=== PATIENT | female | born 1970 | race Caucasian/White ===

== ENCOUNTER 2016-06-05 14:13 | Emergency (ER) | payer OTHER ==
[~2016-06-05] VITALS: Ht 160 cm; Wt 62.0 kg
[~2016-06-05 14:13] MED LIST: CITA40TA12 PO; CYCL5TAB PO; IBUP600T44 PO
[2016-06-05 14:20] VITALS: TEMP 36.9; Ht 160 cm; Wt 62.0 kg
[2016-06-05] MEDS ORDERED: OXYCODONE HCL IR 5 MG TAB (IMMEDIATE RELEASE) PO STA (15:07)
[2016-06-05] MEDS ORDERED: TRAZ50TA35 PO (15:21)
[2016-06-05] MEDS ORDERED: SERT-234 PO (15:21)
[2016-06-05] MEDS ORDERED: KLN1X PO (15:21)
[2016-06-05] MEDS ORDERED: BUPR-83 PO (15:21)
[2016-06-05] MEDS ORDERED: ABL10 PO (15:21)
--- NOTE | 2016-06-05 16:03 | DIAGNOSTIC IMAGING REPORT ---
LUMBAR SPINE 5 VIEWS HISTORY: Pain LOW BACK PAIN, HX OF DECOMPRESSION COMPARISON: None. FINDINGS: There is no fracture. No subluxation. Moderate degenerative intervertebral this change. No acute compression deformity. IMPRESSION: Moderate degenerative change. No acute process. Electronically signed by: Derek Dewey M.D. 06/05/2016 4:01 PM
[2016-06-05] MEDS ORDERED: OXYC1TAB3 PO (16:51)
--- NOTE | 2016-06-05 16:53 | EMERGENCY ROOM VISIT NOTE ---
ED Visit Note First contact with patient: 14:36 CHIEF COMPLAINT: Low back pain 4 days HISTORY OF PRESENT ILLNESS: Patient is a 45-year-old white female who is a little over a year status post L3 through 5 lumbar decompression who presents to the emergency department for evaluation of low back pain 4 days after an injury. She has had intermittent pain and chronic right leg weakness since her lumbar decompression in March 2015. She recently was seen by her surgeon, who wanted to have a new MRI done, but her insurance would not authorize an MRI or epidural steroid injections until she completed 4-6 weeks of physical therapy. She had her initial PT assessment yesterday. She has did some stretching and heat. 4 days prior to that however, patient states that her right leg buckled on her while she was taking out the dog, and she twisted. She did not fall directly to the ground. Since then she has noticed an increase in the pain that she is experiencing in her low back. She has chronic right leg weakness, and denies any changes in this. She has pain in the midline of her low back, radiating to both of her hips bilaterally, and down her left leg which is also chronic for her. She denies any numbness, tingling or weakness. She denies any bowel or bladder incontinence or saddle anesthesias. She has been taking ibuprofen 600 mg and applying heat to the area. REVIEW OF SYSTEMS: Review of systems as per HPI. All other systems reviewed were negative. 10 systems reviewed. PMH: Electronic medical records are reviewed and summarized as above/below. See Problem List. SOCIAL HISTORY: Patient lives at home with her family. Smoker. PHYSICAL EXAM: Vital Signs: Reviewed Nurse's notes. MENTAL STATUS: Uncomfortable-appearing 45-year-old white female who was awake and alert and sitting upright on the gurney in moderate distress due to her back pain. NECK: Supple, non-tender. HEART: Regular rate and rhythm. LUNGS: Clear to auscultation. ABDOMEN: Soft, non-tender, no masses or organs felt. Bowel sounds normoactive. BACK: Well-healed midline lumbar surgical incision. She is tenderness to palpation over the lumbar spinous processes and in the paraspinous musculature. She has decreased range of motion to flexion, rotation and lateral bending. EXTREMITIES: Normal strength including dorsi-flexion and plantar flexion of the great toes and ankles, flexion and extension of the knees and flexion of the hips. Negative bilateral straight leg raising, normal and symmetrical knee and ankle reflexes. EMERGENCY DEPARTMENT COURSE: Patient was medicated with oxycodone 10 mg orally. Lumbar spine x-rays were obtained and were unremarkable. Patient is status post lumbar decompression, and according to her surgeon is likely headed for repeat surgical decompression and fusion. She has an element of chronic low back pain which I suspect was exacerbated by her twisting injury a few days ago , in addition to the physical therapy assessment from yesterday. She does not have findings consistent with acute cord compression or cauda equina syndrome. There is no evidence for acute fracture or bony abnormality. The patient was encouraged to continue to heat, take the ibuprofen, and was prescribed oxycodone to use for severe pain. She was advised to keep her physical therapy appointments so that they can assess her now with her increased pain. She should also keep her surgeon aware. She was discharged to home with her driving. She rated her pain a 3/10 at discharge. LUMBAR SPINE 5 VIEWS HISTORY: Pain LOW BACK PAIN, HX OF DECOMPRESSION COMPARISON: None. FINDINGS: There is no fracture. No subluxation. Moderate degenerative intervertebral this change. No acute compression deformity. IMPRESSION: Moderate degenerative change. No acute process. Problem List Medical Problems: (1) Acute exacerbation of chronic low back pain Status: Resolved (2) Dehydration Status: Resolved (3) Depression Status: Resolved (4) HNP (herniated nucleus pulposus), lumbar Status: Resolved (5) Hypothyroidism Status: Resolved (6) Pain of right lower leg Status: Resolved (7) Pain of right lower leg Status: Resolved (8) Renal insufficiency Status: Resolved (9) Spasm of back muscles Status: Resolved (10) Suicide attempt Status: Resolved Surgical Problems: (1) History of - tubal ligation Status: Resolved (2) Hx of decompressive lumbar laminectomy Status: Resolved Current/Historical Medications Scheduled Aripiprazole (Abilify), 10 MG PO QPM Bupropion (Wellbutrin), 100 MG PO QAM Clonazepam (Clonazepam), 1 MG PO DAILY Sertraline (Zoloft), 200 MG PO QAM Trazodone Hcl (Trazodone), 50 MG PO HS Scheduled PRN Ibuprofen (Motrin), 600 MG PO Q6H PRN for Pain Oxycodone Immediate Rel Tab (Roxicodone Ir), 1-2 TAB PO Q4H PRN for Severe Pain Allergies Coded Allergies: Penicillins (Verified Allergy, Intermediate, RASH/HIVES, 06/05/16) Ketorolac Tromethamine (Unverified Adverse Reaction, Unknown, "SWEATS AND VOMITING", 06/05/16) Vital Signs Date Time Temp Pulse Resp B/P Pulse Ox O2 Delivery O2 Flow Rate FiO2 06/05/16 17:10 80 20 138/78 97 06/05/16 14:20 36.9 105 18 111/78 95 Room Air Medications Administered Medications (Trade) Dose Ordered Sig/Larisa Route Start Time Stop Time Status Last Admin Dose Admin Oxycodone HCl (Roxicodone Immediate Rel Tab) 10 mg NOW STAT PO 06/05/16 15:07 06/05/16 15:09 DC 06/05/16 15:19 10 MG Departure Information Impression Primary Impression: Acute exacerbation of chronic low back pain Prescriptions Oxycodone Immediate Rel Tab (ROXICODONE IR) 5 Mg Tab 1-2 TAB PO Q4H Y for Severe Pain, #24 TAB For Initial Treatment Prov: Agata Jones PA 06/05/16 Referrals Malu Argueta C.R.N.P (PCP) Patient Instructions A Signature Page, My [facility] Additional Instructions DO NOT drive, drink alcohol, operate machinery, or perform dangerous activities today. You were given medications in the ER that can affect your ability to safely function or operate a vehicle. Oxycodone (OxyIR) 5mg: Take 1-2 pills every four hours for breakthrough pain. Avoid alcohol, operating machinery or dangerous equipment, working on ladders or roofs, DRIVING, or situations where being under the influence may be dangerous. It is recommended to use an [id number] stool softener such as Colace, 100mg twice daily while taking this medication to avoid constipation. Ibuprofen(Motrin, Advil) may be used for fever or pain. Use 600mg every six hours as needed. Take with food. Avoid using more than 2400mg in a 24 hour period. Do not use 2400mg per day for more than three consecutive days without physician direction. Prolonged inappropriate use can lead to stomach upset or ulcers. This medication can be taken if you need to drive, work, or perform activities which may be dangerous when taking narcotic pain medication. (AND/OR) Acetaminophen(Tylenol) may be used for fever or pain. Use 1000mg every six hours as needed. Avoid using more than 3000mg in a 24 hour period. This medication can be taken if you need to drive, work, or perform activities which may be dangerous when taking narcotic pain medication. Rest and avoid heavy lifting until your symptoms resolve and then gradually return to full activity. A good rule of thumb is if it hurts your back to perform a certain activity, then it should be avoided until you are healthy again. A heating pad, warm compresses, or a hot shower may help with tight muscles and can be done several times a day as needed. Continue current medications. Return to the ER immediately for any numbness, tingling, severe pain, loss of control of your bowels or bladder, inability to walk, or as needed. Follow up with your primary care physician within 3-5 days for a recheck of your current condition.
[2016-06-05 17:10] VITALS: BP 138/78; PULSE 80; O2SAT 97
[2016-09-27] MEDS ORDERED: FOLATAB PO (15:42)
[2016-09-27] MEDS ORDERED: ATV/1 PO (15:42)
[2016-09-27] MEDS ORDERED: NCDT21 TD (15:42)
== END 2016-06-05 17:11 | disposition home or self-care (01) ==
LOC: C.EDB 14:17 → C.EDD 17:11
DX: M54.5 Low back pain (principal); F17.210 Nicotine dependence, cigarettes, uncomplicated; E03.9 Hypothyroidism, unspecified; Z79.899 Other long term (current) drug therapy

== ENCOUNTER 2016-07-06 13:54 | Observation (INO) | payer OTHER ==
[~2016-07-06] VITALS: Ht 157.5 cm; Wt 62.5 kg
[~2016-07-06 13:54] MED LIST changes: +ABL10 PO; +BUPR-83 PO; -CITA40TA12 PO; -CYCL5TAB PO; +KLN1X PO; +OXYC1TAB3 PO; +SERT-234 PO; +TRAZ50TA35 PO
[2016-07-06] MEDS ORDERED: PANTOprazole SOD 40 MG TAB PO STA (14:30)
[2016-07-06] MEDS ORDERED: ALUMINUM/MAGNESIUM SUSP 30 ML UDC PO STA (14:30)
[2016-07-06] MEDS ORDERED: ASPIRIN 81 MG CHEW PO STA (14:39)
[2016-07-06 14:53] LABS: BASO % 0.3 %; BASO ABS # 0.03 K/uL (0-0.2); COMPLETE YES; EOS % 2.7 %; HEMATOCRIT 45.8 % (37-47); IG% 0.1 %; LYMPH % 29.7 %; LYMPH ABS # 2.65 K/uL (1.2-3.4); MEAN CORPUSCULAR HEMOGLOBIN 29.9 pg (25-34); MEAN CORPUSCULAR HGB CONC 33.2 g/dl (32-36); MEAN PLATELET VOLUME 9.2 fL (7.4-10.4); MONO % 4.6 %; NEUT % 62.6 %; PLATELET COUNT 282 K/uL (130-400); RED BLOOD COUNT 5.09 M/uL (4.2-5.4); WHITE BLOOD COUNT 8.92 K/uL (4.8-10.8)
--- NOTE | 2016-07-06 14:53 | DIAGNOSTIC IMAGING REPORT ---
CHEST ONE VIEW PORTABLE CLINICAL HISTORY: CHEST PAIN dyspnea COMPARISON STUDY: 03/14/2015 FINDINGS: The bones soft tissues and hemidiaphragms are normal. The cardiomediastinal silhouette is normal. The lungs are clear. The pulmonary vasculature is normal. IMPRESSION: Negative chest. Electronically signed by: Derek Dewey M.D. 07/06/2016 2:51 PM Dictated Date/Time: 07/06/2016 2:51 PM
[2016-07-06 15:14] LABS: INR 1.1 (0.9-1.1); PARTIAL THROMBOPLASTIN RATIO 1.1; PROTHROMBIN TIME (PATIENT) 11.3 SECONDS (9.0-12.0)
[2016-07-06 15:27] LABS: BLOOD UREA NITROGEN 7 mg/dl (7-18); BUN/CREATININE RATIO 7.4 (10-20); CALCIUM 9.2 mg/dl (8.5-10.1); CARBON DIOXIDE 25 mmol/L (21-32); CHLORIDE 106 mmol/L (98-107); CREATININE 0.88 mg/dl (0.60-1.20); GLUCOSE 71 mg/dl (70-99); MAGNESIUM 1.9 mg/dl (1.8-2.4); POTASSIUM 4.1 mmol/L (3.5-5.1); SODIUM 140 mmol/L (136-145)
[2016-07-06 15:28] LABS: ALT/SGPT 34 U/L (12-78)
[2016-07-06 15:32] LABS: ALKALINE PHOSPHATASE 107 U/L (45-117); AST/SGOT 23 U/L (15-37)
[2016-07-06] MEDS ORDERED: DiphenhydrAMINE HCL 50 MG/ML VIAL IV PRN (16:15)
[2016-07-06] MEDS ORDERED: ZOLPIDEM TARTRATE 5 MG TAB PO PRN (16:15)
[2016-07-06] MEDS ORDERED: PROMETHAZINE HCL INJ 12.5 MG in SODIUM CHLORIDE 0.9% 50ML 50 ML IV PRN (16:15)
[2016-07-06] MEDS ORDERED: ALUMINUM/MAGNESIUM/SIMETH (MAALOX MAX) 30 ML UDC PO PRN (16:15)
[2016-07-06] MEDS ORDERED: NITROGLYCERIN 0.4 MG SL PER TAB CHARGE SL PRN (16:15)
[2016-07-06] MEDS ORDERED: MoRPHine SULFATE 2 MG/ML CARP IV PRN (16:15)
[2016-07-06] MEDS ORDERED: ACETAMINOPHEN 325 MG TAB PO PRN (16:15)
[2016-07-06] MEDS ORDERED: ONDANSETRON INJ 2 MG/ML 2 ML VIAL IV PRN (16:15)
[2016-07-06] MEDS ORDERED: MAGNESIUM HYDROXIDE SUSP 30 ML UDC PO PRN (16:15)
[2016-07-06] MEDS ORDERED: LORAZEPAM 2 MG/ML 1 ML VIAL IV PRN (16:15)
--- NOTE | 2016-07-06 16:22 | EMERGENCY ROOM VISIT NOTE ---
History Report prepared by Oren: Shar Philip Under the Supervision of: Dr. Eloy Mcmullen D.O. First contact with patient: 14:25 Chief Complaint: CHEST PAIN Stated Complaint: CHEST PAIN, LIGHT HEADED,BACK PAIN Nursing Triage Summary: pt reports upon waking this am had lower back pain went to [place] . now sciatica is bothering her strated having mid chest pain and sob started approx 1315 today History of Present Illness The patient is a 45 year old female who presents to the Emergency Room with complaints of improving chest pain since approximately 1300 today. The pain is mostly in the center of her chest, and is rated 5/10 in severity. The patient also complains of lightheadedness. She denies any shortness of breath or leg pain. The patient hasn't seen her PCP in several months. LNMP was two years ago secondary to menopause. The patient has chronic back pain secondary to surgery last year. The patient does not have a history of heart disease. She has never had a stress test or cardiac catheterization. The patient does not have a history of cancer or blood clots. There is no family history of sudden . Source of History: patient Onset: 1300 today Position: chest (center) Symptom Intensity: excruciating (5/10) Timing: other (improving) Associated Symptoms: No SOB Review of Systems See HPI for pertinent positives & negatives. A total of 10 systems reviewed and were otherwise negative. Past Medical & Surgical Medical Problems: (1) Acute exacerbation of chronic low back pain (2) Dehydration (3) Depression (4) HNP (herniated nucleus pulposus), lumbar (5) Hypothyroidism (6) Pain of right lower leg (7) Pain of right lower leg (8) Precordial chest pain (9) Renal insufficiency (10) Spasm of back muscles (11) Suicide attempt Surgical Problems: (1) History of - tubal ligation (2) Hx of decompressive lumbar laminectomy Family History Cancer Hypertension Lung disease Social History Smoking Status: Current Every Day Smoker Alcohol Use: none Marital Status: Housing Status: lives with family Occupation Status: employed Current/Historical Medications Scheduled Aripiprazole (Abilify), 10 MG PO QPM Bupropion (Wellbutrin), 100 MG PO QAM Clonazepam (Clonazepam), 1 MG PO DAILY Sertraline (Zoloft), 100 MG PO QAM Trazodone Hcl (Trazodone), 50 MG PO HS Scheduled PRN Ibuprofen (Motrin), 600 MG PO Q6H PRN for Pain Allergies Coded Allergies: Penicillins (Verified Allergy, Intermediate, RASH/HIVES, 07/06/16) Ketorolac Tromethamine (Unverified Adverse Reaction, Unknown, "SWEATS AND VOMITING", 07/06/16) Physical Exam Vital Signs Date Time Temp Pulse Resp B/P Pulse Ox O2 Delivery O2 Flow Rate FiO2 07/06/16 16:00 70 20 129/75 98 Room Air 07/06/16 14:48 100 18 116/73 97 Room Air 07/06/16 14:16 92 07/06/16 13:58 36.6 109 18 121/85 97 Room Air Physical Exam GENERAL: Patient is awake, alert, and in no acute distress. Patient is resting comfortably and showing no signs of anxiety EYES: The conjunctivae are clear. The pupils are round and reactive. EARS, NOSE, MOUTH AND THROAT: The nose is without any evidence of any deformity. Mucous membranes are moist tongue is midline NECK: The neck is nontender and supple. RESPIRATORY: Normal respiratory effort is noted there is no evidence of wheezing rhonchi or rales CARDIOVASCULAR: Regular rate and rhythm noted there no murmurs rubs or gallops normal S1 normal S2 GASTROINTESTINAL: The abdomen is soft. Bowel sounds are present in all quadrants. Abdomen is nontender MUSCULOSKELETAL/EXTREMITIES: There is no evidence of gross deformity full range of motion is noted in the hips and shoulders SKIN: There is no obvious evidence of any rash. There are no petechiae, pallor or cyanosis noted. NEUROLOGIC: Patient is awake alert and oriented x3. Medical Decision & Procedures ER Provider Diagnostic Interpretation: X-ray results as stated below per interpretation by me and the radiologist. CHEST ONE VIEW PORTABLE CLINICAL HISTORY: CHEST PAIN dyspnea COMPARISON STUDY: 03/14/2015 FINDINGS: The bones soft tissues and hemidiaphragms are normal. The cardiomediastinal silhouette is normal. The lungs are clear. The pulmonary vasculature is normal. IMPRESSION: Negative chest. Electronically signed by: Derek Dewey M.D. 07/06/2016 2:51 PM Dictated Date/Time: 07/06/2016 2:51 PM Laboratory Results 07/06/16 14:40 Red Blood Count 5.09, Mean Corpuscular Volume 90.0, Mean Corpuscular Hemoglobin 29.9, Mean Corpuscular Hemoglobin Concent 33.2, Mean Platelet Volume 9.2, Neutrophils (%) (Auto) 62.6, Lymphocytes (%) (Auto) 29.7, Monocytes (%) (Auto) 4.6, Eosinophils (%) (Auto) 2.7, Basophils (%) (Auto) 0.3, Neutrophils # (Auto) 5.58, Lymphocytes # (Auto) 2.65, Monocytes # (Auto) 0.41, Eosinophils # (Auto) 0.24, Basophils # (Auto) 0.03 07/06/16 14:40 Test 07/06/16 14:40 White Blood Count 8.92 K/uL (4.8-10.8) Red Blood Count 5.09 M/uL (4.2-5.4) Hemoglobin 15.2 g/dL (12.0-16.0) Hematocrit 45.8 % (37-47) Mean Corpuscular Volume 90.0 fL (80-100) Mean Corpuscular Hemoglobin 29.9 pg (25-34) Mean Corpuscular Hemoglobin Concent 33.2 g/dl (32-36) Platelet Count 282 K/uL (130-400) Mean Platelet Volume 9.2 fL (7.4-10.4) Neutrophils (%) (Auto) 62.6 % Lymphocytes (%) (Auto) 29.7 % Monocytes (%) (Auto) 4.6 % Eosinophils (%) (Auto) 2.7 % Basophils (%) (Auto) 0.3 % Neutrophils # (Auto) 5.58 K/uL (1.4-6.5) Lymphocytes # (Auto) 2.65 K/uL (1.2-3.4) Monocytes # (Auto) 0.41 K/uL (0.11-0.59) Eosinophils # (Auto) 0.24 K/uL (0-0.5) Basophils # (Auto) 0.03 K/uL (0-0.2) RDW Standard Deviation 44.4 fL (36.4-46.3) RDW Coefficient of Variation 13.5 % (11.5-14.5) Immature Granulocyte % (Auto) 0.1 % Immature Granulocyte # (Auto) 0.01 K/uL (0.00-0.02) Prothrombin Time 11.3 SECONDS (9.0-12.0) Prothromb Time International Ratio 1.1 (0.9-1.1) Activated Partial Thromboplast Time 29.1 SECONDS (21.0-31.0) Partial Thromboplastin Ratio 1.1 D-Dimer 380 ug/L FEU (0-500) Anion Gap 9.0 mmol/L (3-11) Est Creatinine Clear Calc Drug Dose 68.5 ml/min Estimated GFR () 90.7 Estimated GFR (Non- 78.2 BUN/Creatinine Ratio 7.4 (10-20) Calcium Level 9.2 mg/dl (8.5-10.1) Magnesium Level 1.9 mg/dl (1.8-2.4) Total Bilirubin 0.2 mg/dl (0.2-1) Direct Bilirubin < 0.1 mg/dl (0-0.2) Aspartate Amino Transf (AST/SGOT) 23 U/L (15-37) Alanine Aminotransferase (ALT/SGPT) 34 U/L (12-78) Alkaline Phosphatase 107 U/L (45-117) Total Protein 8.1 gm/dl (6.4-8.2) Albumin 3.7 gm/dl (3.4-5.0) Lipase 81 U/L (73-393) Thyroid Stimulating Hormone (TSH) 1.190 uIu/ml (0.300-4.500) Laboratory results per my review. Medications Administered Medications (Trade) Dose Ordered Sig/Larisa Route Start Time Stop Time Status Last Admin Dose Admin Al Hydroxide/Mg Hydroxide (Maalox Susp) 30 ml NOW STAT PO 07/06/16 14:30 07/06/16 14:31 DC 07/06/16 14:39 30 ML Pantoprazole Sodium (Protonix Tab) 40 mg NOW STAT PO 07/06/16 14:30 07/06/16 14:31 DC 07/06/16 14:39 40 MG Aspirin (Aspirin Chew) 324 mg NOW STAT PO 07/06/16 14:39 07/06/16 14:40 DC 07/06/16 14:41 324 MG ECG Indication: chest pain Rate (beats per minute): 99 Rhythm: normal sinus Findings: T-wave inversion (inferior, lateral), no acute ischemic change, no ectopy Change: Changes are new compared to March 02, 2015. ED Course 1428: The patient was evaluated in room B8. A complete history and physical examination were performed. 1430: Protonix 40 mg PO, Maalox Susp 30 ml PO. 1434: Aspirin 324 mg PO. 1610: [facility] The patient will be evaluated. 1615: Reassessed the patient. They are aware of the treatment plan. Medical Decision Etiologies such as cardiac ischemia, aortic dissection, pulmonary embolism, pneumonia, pneumothorax, musculoskeletal, infections, pericarditis, myocarditis , esophageal rupture, gastrointestinal, as well as others were entertained. Nursing notes reviewed. The patient is a 45-year-old female who presented to the emergency department for evaluation of chest pain. The patient had a very emotional episode which was followed by substernal chest pain. Her initial EKG did reveal signs of possible ischemia with T-wave inversion in the inferior and lateral leads. The patient was treated with aspirin and Maalox in Protonix in the emergency department. She continued to be pain-free while in the emergency department. I discussed the patient's laboratory and radiographic studies with her. I also discussed the limitations of the emergency department workup for chest pain with her. On subsequent reevaluation she was feeling much better. Given the patient's abnormal EKG I also discussed his case with the on-call [facility]. They have agreed to evaluate the patient in the emergency department for further management and disposition. Consults Time Called: [phone] Consulting Physician: [facility] Returned Call: [phone]: Sp[facility]. The patient will be evaluated. Impression Primary Impression: Substernal chest pain Additional Impression: Abnormal EKG Scribe Attestation The scribe's documentation has been prepared under my direction and personally reviewed by me in its entirety. I confirm that the note above accurately reflects all work, treatment, procedures, and medical decision making performed by me. Departure Information Dispostion Being Evaluated By Hospitalist Referrals Malu Argueta, Belén (PCP) Patient Instructions My [facility] Problem Qualifiers
[2016-07-06 16:25] VITALS: O2SAT 98; Ht 157.5 cm; Wt 62.5 kg
[2016-07-06] MEDS ORDERED: TRAMADOL HCL 50 MG TAB PO PRN (16:30)
[2016-07-06] MEDS ORDERED: IV FLUIDS COMPLETED PRN (16:30)
[2016-07-06] MEDS ORDERED: MoRPHine SULFATE 4 MG/ML 1 ML CARP\\VIAL IV PRN (16:45)
[2016-07-06] MEDS ORDERED: LORAZEPAM INJ 0.5 MG in SYRINGE 0.75 ML IV PRN (17:00)
[2016-07-06 17:14] VITALS: O2SAT 95
[2016-07-06 17:29] VITALS: BP 115/84; PULSE 85; TEMP 37; O2SAT 97
[2016-07-06] MEDS: ACETAMINOPHEN 325 MG TAB PO PRN (17:41)
[2016-07-06] MEDS: TRAMADOL HCL 50 MG TAB PO PRN ×2 (17:41→22:35)
[2016-07-06 18:42] LABS: CKMB/CK RATIO 2.6 (0-3.0)
[2016-07-06] MEDS ORDERED: NICOTINE 14 MG/24 HR TDSY TD ONE (19:15)
[2016-07-06 19:24] VITALS: BP 101/71; PULSE 82; TEMP 36.4; O2SAT 94
--- NOTE | 2016-07-06 20:01 | History and Physical ---
History & Physical Date & Time of Service: Jul 06, 2016 at 19:48 Chief Complaint: Precordial Chest Pain Primary Care Physician: Malu Argueta C.R.N.P History of Present Illness Source: patient, spouse The patient is a 45-year-old female who presents emergency department with an episode of severe precordial chest pain, lightheadedness and shortness of breath that began at 1300 hrs. today. She was on her way to see a disability physician at [place], and had just found out that there was no appointment actually scheduled for the day. She's been dealing with chronic low back pain since her surgery by Dr. Devlin in September 2015. She has no family history of heart disease, has never been known to have any previous episodes of chest discomfort. She's never had a stress test. Past Medical/Surgical History Medical Problems: (1) Acute exacerbation of chronic low back pain Status: Resolved (2) Dehydration Status: Resolved (3) Depression Status: Resolved (4) HNP (herniated nucleus pulposus), lumbar Status: Resolved (5) Hypothyroidism Status: Resolved (6) Pain of right lower leg Status: Resolved (7) Pain of right lower leg Status: Resolved (8) Renal insufficiency Status: Resolved (9) Spasm of back muscles Status: Resolved (10) Suicide attempt Status: Resolved Surgical Problems: (1) History of - tubal ligation Status: Resolved (2) Hx of decompressive lumbar laminectomy Status: Resolved Family History Cancer Hypertension Lung disease Social History Smoking Status: Current Every Day Smoker Marital Status: Housing status: lives with family Occupational Status: employed Multi-Drug Resistant Organisms History of MDRO: No Allergies Coded Allergies: Penicillins (Verified Allergy, Intermediate, RASH/HIVES, 07/06/16) Ketorolac Tromethamine (Unverified Adverse Reaction, Unknown, "SWEATS AND VOMITING", 07/06/16) Home Medications Scheduled Aripiprazole (Abilify), 10 MG PO QPM Bupropion (Wellbutrin), 100 MG PO QAM Clonazepam (Clonazepam), 1 MG PO DAILY Sertraline (Zoloft), 100 MG PO QAM Trazodone Hcl (Trazodone), 50 MG PO HS Scheduled PRN Ibuprofen (Motrin), 600 MG PO Q6H PRN for Pain Review of Systems The patient denies cough, lower extremity swelling, vision change, hearing change, sore throat, fevers, chills, sweats, weight change, fatigue, nausea, vomiting, abdominal pain, pelvic pain, blood in urine or stool, dysuria, urinary frequency or urgency, dizziness, headache, memory loss, rash, abnormal bruising or bleeding, imbalance, focal or generalized weakness, numbness or tingling in arms or legs, arthralgias or myalgias, night sweats, or allergy symptoms. The review of systems is otherwise negative other than for that already noted above, and at least 10 systems have been reviewed. Physical Exam Vital Signs Date Time Temp Pulse Resp B/P Pulse Ox O2 Delivery O2 Flow Rate FiO2 07/06/16 17:29 37.0 85 20 115/84 97 Room Air 07/06/16 17:14 88 115/80 95 Room Air 07/06/16 16:25 98 Room Air 07/06/16 16:00 70 20 129/75 98 Room Air 07/06/16 14:48 100 18 116/73 97 Room Air 07/06/16 14:16 92 07/06/16 13:58 36.6 109 18 121/85 97 Room Air The patient is awake, well-developed and adequately nourished, alert and oriented 3, normocephalic and atraumatic, lying in bed and in no acute distress. HEENT--PERRL, EOMI, mucous membranes and oropharynx dry. Neck--supple, no JVD or bruits, thyroid normal, trachea midline, no adenopathy. Heart--normal S1 and S2, no extra beats, no murmurs, rubs or gallops. Lungs--clear bilaterally, no respiratory distress, no accessory muscle use. Abdomen--normal bowel sounds and soft, nontender and nondistended, no hernias or masses, no organomegaly. Extremities--no cyanosis, clubbing or edema. There are good distal pulses b/l. Dermatologic--normal skin turgor, normal color, warm and dry, no abnormal lymph nodes, no rash. Neurologic--cranial nerves II through XII grossly intact, motor and sensory examination normal. Rheumatologic--normal range of motion, nontender, muscles and joints. Psychiatric--normal affect. Diagnostics Laboratory Results Results Past 24 Hours Test 07/06/16 14:40 07/06/16 17:54 Range/Units White Blood Count 8.92 4.8-10.8 K/uL Red Blood Count 5.09 4.2-5.4 M/uL Hemoglobin 15.2 12.0-16.0 g/dL Hematocrit 45.8 37-47 % Mean Corpuscular Volume 90.0 80-100 fL Mean Corpuscular Hemoglobin 29.9 25-34 pg Mean Corpuscular Hemoglobin Concent 33.2 32-36 g/dl Platelet Count 282 130-400 K/uL Mean Platelet Volume 9.2 7.4-10.4 fL Neutrophils (%) (Auto) 62.6 % Lymphocytes (%) (Auto) 29.7 % Monocytes (%) (Auto) 4.6 % Eosinophils (%) (Auto) 2.7 % Basophils (%) (Auto) 0.3 % Neutrophils # (Auto) 5.58 1.4-6.5 K/uL Lymphocytes # (Auto) 2.65 1.2-3.4 K/uL Monocytes # (Auto) 0.41 0.11-0.59 K/uL Eosinophils # (Auto) 0.24 0-0.5 K/uL Basophils # (Auto) 0.03 0-0.2 K/uL RDW Standard Deviation 44.4 36.4-46.3 fL RDW Coefficient of Variation 13.5 11.5-14.5 % Immature Granulocyte % (Auto) 0.1 % Immature Granulocyte # (Auto) 0.01 0.00-0.02 K/uL Prothrombin Time 11.3 9.0-12.0 SECONDS Prothromb Time International Ratio 1.1 0.9-1.1 Activated Partial Thromboplast Time 29.1 21.0-31.0 SECONDS Partial Thromboplastin Ratio 1.1 D-Dimer 380 0-500 ug/L FEU Sodium Level 140 136-145 mmol/L Potassium Level 4.1 3.5-5.1 mmol/L Chloride Level 106 98-107 mmol/L Carbon Dioxide Level 25 21-32 mmol/L Anion Gap 9.0 3-11 mmol/L Blood Urea Nitrogen 7 7-18 mg/dl Creatinine 0.88 0.60-1.20 mg/dl Est Creatinine Clear Calc Drug Dose 68.5 ml/min Estimated GFR () 90.7 Estimated GFR (Non- 78.2 BUN/Creatinine Ratio 7.4 10-20 Random Glucose 71 70-99 mg/dl Calcium Level 9.2 8.5-10.1 mg/dl Magnesium Level 1.9 1.8-2.4 mg/dl Total Bilirubin 0.2 0.2-1 mg/dl Direct Bilirubin < 0.1 0-0.2 mg/dl Aspartate Amino Transf (AST/SGOT) 23 15-37 U/L Alanine Aminotransferase (ALT/SGPT) 34 12-78 U/L Alkaline Phosphatase 107 45-117 U/L Troponin I < 0.015 < 0.015 0-0.045 ng/ml Total Protein 8.1 6.4-8.2 gm/dl Albumin 3.7 3.4-5.0 gm/dl Lipase 81 73-393 U/L Total Creatine Kinase 47 26-192 U/L Creatine Kinase MB 1.2 0.5-3.6 ng/ml Creatine Kinase MB Ratio 2.6 0-3.0 Diagnostic Radiology Patient Name: CLEO RODGERS Unit Number: [id number] Dictated: 07/06/161450 Transcribed: 07/06/161450 MS Printed Date/Time: [~ rep prt dt]/[~ rep prt tm] [~ rep ct labl] - [~ rep ct ivnm] [facility] [place] [address] Dictated: 07/06/161450 Transcribed: 07/06/16 145 MS Printed Date/Time: [~ rep prt dt]/[~ rep prt tm] [~ rep ct labl] - [~ rep ct ivnm] CHEST ONE VIEW PORTABLE CLINICAL HISTORY: CHEST PAIN dyspnea COMPARISON STUDY: 03/14/2015 FINDINGS: The bones soft tissues and hemidiaphragms are normal. The cardiomediastinal silhouette is normal. The lungs are clear. The pulmonary vasculature is normal. IMPRESSION: Negative chest. Electronically signed by: Derek Dewey M.D. 07/06/2016 2:51 PM Dictated Date/Time: 07/06/2016 2:51 PM The status of this report is Signed. Draft = Not yet reviewed or approved by Radiologist. Signed = Reviewed and approved by Radiologist. <AttendingPhy></AttendingPhy> <FamilyPhy>Malu Argueta C.R.N.P</FamilyPhy> < PrimaryPhy>Malu Argueta C.R.N.P</PrimaryPhy> <UnitNumber>[id number]</ UnitNumber> <VisitNumber>[id number]</VisitNumber> <PatientName>CLEO RODGERS</PatientName> <DateOfBirth>1970</DateOfBirth> <Location>C.EDB</ Location> <ServiceDate>07/06/16</ServiceDate> <MNE>ESINDI</MNE> <OrderingPhy> Eloy Mcmullen D.O.</OrderingPhy> <OrderingPhyMNE>f rep ord dr [place]</ OrderingPhyMNE> <DictatingPhyMNE>f rep dict dr [place]</DictatingPhyMNE> <CCListMNE> f rep ct vipule</CCListMNE> <AdmittingPhyMNE>f pt admit dr [place]</AdmittingPhyMNE> < AttendingPhyMNE>f pt attend dr [place]</AttendingPhyMNE> <ConsultingPhyMNE>f pt consult dr [place]</ConsultingPhyMNE> <FamilyPhyMNE>f pt fam dr [place]</FamilyPhyMNE> <OtherPhyMNE>f pt other dr [place]</OtherPhyMNE> < PrimaryPhyMNE>f pt prim care dr [place]</PrimaryPhyMNE> <ReferringPhyMNE>f pt referring dr [place]</ReferringPhyMNE> EKG EKG #1: Shows normal sinus rhythm at 99, with ST T-wave flattening in V4 through V6, leads 2, 3 and aVL. EKG #2: Shows normal sinus rhythm at 80, with no acute ST-T changes. Impression Assessment and Plan Precordial chest pain with transient and resolved inferior lateral ischemic changes on EKGs--patient admitted to telemetry unit, for serial cardiac enzymes , cardiac rhythm monitoring and a 2-D echocardiogram with Dopplers. Place on aspirin 81 mg by mouth every morning. Anxiety/depression/history of suicide attempt--continue Abilify 10 mg by mouth every afternoon, Wellbutrin 100 mg by mouth every morning, clonazepam 1 mg by mouth daily, sertraline 100 mg by mouth every morning, and trazodone 50 mg by mouth at bedtime. 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 Hypothyroidism history--presently on no medications. We'll check a TSH level. Level of Care Telemetry Advanced Directives Existing Advance Directive: No Existing Living Will: No Existing Power of Coal Digger: No Resuscitation Status FULL RESUSCITATION VTE Prophylaxis VTE Risk Assessment Done? Y/N: Yes Risk Level: Low Given or contraindicated: SCD's Social Service Consult None Apply
[2016-07-06] MEDS: ARIPIprazole TAB 10 MG TAB PO SCH (22:33)
[2016-07-06] MEDS: DOCUSATE SODIUM 100 MG CAP PO SCH (22:33)
[2016-07-06] MEDS: TRAZODONE HCL 50 MG TAB PO SCH (22:33)
[2016-07-06 23:10] VITALS: BP 109/75; PULSE 71; TEMP 36.7; O2SAT 91
[2016-07-07 00:49] LABS: CKMB/CK RATIO 1.8 (0-3.0)
[2016-07-07 04:03] VITALS: BP 103/70; PULSE 70; TEMP 36.7; O2SAT 95
[2016-07-07 07:41] LABS: BASO % 0.6 %; BASO ABS # 0.04 K/uL (0-0.2); COMPLETE YES; EOS % 3.7 %; HEMATOCRIT 45.6 % (37-47); IG% 0.1 %; LYMPH % 30.1 %; LYMPH ABS # 2.01 K/uL (1.2-3.4); MEAN CELL VOLUME 91.4 fL (80-100); MEAN CORPUSCULAR HEMOGLOBIN 30.9 pg (25-34); MEAN CORPUSCULAR HGB CONC 33.8 g/dl (32-36); MEAN PLATELET VOLUME 9.1 fL (7.4-10.4); NEUT % 59.5 %; PLATELET COUNT 268 K/uL (130-400); RED BLOOD COUNT 4.99 M/uL (4.2-5.4); WHITE BLOOD COUNT 6.68 K/uL (4.8-10.8)
[2016-07-07 08:09] VITALS: BP 98/70; PULSE 84; TEMP 36.5; O2SAT 95
[2016-07-07 08:14] LABS: CALCIUM 8.8 mg/dl (8.5-10.1); CREATININE 0.92 mg/dl (0.60-1.20); MAGNESIUM 2.1 mg/dl (1.8-2.4); POTASSIUM 4.1 mmol/L (3.5-5.1)
[2016-07-07 08:39] LABS: CKMB/CK RATIO 1.7 (0-3.0)
[2016-07-07] MEDS: ASPIRIN 81 MG CHEW PO SCH (08:57)
[2016-07-07] MEDS: SERTRALINE HCL 100 MG TAB PO SCH (08:57)
[2016-07-07] MEDS: NICOTINE 14 MG/24 HR TDSY TD SCH (08:58)
[2016-07-07] MEDS: DOCUSATE SODIUM 100 MG CAP PO SCH ×2 (08:58→20:30)
[2016-07-07] MEDS: ACETAMINOPHEN 325 MG TAB PO PRN (09:02)
[2016-07-07] MEDS: CLONAZEPAM 1 MG TAB PO SCH (09:02)
[2016-07-07] MEDS: TRAMADOL HCL 50 MG TAB PO PRN ×3 (09:02→20:31)
[2016-07-07 12:53] VITALS: BP 104/73; PULSE 76; TEMP 36.7; O2SAT 97
[2016-07-07 16:00] VITALS: BP 110/76; PULSE 76; TEMP 36.7; O2SAT 97
--- NOTE | 2016-07-07 16:09 | Progress Note ---
Subjective Date of Service: Jul 07, 2016. Subjective Pt evaluation today including: conversation w/ patient, physical exam, chart review, lab review, review of studies (EKGs), review of inpatient medication list Pain: back pain - at baseline PO Intake: normal Voiding: no voiding problems patient states chest pain was exertional in nature yesterday. Was walking from a doctor's office to her car when it occurred. Lasted 5 min then self-resolved. Denies any other sob, freedman, chest pain or tightness, GERD symptoms, worsening fatigue, etc over the last few weeks-months. no family h/o CAD pt DOES smoke and has been told she has high cholesterol. no h/o stress test. Problem List Medical Problems: (1) Abnormal EKG Status: Acute (2) Substernal chest pain Status: Acute Review of Systems Constitutional: No chills, No fever Respiratory: No cough, No sputum, No wheezing Cardiac: No PND, No chest pain, No edema, No orthopnea Abdomen: No nausea, No pain, No vomiting Objective Vital Signs Date Time Temp Pulse Resp B/P Pulse Ox O2 Delivery O2 Flow Rate FiO2 07/07/16 12:53 36.7 76 16 104/73 97 Room Air 07/07/16 12:01 Room Air 07/07/16 08:09 36.5 84 20 98/70 95 Room Air 07/07/16 08:04 Room Air 07/07/16 04:03 36.7 70 20 103/70 95 Room Air 07/07/16 04:00 Room Air 07/07/16 00:00 Room Air 07/06/16 23:10 36.7 71 16 109/75 91 Room Air 07/06/16 20:00 Room Air 07/06/16 19:24 36.4 82 20 101/71 94 Room Air 07/06/16 17:29 37.0 85 20 115/84 97 Room Air 07/06/16 17:14 88 115/80 95 Room Air 07/06/16 16:25 98 Room Air Physical Exam General Appearance: no apparent distress ENT: pharynx normal Neck: no adenopathy, thyroid normal, no JVD Respiratory/Chest: lungs clear (scant end-exp wheeze b/l ), no respiratory distress, no accessory muscle use Cardiovascular: regular rate, rhythm, no gallop, no murmur, + pertinent finding (no reproducible chest wall pain) Abdomen: normal bowel sounds, soft, no organomegaly, + tenderness (mild, high epigastric region, with deep palpation ) Extremities: no pedal edema Neurologic/Psychiatric: alert, oriented x 3 Skin: no rash, + pertinent finding (clubbing of fingernails ) Lymphatic: no adenopathy Laboratory Results Last 24 Hours Test 07/06/16 17:54 07/07/16 00:15 07/07/16 07:34 Total Creatine Kinase 47 U/L 44 U/L 46 U/L Creatine Kinase MB 1.2 ng/ml 0.8 ng/ml 0.8 ng/ml Creatine Kinase MB Ratio 2.6 1.8 1.7 Troponin I < 0.015 ng/ml < 0.015 ng/ml < 0.015 ng/ml White Blood Count 6.68 K/uL Red Blood Count 4.99 M/uL Hemoglobin 15.4 g/dL Hematocrit 45.6 % Mean Corpuscular Volume 91.4 fL Mean Corpuscular Hemoglobin 30.9 pg Mean Corpuscular Hemoglobin Concent 33.8 g/dl Platelet Count 268 K/uL Mean Platelet Volume 9.1 fL Neutrophils (%) (Auto) 59.5 % Lymphocytes (%) (Auto) 30.1 % Monocytes (%) (Auto) 6.0 % Eosinophils (%) (Auto) 3.7 % Basophils (%) (Auto) 0.6 % Neutrophils # (Auto) 3.97 K/uL Lymphocytes # (Auto) 2.01 K/uL Monocytes # (Auto) 0.40 K/uL Eosinophils # (Auto) 0.25 K/uL Basophils # (Auto) 0.04 K/uL RDW Standard Deviation 45.0 fL RDW Coefficient of Variation 13.5 % Immature Granulocyte % (Auto) 0.1 % Immature Granulocyte # (Auto) 0.01 K/uL Sodium Level 141 mmol/L Potassium Level 4.1 mmol/L Chloride Level 104 mmol/L Carbon Dioxide Level 29 mmol/L Anion Gap 8.0 mmol/L Blood Urea Nitrogen 7 mg/dl Creatinine 0.92 mg/dl Est Creatinine Clear Calc Drug Dose 65.5 ml/min Estimated GFR () 85.9 Estimated GFR (Non- 74.2 BUN/Creatinine Ratio 8.0 Random Glucose 69 mg/dl Calcium Level 8.8 mg/dl Magnesium Level 2.1 mg/dl Assessment and Plan 45yo female with: 1. chest pain - resolved. Cardiac enzymes negative x 4 sets. Risk factors for CAD - heavy tobacco use, ?hyperlipidemia. EKG at presentation showed inferior and anterolateral ST changes. EKG this am shows resolution of such. In light of risk factors and EKG changes plan for NPO after MN tonight with dobutamine stress echo in AM (cannot walk on treadmill due to back pain). check lipids in AM. await 2D echo. 2. hypothyroidism - compensated; TSH normal. Cont synthroid. 3. schizoaffective d/o - cont all outpatient meds. 4. chronic low back pain s/p surgery [address] Devlin - pain meds prn. 5. mild epigastric tenderness - if stress is negative ... GERD? consider PPI. 6. mildly low glucose (69 this AM) - since NPO tonight will add dextrose containing fluids overnight. 7. DVT proph - add lovenox. 8. tobacco dependence - heavy. nicoderm patch. children's counselor to quit. clubbing of fingernails concerning - I voiced this to her during my visit. Continued [facility] stay due to: other (need for stress test tomorrow ) Discharge planning: home
[2016-07-07] MEDS ORDERED: ENOXAPARIN 40 MG/0.4 ML SYR SQ ONE (16:15)
[2016-07-07] MEDS: D5W AND 1/2NSS 1,000 ML IV SCH (16:36)
[2016-07-07 19:58] VITALS: BP 90/58; PULSE 72; TEMP 36.8; O2SAT 96
[2016-07-07] MEDS: ARIPIprazole TAB 10 MG TAB PO SCH (20:31)
[2016-07-07] MEDS: TRAZODONE HCL 50 MG TAB PO SCH (20:31)
[2016-07-07 23:53] VITALS: BP 88/60; PULSE 75; TEMP 36.6; O2SAT 96
[2016-07-08 04:05] VITALS: BP 109/76; PULSE 68; TEMP 36.4; O2SAT 96
[2016-07-08 07:25] LABS: CHOLESTEROL/HDL RATIO 5.2
[2016-07-08 07:53] VITALS: BP 130/88; PULSE 71; TEMP 36.9; O2SAT 95
[2016-07-08] MEDS: NICOTINE 14 MG/24 HR TDSY TD SCH (07:57)
[2016-07-08] MEDS: DOCUSATE SODIUM 100 MG CAP PO SCH (07:57)
[2016-07-08] MEDS: SERTRALINE HCL 100 MG TAB PO SCH (07:57)
[2016-07-08] MEDS: ASPIRIN 81 MG CHEW PO SCH (08:00)
[2016-07-08] MEDS: CLONAZEPAM 1 MG TAB PO SCH (08:00)
[2016-07-08] MEDS ORDERED: ENOXAPARIN 40 MG/0.4 ML SYR SQ SCH (09:00)
[2016-07-08] MEDS ORDERED: ATROPINE SULFATE 0.1 MG/ML 5ML SYR ONE (09:38)
[2016-07-08] MEDS ORDERED: METOPROLOL TARTRATE 1 MG/ML VIAL ONE ×2 (09:38→10:22)
[2016-07-08] MEDS ORDERED: DOBUTamine HCL 12.5 MG/ML 20 ML VIAL ONE (09:38)
--- NOTE | 2016-07-08 09:41 | ECHOCARDIOGRAM REPORT ---
*NOTICE TO RECEIVING CONSTITUTION PARTY AGENCY This information is strictly Confidential and protected under [place] law. [place] law prohibits you from making any further disclosure of this information unless further disclosure is expressly permitted by the written consent of the person to whom it pertains or is authorized by law. A general authorization for the release of medical or other information is not sufficient for this purpose. Hospital accepts no responsibility if the information is made available to any other person, INCLUDING THE PATIENT. Interpretation Summary * Name: CLEO RODGERS Study Date: 07/07/2016 06:25 AM BP: 103/70 mmHg * Patient Location: C.2T\S\S243\S\1 HR: 76 * : 1970 (M/d/yyyy) Gender: Female Height: 62 in * Age: 45 yrs Ethnicity: CA Weight: 136 lb * Ordering Physician: Micah Dominguez * Referring Physician: Self, Referred * Performed By: Karoline West RCS * * Reason For Study: CHEST PAIN * BSA: 1.6 m2 * Normal biventricular systolic function. * Normal chamber dimensions. * Trace mitral and tricuspid regurgitation. Procedure Details * A complete two-dimensional transthoracic echocardiogram was performed (2D, M-mode, Doppler and color flow Doppler). Left Ventricle * The left ventricle is normal in size. * There is normal left ventricular wall thickness. * Ejection Fraction = 55-60%. * Left ventricular systolic function is normal. * The left ventricular wall motion is normal. Right Ventricle * The right ventricle is normal in size and function. Atria * The left atrial size is normal. * Right atrial size is normal. * No ASD detected; PFO is not assessed. Mitral Valve * The mitral valve is normal. * There is no mitral valve stenosis. * There is trace mitral regurgitation. Tricuspid Valve * The tricuspid valve is normal. * There is no tricuspid stenosis. * There is trace tricuspid regurgitation. Aortic Valve * The aortic valve is trileaflet. * The aortic valve opens well. * Aortic stenosis is absent. * No aortic regurgitation is present. Pulmonic Valve * The pulmonic valve is not well visualized. * There is no pulmonic valvular stenosis. * There is no pulmonic valvular regurgitation. Great Vessels * The aortic root is normal size. Pericardium/Pleural * There is no pericardial effusion. Great Vessels * Normal inferior vena cava diameter and respiratory variation suggests normal central venous pressure. MMode 2D Measurements and Calculations IVSd 10 cm IVSs 1.1 cm LVIDd 4.3 cm LVIDs 2.9 cm LVPWd 0.87 cm LVPWs 1.2 cm IVS/LVPW 1.1 FS 32.4 % EDV(Teich) 83.2 ml ESV(Teich) 32.5 ml EF(Teich) 61.0 % EDV(cubed) 79.6 ml ESV(cubed) 24.6 ml EF(cubed) 69.1 % % IVS thick 14.5 % % LVPW thick 34.1 % LV mass(C)d 129.7 grams LV mass(C)dI 80.0 grams/m\S\2 LV mass(C)s 98.3 grams LV mass(C)sI 60.6 grams/m\S\2 SV(Teich) 50.7 ml SI(Teich) 31.3 ml/m\S\2 SV(cubed) 55.0 ml SI(cubed) 33.9 ml/m\S\2 Ao root diam 2.9 cm Ao root area 6.6 cm\S\2 LA dimension 2.0 cm LA/Ao 0.70 LVOT diam 1.8 cm LVOT area 2.7 cm\S\2 LVAd ap4 19.2 cm\S\2 LVLd ap4 6.2 cm EDV(MOD-sp4) 48.5 ml EDV(sp4-el) 50.7 ml LVAs ap4 12.8 cm\S\2 LVLs ap4 5.5 cm ESV(MOD-sp4) 24.8 ml ESV(sp4-el) 25.3 ml EF(MOD-sp4) 48.9 % EF(sp4-el) 50.1 % LVAd ap2 20.4 cm\S\2 LVLd ap2 6.5 cm EDV(MOD-sp2) 52.2 ml EDV(sp2-el) 54.4 ml LVAs ap2 13.5 cm\S\2 LVLs ap2 5.2 cm ESV(MOD-sp2) 29.1 ml ESV(sp2-el) 29.7 ml EF(MOD-sp2) 44.3 % EF(sp2-el) 45.4 % LVLd %diff 4.8 % EDV(MOD-bp) 50.9 ml LVLs %diff -5.83 % ESV(MOD-bp) 27.5 ml EF(MOD-bp) 45.9 % SV(MOD-sp4) 23.7 ml SI(MOD-sp4) 14.6 ml/m\S\2 SV(MOD-sp2) 23.1 ml SI(MOD-sp2) 14.3 ml/m\S\2 SV(MOD-bp) 23.4 ml SI(MOD-bp) 14.4 ml/m\S\2 SV(sp4-el) 25.4 ml SI(sp4-el) 15.6 ml/m\S\2 SV(sp2-el) 24.7 ml SI(sp2-el) 15.2 ml/m\S\2 Doppler Measurements and Calculations MV E max isa 73.5 cm/sec MV A max isa 61.2 cm/sec MV E/A 1.2 MV P1/2t max isa 89.5 cm/sec MV P1/2t 56.9 msec MVA(P1/2t) 3.9 cm\S\2 MV dec slope 460.9 cm/sec\S\2 MV dec time 0.12 sec Ao V2 max 73.8 cm/sec Ao max PG 2.2 mmHg Ao max PG (full) 0.98 mmHg DEREK(V,A) 2.0 cm\S\2 DEREK(V,D) 2.0 cm\S\2 LV V1 max PG 1.2 mmHg LV V1 max 54.8 cm/sec PA V2 max 74.7 cm/sec PA max PG 2.2 mmHg TR max isa 251.3 cm/sec
[2016-07-08] MEDS ORDERED: ASPCH81 PO (10:42)
[2016-07-08] MEDS: TRAMADOL HCL 50 MG TAB PO PRN (10:59)
[2016-07-08] MEDS: D5W AND 1/2NSS 1,000 ML IV SCH (12:09)
[2016-07-08 12:19] VITALS: BP 92/54; PULSE 86; TEMP 37.2; O2SAT 96
--- NOTE | 2016-07-08 13:06 | DOBUTAMINE ECHO ---
*NOTICE TO RECEIVING LIBERTARIAN AGENCY This information is strictly Confidential and protected under [place] law. [place] law prohibits you from making any further disclosure of this information unless further disclosure is expressly permitted by the written consent of the person to whom it pertains or is authorized by law. A general authorization for the release of medical or other information is not sufficient for this purpose. Hospital accepts no responsibility if the information is made available to any other person, INCLUDING THE PATIENT. Interpretation Summary * Name: CLEO RODGERS Study Date: 07/08/2016 09:35 AM BP: 139/89 mmHg * Patient Location: C.2T\S\S243\S\1 HR: 67 * : 1970 (M/d/yyyy) Gender: Female Height: 62 in * Age: 45 yrs Ethnicity: CA Weight: 136 lb * Ordering Physician: Enrique Johnston * Referring Physician: Self, Referred * Performed By: Janette Funez RCS * * Reason For Study: CHEST PAIN * BSA: 1.6 m2 * -- Conclusions -- * Negative dobutamine stress echocardiogram at 90% maximum predicted heart rate. * No dobutamine induced chest pain. * No significant ECG changes. * Baseline echocardiogram notes normal left ventricular systolic function. Procedure Details * DOBUTAMINE ECHO, CPT#30977 Left Ventricle * Resting wall motion: Normal. Stress wall motion: Appropriate increase in Left ventricular systolic function and decrease in cavity size. No stress induced segmental wall motion abnormalities. * Of note, parasternal images equivocal, however, apical images note increased systolic function. Stress Parameters * The baseline ECG displays normal sinus rhythm. * Stress ECG: No significant ST changes. * Rest heart rate was '67' BPM. * Rest blood pressure was '139/89' * Maximum heart rate achieved was 157 bpm. * Maximum heart rate was 90 % of maximum age-predicted heart rate. * Maximum blood pressure was '195/115' * Maximum Dobutamine infusion rate was '30' mcg/kg/min. * A total of 1 mg of intravenous Atropine was used to supplement Dobutamine for heart rate response. * Dobutamine infusion was terminated due to achieving target heart rate * A total of 15 mg of IV Metoprolol was administered to reverse Dobutamine-induced tachycardia. * The patient exhibited headache during the drug infusion.
[2016-07-08 13:51] VITALS: BP 92/54; PULSE 86; TEMP 37.2; O2SAT 96
--- NOTE | 2016-07-08 13:58 | Discharge Instructions ---
Discharge Instructions Admission Reason for Admission: Precordial Chest Pain Discharge Discharge Diagnosis / Problem: Chest Pain Discharge Goals Goal(s): Decrease discomfort, Diagnostic testing, Therapeutic intervention Activity Recommendations Activity Limitations: resume your previous activity (as tolerated) . Instructions / Follow-Up Instructions / Follow-Up You were admitted to the hospital with chest pain that occurred after some physical activity. You did have some ischemic changes in your EKG, however these were only transient and did resolve on their own. A cardiac work up was done which included an echocardiogram (ultrasound of the heart), a stress test, cardiac monitoring, and serial cardiac enzymes. Your cardiac enzymes, which are chemicals that are released into your blood when your heart is damaged or has a lack of oxygen/blood supply, were all negative x 4 sets. Your echocardiogram and stress test were normal. Cardiac monitoring did not show any arrhythmias. A fasting cholesterol panel did show that your cholesterol is high. Your total cholesterol was elevated at 224, your LDL cholesterol (bad cholesterol) was elevated at 138, and your triglycerides were elevated at 213. Your HDL (good cholesterol) was normal at 43. Please follow up with your primary care provider regarding your cholesterol, and consider making diet/ lifestyle changes to improve this. You are also strongly encouraged to stop smoking, as this increases your risk for heart attack and stroke, among other health risks. If you are ready to quit , you can talk with your primary care provider to discuss options to help you quit. Medications: You may resume your home medications as previously prescribed. Follow up: Please follow up with your primary care provider in 1 week regarding your hospital stay and also to address your high cholesterol, as this increases your risk for cardiovascular disease. Please seek medical attention if you experience lightheadedness, loss of consciousness, chest pain, shortness of breath, nausea, vomiting, numbness or tingling. Current Hospital Diet Patient's current hospital diet: AHA Diet (Heart Healthy) Discharge Diet Recommended Diet: AHA Diet (Heart Healthy) Procedures Procedures Performed: Echocardiogram, dobutamine stress test Pending Studies Studies pending at discharge: no Laboratory Results Lipid Panel Test 07/08/16 06:40 Range/Units Triglycerides Level 213 H 0-150 mg/dl Cholesterol Level 224 H 0-200 mg/dl HDL Cholesterol 43 mg/dl Cholesterol/HDL Ratio 5.2 LDL Cholesterol, Calculated 138 mg/dl Medical Emergencies . Who to Call and When: Medical Emergencies: If at any time you feel your situation is an emergency, please call 911 immediately. . Non-Emergent Contact Non-Emergency issues call your: Primary Care Provider Call Non-Emergent contact if: your pain is worsening, your pain is concerning you, you have any medication questions . Past History Medical & Surgical History: (1) Substernal chest pain (2) Abnormal EKG . "Provider Documentation" section prepared by Yu Neal. VTE Core Measure Inpt VTE Proph given/why not?: SCD's
--- NOTE | 2016-07-08 14:14 | Discharge Summary ---
Discharge Summary Admission Date: Jul 06, 2016 at 16:12 Discharge Date: Jul 08, 2016 Discharge Disposition: Home Principal Diagnosis: Chest pain Procedures: ECHOCARDIOGRAM REPORT [place], [place] Patient: CLEO RODGERS Admit Date: 07/06/1701/04/17 [facility] Rec: [id number] Location: [facility] ID: [id number] Room/Bed: [facility] Date: 1970 Sex: F Report #: [id number] Age: 45 Test: Fam Phy: Malu Argueta, C.R.N.P Inspector Outside Steam Distribution: Att Phy: Maxx Schumacher D.O. Diagnosis: PRECORDIAL CHEST PAIN Luciana Phy: Malu Argueta C.R.N.P Admit Phy: Micah Dominguez M.D. Interpreting Phy: Jason Cantu M.D. Ordering Phy: CC: Maxx Schumacher D.O. Zoda, Albert R M.D. Endcc: [~ rep ct labl] Page 5 p: [~ rep prt dt last] [~ rep prt tm last] ECHOCARDIOGRAM REPORT [place] Patient: CLEO RODGERS Admit Date: 07/06/1701/04/17 Med Rec: [id number] Location: [place] ID: [id number] Room/Bed: [facility] Date: 1970 Sex: F Report #: [id number] Age: 45 Test: Fam Phy: Malu Argueta, C.R.N.P Inspector Outside [employer] Distribution: Att Phy: Maxx Schumacher D.O. Diagnosis: PRECORDIAL CHEST PAIN Luciana Phy: Malu Argueta C.R.N.P Admit Phy: Micah Dominguez M.D. Interpreting Phy: Jason Cantu M.D. Ordering Phy: CC: Maxx Schumacher D.O. Zoda, Albert R M.D. Endcc: [~ rep ct labl] Page 1 of 5 p: [~ rep prt dt last] [~ rep prt tm last] *NOTICE TO RECEIVING CONSTITUTION PARTY AGENCY This information is strictly Confidential and protected under [place] law. [place] law prohibits you from making any further disclosure of this information unless further disclosure is expressly permitted by the written consent of the person to whom it pertains or is authorized by law. A general authorization for the release of medical or other information is not sufficient for this purpose. Hospital accepts no responsibility if the information is made available to any other person, INCLUDING THE PATIENT. Interpretation Summary * Name: CLEO RODGERS Study Date: 07/07/2016 06:25 AM BP: 103/70 mmHg * Patient Location: C.2T\S\S243\S\1 HR: 76 * : 1970 (M/d/yyyy) Gender: Female Height: 62 in * Age: 45 yrs Ethnicity: [place] Weight: 136 lb * Ordering Physician: Micah Dominguez * Referring Physician: Self, Referred * Performed By: Karoline West RCS * * Reason For Study: CHEST PAIN * BSA: 1.6 m2 * Normal biventricular systolic function. * Normal chamber dimensions. * Trace mitral and tricuspid regurgitation. Procedure Details * A complete two-dimensional transthoracic echocardiogram was performed (2D, M- mode, Doppler and color flow Doppler). Left Ventricle * The left ventricle is normal in size. * There is normal left ventricular wall thickness. * Ejection Fraction = 55-60%. * Left ventricular systolic function is normal. * The left ventricular wall motion is normal. Right Ventricle * The right ventricle is normal in size and function. Atria * The left atrial size is normal. * Right atrial size is normal. * No ASD detected; PFO is not assessed. Mitral Valve * The mitral valve is normal. * There is no mitral valve stenosis. * There is trace mitral regurgitation. Tricuspid Valve * The tricuspid valve is normal. * There is no tricuspid stenosis. * There is trace tricuspid regurgitation. Aortic Valve * The aortic valve is trileaflet. * The aortic valve opens well. * Aortic stenosis is absent. * No aortic regurgitation is present. Pulmonic Valve * The pulmonic valve is not well visualized. * There is no pulmonic valvular stenosis. * There is no pulmonic valvular regurgitation. Great Vessels * The aortic root is normal size. Pericardium/Pleural * There is no pericardial effusion. Great Vessels * Normal inferior vena cava diameter and respiratory variation suggests normal central venous pressure. MMode 2D Measurements and Calculations IVSd 10 cm IVSs 1.1 cm LVIDd 4.3 cm LVIDs 2.9 cm LVPWd 0.87 cm LVPWs 1.2 cm IVS/LVPW 1.1 FS 32.4 % EDV(Teich) 83.2 ml ESV(Teich) 32.5 ml EF(Teich) 61.0 % EDV(cubed) 79.6 ml ESV(cubed) 24.6 ml EF(cubed) 69.1 % % IVS thick 14.5 % % LVPW thick 34.1 % LV mass(C)d 129.7 grams LV mass(C)dI 80.0 grams/m\S\2 LV mass(C)s 98.3 grams LV mass(C)sI 60.6 grams/m\S\2 SV(Teich) 50.7 ml SI(Teich) 31.3 ml/m\S\2 SV(cubed) 55.0 ml SI(cubed) 33.9 ml/m\S\2 Ao root diam 2.9 cm Ao root area 6.6 cm\S\2 LA dimension 2.0 cm LA/Ao 0.70 LVOT diam 1.8 cm LVOT area 2.7 cm\S\2 LVAd ap4 19.2 cm\S\2 LVLd ap4 6.2 cm EDV(MOD-sp4) 48.5 ml EDV(sp4-el) 50.7 ml LVAs ap4 12.8 cm\S\2 LVLs ap4 5.5 cm ESV(MOD-sp4) 24.8 ml ESV(sp4-el) 25.3 ml EF(MOD-sp4) 48.9 % EF(sp4-el) 50.1 % LVAd ap2 20.4 cm\S\2 LVLd ap2 6.5 cm EDV(MOD-sp2) 52.2 ml EDV(sp2-el) 54.4 ml LVAs ap2 13.5 cm\S\2 LVLs ap2 5.2 cm ESV(MOD-sp2) 29.1 ml ESV(sp2-el) 29.7 ml EF(MOD-sp2) 44.3 % EF(sp2-el) 45.4 % LVLd %diff 4.8 % EDV(MOD-bp) 50.9 ml LVLs %diff -5.83 % ESV(MOD-bp) 27.5 ml EF(MOD-bp) 45.9 % SV(MOD-sp4) 23.7 ml SI(MOD-sp4) 14.6 ml/m\S\2 SV(MOD-sp2) 23.1 ml SI(MOD-sp2) 14.3 ml/m\S\2 SV(MOD-bp) 23.4 ml SI(MOD-bp) 14.4 ml/m\S\2 SV(sp4-el) 25.4 ml SI(sp4-el) 15.6 ml/m\S\2 SV(sp2-el) 24.7 ml SI(sp2-el) 15.2 ml/m\S\2 Doppler Measurements and Calculations MV E max isa 73.5 cm/sec MV A max isa 61.2 cm/sec MV E/A 1.2 MV P1/2t max isa 89.5 cm/sec MV P1/2t 56.9 msec MVA(P1/2t) 3.9 cm\S\2 MV dec slope 460.9 cm/sec\S\2 MV dec time 0.12 sec Ao V2 max 73.8 cm/sec Ao max PG 2.2 mmHg Ao max PG (full) 0.98 mmHg DEREK(V,A) 2.0 cm\S\2 DEREK(V,D) 2.0 cm\S\2 LV V1 max PG 1.2 mmHg LV V1 max 54.8 cm/sec PA V2 max 74.7 cm/sec PA max PG 2.2 mmHg TR max isa 251.3 cm/sec Created: Initialized: 07/08/16; 0941 <Electronically signed by Jason Cantu M.D.> Signed: 07/08/16 1321 Jason Cantu M.D. The status of this report is Signed. Draft = Not yet reviewed or approved by Calendering Supervisor. Signed = Reviewed and approved by Calendering Supervisor. DOBUTAMINE ECHO [place] Patient: CLEO RODGERS Admit Date: 07/06/1701/04/17 Med Rec: [id number] Location: [facility] ID: [id number] Room/Bed: [facility] Date: 1970 Sex: F Report #: [id number] Age: 45 Test: Fam Phy: Malu Argueta, C.R.N.P Inspector Outside [employer] Distribution: Att Phy: Maxx Schumacher D.O. Diagnosis: PRECORDIAL CHEST PAIN Luciana Phy: Malu Argueta C.R.N.P Admit Phy: Micah Dominguez M.D. Interpreting Phy: Eloy Rivera M.D. Ordering Phy: CC: Maxx Schumacher D.O. Eaton, Jeffrey G., M.D. Endcc: [~ rep ct labl] Page 2 of 2 p: [~ rep prt dt last] [~ rep prt tm last] DOBUTAMINE ECHO [place] Patient: CLEO RODGERS Admit Date: 07/06/1701/04/17 Med Rec: [id number] Location: [facility] ID: [id number] Room/Bed: [facility] Date: 1970 Sex: F Report #: [id number] Age: 45 Test: Fam Phy: Malu Argueta, C.R.N.P Inspector Outside Steam Distribution: Att Phy: Maxx Schumacher D.O. Diagnosis: PRECORDIAL CHEST PAIN Luciana Phy: Malu Argueta C.R.N.P Admit Phy: Micah Dominguez M.D. Interpreting Phy: Eloy Rivera M.D. Ordering Phy: CC: Maxx Schumacher D.O. Eaton, Jeffrey G., M.D. Endcc: [~ rep ct labl] Page 1 of 2 p: [~ rep prt dt last] [~ rep prt tm last] *NOTICE TO RECEIVING CONSTITUTION PARTY AGENCY This information is strictly Confidential and protected under [place] law. [place] law prohibits you from making any further disclosure of this information unless further disclosure is expressly permitted by the written consent of the person to whom it pertains or is authorized by law. A general authorization for the release of medical or other information is not sufficient for this purpose. Hospital accepts no responsibility if the information is made available to any other person, INCLUDING THE PATIENT. Interpretation Summary * Name: CLEO RODGERS Study Date: 07/08/2016 09:35 AM BP: 139/89 mmHg * Patient Location: .2T\S\S243\S\1 HR: 67 * : 1970 (M/d/yyyy) Gender: Female Height: 62 in * Age: 45 yrs Ethnicity: [place] Weight: 136 lb * Ordering Physician: Enrique Johnston * Referring Physician: Self, Referred * Performed By: Janette Funez RCS * * Reason For Study: CHEST PAIN * BSA: 1.6 m2 * -- Conclusions -- * Negative dobutamine stress echocardiogram at 90% maximum predicted heart rate. * No dobutamine induced chest pain. * No significant ECG changes. * Baseline echocardiogram notes normal left ventricular systolic function. Procedure Details * DOBUTAMINE ECHO, CPT#52280 Left Ventricle * Resting wall motion: Normal. Stress wall motion: Appropriate increase in Left ventricular systolic function and decrease in cavity size. No stress induced segmental wall motion abnormalities. * Of note, parasternal images equivocal, however, apical images note increased systolic function. Stress Parameters * The baseline ECG displays normal sinus rhythm. * Stress ECG: No significant ST changes. * Rest heart rate was '67' BPM. * Rest blood pressure was '139/89' * Maximum heart rate achieved was 157 bpm. * Maximum heart rate was 90 % of maximum age-predicted heart rate. * Maximum blood pressure was '195/115' * Maximum Dobutamine infusion rate was '30' mcg/kg/min. * A total of 1 mg of intravenous Atropine was used to supplement Dobutamine for heart rate response. * Dobutamine infusion was terminated due to achieving target heart rate * A total of 15 mg of IV Metoprolol was administered to reverse Dobutamine- induced tachycardia. * The patient exhibited headache during the drug infusion. Created: Initialized: 07/08/16; 1306 <Electronically signed by Eloy Rivera M.D.> Signed: 07/08/16 1352 Eloy Rivera M.D. The status of this report is Signed. Draft = Not yet reviewed or approved by Calendering Supervisor. Signed = Reviewed and approved by Calendering Supervisor. (Yu Neal ., SANDEEP) Medication Reconciliation Continued Medications: Aripiprazole (Abilify) 10 Mg Tab 10 MG PO QPM, TAB 2 Refills Bupropion (Wellbutrin) 100 Mg Tab 100 MG PO QAM, TAB Clonazepam (Clonazepam) 1 Mg Tab 1 MG PO DAILY Ibuprofen (Motrin) 600 Mg Tab 600 MG PO Q6H PRN for Pain, TAB Sertraline (Zoloft) 100 Mg Tab 100 MG PO QAM, TAB Trazodone Hcl (Trazodone) 50 Mg Tab 50 MG PO HS, TAB Discharge Exam Patient reports feeling well. She denies any chest pain since prior to arrival to the hospital. She does admit to a non-productive cough. The patient denies fevers, chills, sweats, chest pain, palpitations, claudication, wheezing, shortness of breath, nausea, vomiting, abdominal pain, dysuria, hematuria, urinary retention, paralysis, weakness, numbness and tingling. Review of Systems: Constitutional: No chills, No fever, No sweats Eyes: No diplopia, No eye pain, No worsening of vision ENT: No hearing loss, No sore throat, No trouble swallowing Respiratory: + cough (non-productive cough), No shortness of breath, No wheezing Cardiovascular: No chest pain, No claudication, No palpitations Abdomen: No nausea, No pain, No vomiting Musculoskeletal: + joint pain (back pain, chronic), No calf pain, No muscle pain Genitourinary - Female: No dysuria, No hematuria, No urinary retention Neurologic: No numbness/tingling, No paralysis, No weakness Integumentary: No color change, No itch, No rash Physical Exam: General Appearance: WD/WN, no apparent distress Eyes: normal inspection, PERRL, EOMI ENT: normal ENT inspection, hearing grossly normal, pharynx normal Neck: supple, no JVD, trachea midline Respiratory/Chest: lungs clear, normal breath sounds, no respiratory distress Cardiovascular: regular rate, rhythm, no gallop, no murmur Abdomen / GI: normal bowel sounds, non tender, soft Extremities: normal inspection, no calf tenderness, no pedal edema Neurologic/Psychiatric: alert, normal mood/affect, oriented x 3 Skin: normal color, warm/dry, no rash (Yu Neal ., PA-C) Hospital Course 45 y/o female with a history of depression, hypothyroidism, chronic back pain, and lumbar HNP who presented to the ED with chest pain, lightheadedness, and shortness of breath while walking. She did have ischemic changes in inferior and lateral leads on EKG, however these were transient and resolved on their own. CXR showed no acute disease. Chest pain--no previous h/o cardiovascular disease but does smoke and has high cholesterol -Admitted to telemetry for observation -Cardiac monitoring showed no arrhythmias -Cardiac enzymes negative x 4 -Fasting lipid panel shows total cholesterol of 224, LDL of 138, HDL of 43 and triglycerides at 213 -Repeat EKG in am normal, no recurrence of ischemic changes -Echocardiogram normal w/trace mitral and tricuspid regurgitation -Stress echo normal, no ischemia H/o hypothyroidism--currently not on medications for this -TSH WNL Schizoaffective d/o, depression -Continue Abilify 10 mg PO qpm, Wellbutrin 100 mg PO qam, clonazepam 1 mg PO qd , Zoloft 100 mg PO qam and trazodone 50 mg PO qhs DVT prophylaxis -Enoxaparin 40 mg SC q24h -MONTSERRAT cherry and SCDs Code Status -Level I, FULL RESUSCITATION STATUS Dispo -Cardiac workup negative, pt medically stable to be discharged home. Will need to f/u with PCP regarding cholesterol. Encouraged to quit smoking. Total Time Spent: Greater than 30 minutes This includes examination of the patient, discharge planning, medication reconciliation, and communication with other providers. (Yu Neal ., PA-C) I agree with PA assessment and plan Pt resting comfortably in bed Denies any further chest pain VSS Labs reviewed Stress ECHO neg OK for discharge home, chest pain unlikely cardiac in nature (Maxx Schumacher D.O.) Discharge Instructions Please refer to the electronic Patient Visit Report (Discharge Instructions) for additional information. (Yu Neal ., PA-C) Additional Copies To Malu Argueta C.R.N.P
[2016-09-26] MEDS ORDERED: TRAZ1TAB16 PO (04:37)
[2016-09-27] MEDS ORDERED: FOLATAB PO (15:42)
[2016-09-27] MEDS ORDERED: ATV/1 PO (15:42)
[2016-09-27] MEDS ORDERED: NCDT21 TD (15:42)
== END 2016-07-08 14:25 | disposition home or self-care (01) ==
LOC: ENRESERVTM → ENRESERVDT → C.EDB 13:55 → C.2T 16:12
PROVIDERS: ADMIT Hospitalist; ATTEND Hospitalist
DX: R07.2 Precordial pain (principal); F32.9 Major depressive disorder, single episode, unspecified; E78.00 Pure hypercholesterolemia, unspecified; E03.9 Hypothyroidism, unspecified; M54.9 Dorsalgia, unspecified; G89.29 Other chronic pain; M51.26 Other intervertebral disc displacement, lumbar region; F25.1 Schizoaffective disorder, depressive type; F17.200 Nicotine dependence, unspecified, uncomplicated; Z88.0 Allergy status to penicillin; Z82.49 Family history of ischemic heart disease and other diseases of the circulatory system; Z83.6 Family history of other diseases of the respiratory system

== ENCOUNTER 2016-08-07 09:52 | Emergency (ER) | payer OTHER ==
[~2016-08-07] VITALS: Ht 157.5 cm; Wt 64.0 kg
[~2016-08-07 09:52] MED LIST changes: -OXYC1TAB3 PO
[2016-08-07 09:57] VITALS: TEMP 36.6; O2SAT 97; Ht 157.5 cm; Wt 64.0 kg
[2016-08-07] MEDS ORDERED: PROP10TA7 PO (10:02)
[2016-08-07] MEDS ORDERED: ASPI-435 PO (10:02)
--- NOTE | 2016-08-07 10:14 | EMERGENCY ROOM VISIT NOTE ---
History Report prepared by Oren: Vikas Bourgeois Under the Supervision of: Dr. Alex Marie M.D. First contact with patient: 09:58 Chief Complaint: CARBON MONOXIDE EXPOSURE Stated Complaint: EXPOSURE History of Present Illness The patient is a 45 year old female who presents to the Emergency Room with complaints of an episode of carbon monoxide exposure that occurred prior to arrival this morning. The patient's was brought here earlier and was found to have carbon monoxide poisoning. It was found that there was a potential problem with the heating in their house, and the fire department came out to check the house. It was recommended that the patient come here just in case her carbon monoxide level was up. Currently, the patient complains of a bit of a headache, but she denies any other problems. Source of History: patient Onset: Prior to arrival this morning Position: other (global - carbon monoxide exposure) Timing: other (episode) Associated Symptoms: + headache Note: Associated symptoms: Denies any other problems other than the headache. Review of Systems See HPI for pertinent positives & negatives. A total of 10 systems reviewed and were otherwise negative. Past Medical & Surgical Medical Problems: (1) Acute exacerbation of chronic low back pain (2) Dehydration (3) Depression (4) HNP (herniated nucleus pulposus), lumbar (5) Hypothyroidism (6) Pain of right lower leg (7) Pain of right lower leg (8) Precordial chest pain (9) Renal insufficiency (10) Spasm of back muscles (11) Suicide attempt Surgical Problems: (1) History of - tubal ligation (2) Hx of decompressive lumbar laminectomy Family History Cancer Hypertension Lung disease Social History Smoking Status: Current Every Day Smoker Alcohol Use: none Marital Status: Housing Status: lives with family Occupation Status: employed Current/Historical Medications Scheduled Aripiprazole (Abilify), 10 MG PO QPM Aspirin (Aspirin 81), 81 MG PO DAILY Bupropion (Wellbutrin), 300 MG PO QAM Clonazepam (Clonazepam), 1 MG PO DAILY Propranolol (Inderal), 10 MG PO BID Sertraline (Zoloft), 100 MG PO QAM Trazodone Hcl (Trazodone), 50 MG PO HS Scheduled PRN Ibuprofen (Motrin), 600 MG PO Q6H PRN for Pain Allergies Coded Allergies: Penicillins (Verified Allergy, Intermediate, RASH/HIVES, 08/07/16) Ketorolac Tromethamine (Unverified Adverse Reaction, Unknown, "SWEATS AND VOMITING", 08/07/16) Physical Exam Vital Signs Date Time Temp Pulse Resp B/P Pulse Ox O2 Delivery O2 Flow Rate FiO2 08/07/16 11:01 95 112/83 94 08/07/16 10:02 Non-Rebreather 15.0 08/07/16 09:57 36.6 93 18 123/88 97 Room Air 08/07/16 09:57 97 Room Air Physical Exam GENERAL: Patient is in no acute distress. HEENT: No acute trauma, normocephalic atraumatic, mucous membranes moist, no nasal congestion, no scleral icterus. NECK: No stridor, no adenopathy, no meningismus, trachea is midline. LUNGS: Clear to auscultation bilaterally, no wheeze, no rhonchi, breath sounds equal. HEART: Without murmurs gallops or rubs, regular rate and rhythm. ABDOMEN: Soft, nontender, bowel sounds positive, no hernias, no peritonitis. EXTREMITIES: No cyanosis or edema, full range of motion of all the joints without pain or difficulty, no signs for acute trauma. NEUROLOGIC: Oriented x 3, no acute motor or sensory deficits, no focal weakness. SKIN: No rash, no jaundice, no diaphoresis. Medical Decision & Procedures Laboratory Results Test 08/07/16 10:10 Carboxyhemoglobin 6.9 % [facility] Laboratory results reviewed by me. ED Course 1003: The patient was evaluated in room B2. A complete history and physical exam was performed. 1045: Reevaluated the patient. Discussed results and discharge instructions: She verbalized understanding and agreement. The patient is ready for discharge. Medical Decision Differential diagnosis includes but is not limited to carbon monoxide exposure, anxiety, tension headache, migraine headache. Patient presents with a carbon monoxide exposure. She arrived and was placed on 100% facemask oxygen. A carbon monoxide level was drawn and returned normal. The patient was reassured. Her who did have an elevation to his carbon monoxide level has already looked into having the house thoroughly checked by a heating specialist. The fire department has been to the house today. Impression Primary Impression: Exposure to carbon monoxide Scribe Attestation The scribe's documentation has been prepared under my direction and personally reviewed by me in its entirety. I confirm that the note above accurately reflects all work, treatment, procedures, and medical decision making performed by me. Departure Information Dispostion Home / Self-Care Referrals Malu Argueta C.R.N.P (PCP) Forms HOME CARE DOCUMENTATION FORM, IMPORTANT VISIT INFORMATION Patient Instructions My [facility] Additional Instructions return with any concerns be sure the house is safe and free of carbon monoxide
[2016-08-07 11:01] VITALS: BP 112/83; PULSE 95; O2SAT 94
[2016-09-26] MEDS ORDERED: TRAZ1TAB16 PO (04:37)
[2016-09-27] MEDS ORDERED: FOLATAB PO (15:42)
[2016-09-27] MEDS ORDERED: ATV/1 PO (15:42)
[2016-09-27] MEDS ORDERED: NCDT21 TD (15:42)
== END 2016-08-07 11:02 | disposition home or self-care (01) ==
LOC: C.EDB 09:54
DX: T58.91XA Toxic effect of carbon monoxide from unspecified source, accidental (unintentional), initial encounter (principal); F17.200 Nicotine dependence, unspecified, uncomplicated; G89.29 Other chronic pain; F32.9 Major depressive disorder, single episode, unspecified; E03.9 Hypothyroidism, unspecified; Z98.51 Tubal ligation status

== ENCOUNTER → 2016-09-03 | Outpatient (CLI) | payer OTHER ==
[~2016-09-03] MED LIST changes: +ASPI-435 PO; +ATV/1 PO; +BUPRTAB51 PO; +CLON0.5T3 PO; +CLON2TAB3 PO; +FOLATAB PO; +IBUP-1450 PO; +NCDT21 TD; +PROP10TA7 PO; +PROP20TA67 PO; +TRAZ-119 PO; +VORT10TA12 PO
[2016-09-03 18:08] LABS: LYME DISEASE AB IGG NEG (NEG); LYME DISEASE AB IGM NEG (NEG)
== END | disposition home or self-care (01) ==
LOC: C.LABPVFM 14:46
PROVIDERS: ATTEND Nurse Practitioner
DX: R41.3 Other amnesia (principal)

== ENCOUNTER 2016-09-26 00:38 | Observation (INO) | payer OTHER ==
[2016-09-26] VITALS (9 sets, daily range): BP systolic 109–128; BP diastolic 72–85; PULSE 76–96; TEMP 36.4–37.1; O2SAT 93–100; Ht 160 cm; Wt 72.3 kg
[~2016-09-26] VITALS: Ht 160 cm; Wt 72.3 kg
[~2016-09-26 00:38] MED LIST changes: -ATV/1 PO; -BUPRTAB51 PO; -CLON0.5T3 PO; -CLON2TAB3 PO; -FOLATAB PO; -IBUP-1450 PO; -NCDT21 TD; -PROP20TA67 PO; -TRAZ-119 PO; -VORT10TA12 PO
--- NOTE | 2016-09-26 01:20 | EMERGENCY ROOM VISIT NOTE ---
History Report prepared by Julianibantonina: Shar Philip Under the Supervision of: Dr. Naif Merino D.O. First contact with patient: 01:01 Chief Complaint: OVERDOSE (INTENTIONAL) Stated Complaint: OVERDOSE History of Present Illness The patient is a 45 year old female who presents to the Emergency Room with complaints of an acute overdose that occurred sometime prior to arrival. Per nursing staff, the patient told EMS that she took 10 Klonopin a drank 6-10 beers. The patient then told nursing staff that she had 5 Klonopin. The patient recently had the prescription filled, and EMS noted that she had 38 pills missing. The patient has a history of depression. She denied suicidal or homicidal ideations. The patient told EMS that she took the Klonopin to "Chill out." The patient was unresponsive on exam. History is limited secondary to poor cooperation. 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 Past Medical & Surgical Medical Problems: (1) Acute exacerbation of chronic low back pain (2) Benzodiazepine overdose (3) Dehydration (4) Depression (5) HNP (herniated nucleus pulposus), lumbar (6) Hypothyroidism (7) Pain of right lower leg (8) Pain of right lower leg (9) Precordial chest pain (10) Renal insufficiency (11) Spasm of back muscles (12) Suicide attempt Surgical Problems: (1) History of - tubal ligation (2) Hx of decompressive lumbar laminectomy Family History Cancer Hypertension Lung disease Social History Smoking Status: Former Smoker Alcohol Use: none Marital Status: Housing Status: lives with family Occupation Status: employed Current/Historical Medications Scheduled Aripiprazole (Abilify), 1 TAB PO DAILY Bupropion (Wellbutrin-Xl), 300 MG PO QAM Clonazepam (Klonopin), 2 MG PO QAM Clonazepam (Klonopin), 4 MG PO HS Sertraline (Zoloft), 150 MG PO DAILY Vortioxetine HBr (Trintellix), 10 MG PO DAILY Scheduled PRN Clonazepam (Klonopin), 0.5-1 TAB PO TID PRN for Anxiety Ibuprofen (Motrin), 600 MG PO BID PRN for Pain Propranolol (Inderal), 20 MG PO BID PRN for Anxiety Trazodone Hcl (Desyrel), 50-100 MG PO HS PRN for Sleep Allergies Coded Allergies: Penicillins (Verified Allergy, Intermediate, RASH/HIVES, 08/07/16) Ketorolac Tromethamine (Unverified Adverse Reaction, Unknown, "SWEATS AND VOMITING", 08/07/16) Physical Exam Vital Signs Date Time Temp Pulse Resp B/P Pulse Ox O2 Delivery O2 Flow Rate FiO2 09/26/16 04:09 81 12 88/67 95 Room Air 09/26/16 01:28 92 Room Air 09/26/16 00:55 96 09/26/16 00:51 36.7 92 12 90/65 94 Room Air 09/26/16 00:51 94 Room Air Physical Exam GENERAL: Uncooperative, wakens to sternal rub. HENT: Normocephalic, atraumatic. Oropharynx unremarkable. EYES: Normal conjunctiva. Sclera non-icteric. NECK: Supple. No nuchal rigidity. FROM. No JVD. RESPIRATORY: Clear to auscultation. CARDIAC: Regular rate, normal rhythm. Extremities warm and well perfused. Pulses equal. ABDOMEN: Soft, non-distended. No tenderness to palpation. No rebound or guarding. No masses. RECTAL: Deferred. MUSCULOSKELETAL: Chest examination reveals no tenderness. The back is symmetrical on inspection without obvious abnormality. There is no CVA tenderness to palpation. No joint edema. LOWER EXTREMITIES: Calves are equal size bilaterally and non-tender. No edema. No discoloration. NEURO: Normal sensorium. No sensory or motor deficits noted. SKIN: No rash or jaundice noted. Medical Decision & Procedures Laboratory Results 09/26/16 01:00 Red Blood Count 4.58, Mean Corpuscular Volume 89.7, Mean Corpuscular Hemoglobin 29.7, Mean Corpuscular Hemoglobin Concent 33.1, Mean Platelet Volume 9.1, Neutrophils (%) (Auto) 62.0, Lymphocytes (%) (Auto) 30.9, Monocytes (%) (Auto) 4.1, Eosinophils (%) (Auto) 2.6, Basophils (%) (Auto) 0.2, Neutrophils # (Auto) 6.43, Lymphocytes # (Auto) 3.20, Monocytes # (Auto) 0.43, Eosinophils # (Auto) 0.27, Basophils # (Auto) 0.02 09/26/16 01:00 Test 09/26/16 01:00 09/26/16 01:25 09/26/16 01:29 White Blood Count 10.37 K/uL (4.8-10.8) Red Blood Count 4.58 M/uL (4.2-5.4) Hemoglobin 13.6 g/dL (12.0-16.0) Hematocrit 41.1 % (37-47) Mean Corpuscular Volume 89.7 fL (80-100) Mean Corpuscular Hemoglobin 29.7 pg (25-34) Mean Corpuscular Hemoglobin Concent 33.1 g/dl (32-36) Platelet Count 279 K/uL (130-400) Mean Platelet Volume 9.1 fL (7.4-10.4) Neutrophils (%) (Auto) 62.0 % Lymphocytes (%) (Auto) 30.9 % Monocytes (%) (Auto) 4.1 % Eosinophils (%) (Auto) 2.6 % Basophils (%) (Auto) 0.2 % Neutrophils # (Auto) 6.43 K/uL (1.4-6.5) Lymphocytes # (Auto) 3.20 K/uL (1.2-3.4) Monocytes # (Auto) 0.43 K/uL (0.11-0.59) Eosinophils # (Auto) 0.27 K/uL (0-0.5) Basophils # (Auto) 0.02 K/uL (0-0.2) RDW Standard Deviation 44.9 fL (36.4-46.3) RDW Coefficient of Variation 13.6 % (11.5-14.5) Immature Granulocyte % (Auto) 0.2 % Immature Granulocyte # (Auto) 0.02 K/uL (0.00-0.02) Prothrombin Time 10.8 SECONDS (9.0-12.0) Prothromb Time International Ratio 1.0 (0.9-1.1) Activated Partial Thromboplast Time 28.5 SECONDS (21.0-31.0) Partial Thromboplastin Ratio 1.1 Anion Gap 6.0 mmol/L (3-11) Est Creatinine Clear Calc Drug Dose 72.5 ml/min Estimated GFR () 84.8 Estimated GFR (Non- 73.2 BUN/Creatinine Ratio 9.5 (10-20) Calcium Level 8.8 mg/dl (8.5-10.1) Total Bilirubin 0.2 mg/dl (0.2-1) Direct Bilirubin < 0.1 mg/dl (0-0.2) Aspartate Amino Transf (AST/SGOT) 16 U/L (15-37) Alanine Aminotransferase (ALT/SGPT) 30 U/L (12-78) Alkaline Phosphatase 111 U/L (45-117) Total Creatine Kinase 104 U/L (26-192) Total Protein 7.4 gm/dl (6.4-8.2) Albumin 3.6 gm/dl (3.4-5.0) Lipase 99 U/L (73-393) Salicylates Level 2.6 mg/dl (2.8-20) Acetaminophen Level < 2 ug/ml (10-30) Ethyl Alcohol mg/dL 189.0 mg/dl (0-3) Urine Opiates Screen NEG (NEG) Urine Methadone, Qualitative NEG (NEG) Urine Barbiturates NEG (NEG) Urine Phencyclidine (PCP) Level NEG (NEG) Ur Amphetamine/Methamphetamine NEG (NEG) MDMA (Ecstasy) Screen POS (NEG) Urine Benzodiazepines Screen NEG (NEG) Urine Cocaine Metabolite NEG (NEG) Urine Marijuana (THC) NEG (NEG) Bedside Glucose 92 mg/dl (70-90) Laboratory results reviewed by me Medications Administered Medications (Trade) Dose Ordered Sig/Larisa Route Start Time Stop Time Status Last Admin Dose Admin Sodium Chloride (Nss 1000ml) 1,000 ml @ 999 mls/hr Q1H1M STAT IV 09/26/16 01:23 09/26/16 03:07 DC 09/26/16 01:23 999 MLS/HR ECG Indication: toxicologic Rate (beats per minute): 87 Rhythm: normal sinus Findings: no acute ischemic change, no ectopy ED Course 0105: The patient was evaluated in room A3. A complete history and physical exam was performed. 0123: NSS 1000 ml @ 999 mls/hr. 0430: The patient will be evaluated by Dr. Ba[facility]uelos[facility] Medical Decision Differential diagnosis includes drug overdose, ethanol intoxication, benzodiazepine overdose, depression. Patient is somnolent and difficult to arouse with sternal rub. Patient remained slightly hypotensive blood pressures greater than 80 however and not tachycardic. Unknown the amount of Klonopin the patient overdosed on. Patient will need to be admitted for acute alcohol intoxication and potential overdose. It is difficult to screen this patient currently for a 302 evaluation for psychiatry. Patient will be admitted Impression Primary Impression: Alcohol intoxication Additional Impression: Benzocaine poisoning Scribe Attestation The scribe's documentation has been prepared under my direction and personally reviewed by me in its entirety. I confirm that the note above accurately reflects all work, treatment, procedures, and medical decision making performed by me. Departure Information Dispostion Being Evaluated By Hospitalist Referrals Malu Argueta, C.R.N.P (PCP) Patient Instructions My [facility] Problem Qualifiers Primary Impression: Alcohol intoxication Complication of substance-induced condition: with delirium Qualified Codes: F10.121 - Alcohol abuse with intoxication delirium Additional Impression: Benzocaine poisoning Encounter type: initial encounter Injury intent: undetermined intent Qualified Codes: T41.3X4A - Poisoning by local anesthetics, undetermined, initial encounter
[2016-09-26] MEDS ORDERED: SODIUM CHLORIDE 0.9% 1000ML 1,000 ML IV STA (01:23)
[2016-09-26 01:31] LABS: BASO % 0.2 %; BASO ABS # 0.02 K/uL (0-0.2); COMPLETE YES; EOS % 2.6 %; HEMATOCRIT 41.1 % (37-47); IG% 0.2 %; LYMPH % 30.9 %; MEAN CELL VOLUME 89.7 fL (80-100); MEAN CORPUSCULAR HEMOGLOBIN 29.7 pg (25-34); MEAN CORPUSCULAR HGB CONC 33.1 g/dl (32-36); MEAN PLATELET VOLUME 9.1 fL (7.4-10.4); MONO % 4.1 %; PLATELET COUNT 279 K/uL (130-400); RED BLOOD COUNT 4.58 M/uL (4.2-5.4); WHITE BLOOD COUNT 10.37 K/uL (4.8-10.8)
[2016-09-26 01:43] LABS: ALT/SGPT 30 U/L (12-78); AST/SGOT 16 U/L (15-37); BLOOD UREA NITROGEN 9 mg/dl (7-18); BUN/CREATININE RATIO 9.5 (10-20); CALCIUM 8.8 mg/dl (8.5-10.1); CARBON DIOXIDE 29 mmol/L (21-32); CHLORIDE 106 mmol/L (98-107); CREATININE 0.93 mg/dl (0.60-1.20); GLUCOSE 77 mg/dl (70-99); PARTIAL THROMBOPLASTIN RATIO 1.1; POTASSIUM 3.5 mmol/L (3.5-5.1); PROTHROMBIN TIME (PATIENT) 10.8 SECONDS (9.0-12.0); SODIUM 141 mmol/L (136-145)
[2016-09-26 01:46] LABS: ALKALINE PHOSPHATASE 111 U/L (45-117)
[2016-09-26 01:53] LABS: ACETAMINOPHEN < 2 ug/ml (10-30)
[2016-09-26 02:02] LABS: BENZODIAZEPINE, URINE NEG (NEG); COCAINE,URINE NEG (NEG); PHENCYCLIDINE, URINE NEG (NEG)
[2016-09-26] MEDS ORDERED: ONDANSETRON INJ 2 MG/ML 2 ML VIAL IV PRN (04:30)
[2016-09-26] MEDS ORDERED: ACETAMINOPHEN 325 MG TAB PO PRN (04:30)
[2016-09-26] MEDS ORDERED: POLYETHYLENE (MIRALAX) 17 GM PACK PO PRN (04:30)
[2016-09-26] MEDS ORDERED: MAGNESIUM HYDROXIDE SUSP 30 ML UDC PO PRN (04:30)
[2016-09-26] MEDS ORDERED: ALUMINUM/MAGNESIUM/SIMETH (MAALOX MAX) 30 ML UDC PO PRN (04:30)
[2016-09-26] MEDS ORDERED: VORT10TA12 PO (04:36)
[2016-09-26] MEDS ORDERED: BUPRTAB51 PO (04:36)
[2016-09-26] MEDS ORDERED: IBUP-1450 PO (04:36)
[2016-09-26] MEDS ORDERED: ABL10 PO (04:37)
[2016-09-26] MEDS ORDERED: TRAZ-119 PO (04:37)
[2016-09-26] MEDS ORDERED: SERT-234 PO (04:37)
[2016-09-26] MEDS ORDERED: PROP20TA67 PO (04:37)
[2016-09-26] MEDS ORDERED: CLON2TAB3 PO ×2 (04:38)
[2016-09-26] MEDS ORDERED: CLON0.5T3 PO (04:38)
[2016-09-26] MEDS ORDERED: LORAZEPAM 2 MG/ML 1 ML VIAL IV PRN (04:45)
[2016-09-26] MEDS ORDERED: IV FLUIDS COMPLETED PRN (04:45)
[2016-09-26] MEDS ORDERED: IBUPROFEN 600 MG TAB PO PRN (05:00)
--- NOTE | 2016-09-26 05:22 | History and Physical ---
History & Physical Date & Time of Service: Sep 26, 2016 at 04:57 Chief Complaint: Overdose Primary Care Physician: Malu Argueta C.R.N.P History of Present Illness 45-year-old female who presents with Klonopin and alcohol overdose. Uncertain of any other psychiatric diagnoses, though the patient is noted to be on multiple psychiatric medications. History is limited by the fact the patient is somnolent and cannot provide a cogent history. Per sign out from nursing and review of emergent department notes, the patient took anywhere from 5-10 Klonopin tablets. Currently she gets Klonopin prescribed and was just prescribed one week ago, but now her production bottles empty. She is also noted to have retaken 6-8 beers. Her baseline alcohol intake is unknown. There is no family or friends at the bedside to corroborate a history. Past Medical/Surgical History Medical Problems: (1) Acute exacerbation of chronic low back pain Status: Resolved (2) Dehydration Status: Resolved (3) Depression Status: Resolved (4) HNP (herniated nucleus pulposus), lumbar Status: Resolved (5) Hypothyroidism Status: Resolved (6) Pain of right lower leg Status: Resolved (7) Pain of right lower leg Status: Resolved (8) Renal insufficiency Status: Resolved (9) Spasm of back muscles Status: Resolved (10) Suicide attempt Status: Resolved Surgical Problems: (1) History of - tubal ligation Status: Resolved (2) Hx of decompressive lumbar laminectomy Status: Resolved Family History Cancer Hypertension Lung disease Social History Smoking Status: Former Smoker Smokeless Tobacco Use: Unknown Drug Use: other (unknown) Marital Status: Housing status: lives with family Occupational Status: employed Multi-Drug Resistant Organisms History of MDRO: No Allergies Coded Allergies: Penicillins (Verified Allergy, Intermediate, RASH/HIVES, 08/07/16) Ketorolac Tromethamine (Unverified Adverse Reaction, Unknown, "SWEATS AND VOMITING", 08/07/16) Home Medications Scheduled Aripiprazole (Abilify), 1 TAB PO DAILY Bupropion (Wellbutrin-Xl), 300 MG PO QAM Clonazepam (Klonopin), 2 MG PO QAM Clonazepam (Klonopin), 4 MG PO HS Sertraline (Zoloft), 150 MG PO DAILY Vortioxetine HBr (Trintellix), 10 MG PO DAILY Scheduled PRN Clonazepam (Klonopin), 0.5-1 TAB PO TID PRN for Anxiety Ibuprofen (Motrin), 600 MG PO BID PRN for Pain Propranolol (Inderal), 20 MG PO BID PRN for Anxiety Trazodone Hcl (Desyrel), 50-100 MG PO HS PRN for Sleep Review of Systems Review of systems could not be obtained, due to patient's somnolence and inability to cooperate with history Physical Exam Vital Signs Date Time Temp Pulse Resp B/P Pulse Ox O2 Delivery O2 Flow Rate FiO2 09/26/16 04:09 81 12 88/67 95 Room Air 09/26/16 01:28 92 Room Air 09/26/16 00:55 96 09/26/16 00:51 36.7 92 12 90/65 94 Room Air 09/26/16 00:51 94 Room Air General Appearance: WD/WN, no apparent distress Eyes: PERRL, EOMI ENT: + pertinent finding (no obstruction of the oropharynx) Neck: supple, no adenopathy, no JVD Respiratory/Chest: lungs clear, no respiratory distress Cardiovascular: regular rate, rhythm, no gallop, normal peripheral pulses Abdomen/GI: normal bowel sounds, non tender, soft Back: no CVA tenderness, no muscle spasm Extremities/Musculoskelatal: no calf tenderness, no pedal edema Neurologic/Psych: + pertinent finding (somnolent, arouses to sternal rub. Mumbled speech. Incooperative with history due to altered mental status) Skin: normal color, warm/dry, no rash Lymphatic: no adenopathy Diagnostics Laboratory Results Results Past 24 Hours Test 09/26/16 01:00 09/26/16 01:25 09/26/16 01:29 Range/Units White Blood Count 10.37 4.8-10.8 K/uL Red Blood Count 4.58 4.2-5.4 M/uL Hemoglobin 13.6 12.0-16.0 g/dL Hematocrit 41.1 37-47 % Mean Corpuscular Volume 89.7 80-100 fL Mean Corpuscular Hemoglobin 29.7 25-34 pg Mean Corpuscular Hemoglobin Concent 33.1 32-36 g/dl Platelet Count 279 130-400 K/uL Mean Platelet Volume 9.1 7.4-10.4 fL Neutrophils (%) (Auto) 62.0 % Lymphocytes (%) (Auto) 30.9 % Monocytes (%) (Auto) 4.1 % Eosinophils (%) (Auto) 2.6 % Basophils (%) (Auto) 0.2 % Neutrophils # (Auto) 6.43 1.4-6.5 K/uL Lymphocytes # (Auto) 3.20 1.2-3.4 K/uL Monocytes # (Auto) 0.43 0.11-0.59 K/uL Eosinophils # (Auto) 0.27 0-0.5 K/uL Basophils # (Auto) 0.02 0-0.2 K/uL RDW Standard Deviation 44.9 36.4-46.3 fL RDW Coefficient of Variation 13.6 11.5-14.5 % Immature Granulocyte % (Auto) 0.2 % Immature Granulocyte # (Auto) 0.02 0.00-0.02 K/uL Prothrombin Time 10.8 9.0-12.0 SECONDS Prothromb Time International Ratio 1.0 0.9-1.1 Activated Partial Thromboplast Time 28.5 21.0-31.0 SECONDS Partial Thromboplastin Ratio 1.1 Sodium Level 141 136-145 mmol/L Potassium Level 3.5 3.5-5.1 mmol/L Chloride Level 106 98-107 mmol/L Carbon Dioxide Level 29 21-32 mmol/L Anion Gap 6.0 3-11 mmol/L Blood Urea Nitrogen 9 7-18 mg/dl Creatinine 0.93 0.60-1.20 mg/dl Est Creatinine Clear Calc Drug Dose 72.5 ml/min Estimated GFR () 84.8 Estimated GFR (Non- 73.2 BUN/Creatinine Ratio 9.5 10-20 Random Glucose 77 70-99 mg/dl Calcium Level 8.8 8.5-10.1 mg/dl Total Bilirubin 0.2 0.2-1 mg/dl Direct Bilirubin < 0.1 0-0.2 mg/dl Aspartate Amino Transf (AST/SGOT) 16 15-37 U/L Alanine Aminotransferase (ALT/SGPT) 30 12-78 U/L Alkaline Phosphatase 111 45-117 U/L Total Creatine Kinase 104 26-192 U/L Total Protein 7.4 6.4-8.2 gm/dl Albumin 3.6 3.4-5.0 gm/dl Lipase 99 73-393 U/L Salicylates Level 2.6 2.8-20 mg/dl Acetaminophen Level < 2 10-30 ug/ml Ethyl Alcohol mg/dL 189.0 0-3 mg/dl Urine Opiates Screen NEG NEG Urine Methadone, Qualitative NEG NEG Urine Barbiturates NEG NEG Urine Phencyclidine (PCP) Level NEG NEG Ur Amphetamine/Methamphetamine NEG NEG MDMA (Ecstasy) Screen POS NEG Urine Benzodiazepines Screen NEG NEG Urine Cocaine Metabolite NEG NEG Urine Marijuana (THC) NEG NEG Bedside Glucose 92 70-90 mg/dl EKG Normal sinus rhythm Normal ECG When compared with ECG of 07-JUL-2016 07:08, No significant change was found Impression Assessment and Plan 45 year old female, with alcohol and Klonopin overdose. It is unclear whether any other substances were ingested. Unfortunately given her somnolence day, could not assess for suicidality, and circumstances surrounding which she took alcohol and Klonopin. Currently she is somnolent, but does wake up to sternal rub briefly. She will require admission, for a period of washout of ingested substances. Plan forward for presumed substance abuse disorder to be determined once patient's mental status clears. Our plan for her is as follows: Acute alcohol intoxication - Patient is been aggressively rehydrated with normal saline in the ED - Baseline on his buccal consumption unknown, therefore we'll treat as chronic occult abuse - Banana bag now, and daily during admission - Ativan 0.5 mg every hour as needed for anxiety or agitation Acute benzodiazepine overdose - Patient is mildly hypotensive, but is being aggressively fluid resuscitated Hold propranolol due to hypotension - Respiratory status is intact at this time, there is no compromise of the airway, but given somnolence the patient is at risk for aspiration - No indication to administer flumazenil at this time - keep patient nothing by mouth until improvement in mental status - Hold home Klonopin; patient has Ativan on board when necessary for agitation or withdrawal - Psychiatry to be consultative for assessment of substance abuse Depression - Continue sertraline - Continue Wellbutrin Insomnia - And tinea trazodone when necessary Continue Abilify, diagnosis necessitating Abilify is unclear to me at this time. DVT prophylaxis - SCDs - Lovenox CODE STATUS - Patient unable to verbalize CODE STATUS - Patient is presumed to be level I full code [facility] at this time Resident Physician Supervision Note: Pt seen/examined independently. I discussed the case with the resident and agree with the findings and plan as documented in the note. Any exceptions or clarifications are listed here: 45 y/o F Hx depression stated she initentionally overdose on Klonipin after she became upset with her . Also admits to drinking copious quantities of ETOH. She is difficult to arouse but seems to be oriented and answers questions appropriately during brief waking periods. O/E Somnolent S1,2 R CTA - poor effort NT, ND NO C/C/E P: Assigned to telemetry IVF, ETOH withdrawal protocol, hold all psychoactive meds until she is fully awake Psych consult for suicide risk evaluation Documented By: Deven Bañuelos Level of Care Med/Surg Resuscitation Status FULL RESUSCITATION VTE Prophylaxis VTE Risk Assessment Done? Y/N: Yes Risk Level: Moderate Given or contraindicated: Enoxaparin (Lovenox)SQ
[2016-09-26] MEDS ORDERED: LORAZEPAM INJ 0.5 MG in SYRINGE 0.75 ML IV PRN (08:00)
[2016-09-26] MEDS: TRINTELLIX~ORDER AWAITING ACTION SCH ×2 (08:00→15:57)
[2016-09-26] MEDS: MULTI-VITAMIN INFUSION INJ 10 ML, THIAMINE HCL INJ 100 MG, FoLIC ACID INJ 1 MG in SODIU... IV SCH (08:06)
[2016-09-26] MEDS ORDERED: ARIPIprazole TAB 10 MG TAB PO SCH (09:00)
--- NOTE | 2016-09-26 09:30 | Progress Note ---
Progress Note Date of Service Sep 26, 2016. Progress Note Patient seen and examined. Does not want to talk. SHe reports she was "pissed at my for wanting to come home early from camping." SHe said she took 15 tabs of 0.5mg of Klonopin and drank 1/2 a beer. Declined to answer if the intent was to harm herself, she just replied "I was just pissed." No chest pain, no sob. Denies daily drinking. oriented x3, nad anicteric s1 s2 rrr, no murmurs appreciated ctab no w/r/r abd soft nt/nd +BS no LE edema Awaiting psych consult. Unclear about her meds but reports no new changes to last discharge medication list. DVT ppx with SCD and lovenox. Aspiration precautions.
[2016-09-26] MEDS: SERTRALINE HCL 50 MG TAB PO SCH (09:39)
[2016-09-26] MEDS: BuPROPion XL 300 MG TABCR PO SCH (09:39)
[2016-09-26] MEDS: ENOXAPARIN 40 MG/0.4 ML SYR SQ SCH (09:39)
[2016-09-26 10:15] LABS: CREATININE 0.72 mg/dl (0.60-1.20); POTASSIUM 3.9 mmol/L (3.5-5.1)
[2016-09-26] MEDS: SODIUM CHLORIDE 0.9% 1000ML 1,000 ML IV SCH ×2 (11:53→20:38)
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
[2016-09-26] MEDS: ARIPIprazole TAB 10 MG TAB PO SCH (21:39)
[2016-09-26] MEDS: TRAZODONE HCL 50 MG TAB PO PRN (22:16)
[2016-09-27] VITALS (7 sets, daily range): BP systolic 124–159; BP diastolic 78–93; PULSE 57–78; TEMP 36.6–37; O2SAT 92–96
[2016-09-27 06:05] LABS: BASO % 0.3 %; BASO ABS # 0.03 K/uL (0-0.2); COMPLETE YES; EOS % 3.6 %; HEMATOCRIT 36.9 % (37-47); IG% 0.2 %; LYMPH % 29.9 %; LYMPH ABS # 2.58 K/uL (1.2-3.4); MEAN CELL VOLUME 90.4 fL (80-100); MEAN CORPUSCULAR HEMOGLOBIN 29.4 pg (25-34); MEAN CORPUSCULAR HGB CONC 32.5 g/dl (32-36); MONO % 6.9 %; NEUT % 59.1 %; PLATELET COUNT 245 K/uL (130-400); RED BLOOD COUNT 4.08 M/uL (4.2-5.4); WHITE BLOOD COUNT 8.64 K/uL (4.8-10.8)
[2016-09-27 06:47] LABS: ALB/GLOB RATIO 0.9 (0.9-2); BUN/CREATININE RATIO 12.9 (10-20); CALCIUM 8.2 mg/dl (8.5-10.1); CREATININE 0.79 mg/dl (0.60-1.20); MAGNESIUM 1.9 mg/dl (1.8-2.4); PHOSPHORUS 3.3 mg/dl (2.5-4.9); POTASSIUM 3.9 mmol/L (3.5-5.1)
[2016-09-27] MEDS: TRINTELLIX~ORDER AWAITING ACTION SCH ×3 (08:00→16:00)
[2016-09-27] MEDS: SODIUM CHLORIDE 0.9% 1000ML 1,000 ML IV SCH (08:07)
[2016-09-27] MEDS: PROPRANOLOL HCL 20 MG TAB PO PRN ×2 (08:09→20:59)
[2016-09-27] MEDS: SERTRALINE HCL 50 MG TAB PO SCH (08:09)
[2016-09-27] MEDS: ENOXAPARIN 40 MG/0.4 ML SYR SQ SCH (08:10)
[2016-09-27] MEDS: BuPROPion XL 300 MG TABCR PO SCH (08:10)
[2016-09-27] MEDS: MULTI-VITAMIN INFUSION INJ 10 ML, THIAMINE HCL INJ 100 MG, FoLIC ACID INJ 1 MG in SODIU... IV SCH (08:45)
--- NOTE | 2016-09-27 10:54 | Progress Note ---
Subjective Date of Service: Sep 27, 2016. Subjective Pt evaluation today including: conversation w/ patient, physical exam, lab review, review of studies, review of inpatient medication list Feels well. No chest pain, no sob. No abd pain. TOlerating diet. Smokes 1PPD, no plans on quitting. Also received vit D 50,000 Q weekly, 3rd week today. Takes Trintellix at home, given Zoloft this morning. Problem List Medical Problems: (1) Abnormal EKG Status: Acute (2) Alcohol intoxication Status: Acute (3) Benzocaine poisoning Status: Acute (4) Exposure to carbon monoxide Status: Acute (5) Substernal chest pain Status: Acute Review of Systems All Other Systems: Reviewed and Negative Medications Acetaminophen (Tylenol Tab) 650 mg Q4H PRN PO; Start 09/26/16 at 04:30; Stop 10/26/16 at 04:29 Al Hydrox/Mg Hydrox/Simethicone (Maalox Max Susp) 15 ml Q4H PRN PO; Start 09/26 at 04:30; Stop 10/26/16 at 04:29 Aripiprazole (Abilify Tab) 10 mg HS PO Last administered on 09/26/16 21:39; Admin Dose 10 MG; Start 09/26/16 at 21:30; Stop 10/26/16 at 21:29 Bupropion HCl (Wellbutrin-Xl Tab) 300 mg QAM PO Last administered on 09/27/16 08:10; Admin Dose 300 MG; Start 09/26/16 at 09:00; Stop 10/26/16 at 08:59 Enoxaparin Sodium (Lovenox Inj) 40 mg Q24H SQ Last administered on 09/27/16 08: 10; Admin Dose 40 MG; Start 09/26/16 at 09:00; Stop 10/26/16 at 08:59 Ibuprofen (Motrin Tab) 600 mg BID PRN PO; Start 09/26/16 at 05:00; Stop at 04:59 Lorazepam/Syringe (Ativan Inj/ Syringe) 1 ml @ 1 mls/min Q1H PRN IV; Start at 08:00; Stop 10/26/16 at 07:59 Magnesium Hydroxide (Milk Of Magnesia Susp) 30 ml Q6H PRN PO; Start 09/26/16 at 04:30; Stop 10/26/16 at 04:29 Miscellaneous (Remove Nicoderm Patch) 1 ea HS N/A; Start 09/27/16 at 21:00; Stop 10/27/16 at 20:59 Miscellaneous Information 1 ea 1 ea QS N/A; Start 09/26/16 at 08:00; Stop at 07:59 Miscellaneous 1 ea 1 ea PRN PRN N/A; Start 09/26/16 at 04:45; Stop 09/26/17 at 04:44 Multivitamins/ Thiamine HCl/ Folic Acid/Sodium Chloride (Mvi Infusion Inj/ Vitamin B-1 Inj/Folvite Inj/ Nss 1000ml) 1,011.2 ml @ 250 mls/ hr DAILY@0800 IV Last administered on 09/27/16 08:45; Admin Dose 250 MLS/HR; Start 09/26/16 at 08:00; Stop 10/26/16 at 07:59 Nicotine (Nicoderm Cq 21MG Patch) 1 patch QAM TD; Start 09/28/16 at 09:00; Stop 10/28/16 at 08:59 Ondansetron HCl (Zofran Inj) 4 mg Q6H PRN IV; Start 09/26/16 at 04:30; Stop at 04:29 Polyethylene (Miralax Powder Packet) 17 gm DAILY PRN PO; Start 09/26/16 at 04: 30; Stop 10/26/16 at 04:29 Propranolol HCl (Inderal Tab) 20 mg BID PRN PO Last administered on 09/27/16 08:09; Admin Dose 20 MG; Start 09/27/16 at 09:00; Stop 10/27/16 at 08:59 Sertraline HCl (Zoloft Tab) 150 mg DAILY PO Last administered on 09/27/16 08:09 ; Admin Dose 150 MG; Start 09/26/16 at 09:00; Stop 10/26/16 at 08:59 Trazodone HCl (Desyrel Tab) 50 mg HS PRN PO Last administered on 09/26/16 22: 16; Admin Dose 50 MG; Start 09/26/16 at 05:00; Stop 10/26/16 at 04:59 Objective Vital Signs Date Time Temp Pulse Resp B/P Pulse Ox O2 Delivery O2 Flow Rate FiO2 09/27/16 08:00 Room Air 09/27/16 07:22 36.8 71 18 152/89 96 Room Air 09/27/16 04:17 36.9 78 18 130/86 92 Room Air 09/27/16 04:15 Room Air 09/27/16 00:00 Room Air 09/26/16 23:27 36.5 76 18 128/83 93 Room Air 09/26/16 20:30 Room Air 09/26/16 19:34 37.0 77 20 128/85 93 Room Air 09/26/16 16:00 Room Air 09/26/16 15:28 37.1 80 16 113/80 93 Room Air 09/26/16 12:00 95 Room Air Physical Exam Comments: nad, aox3, anicteric s1 s2 rrr, no murmurs appreciated ctab no w/r/r abd soft nt nd +BS no LE edema Laboratory Results Last 24 Hours Test 09/27/16 05:04 White Blood Count 8.64 K/uL Red Blood Count 4.08 M/uL Hemoglobin 12.0 g/dL Hematocrit 36.9 % Mean Corpuscular Volume 90.4 fL Mean Corpuscular Hemoglobin 29.4 pg Mean Corpuscular Hemoglobin Concent 32.5 g/dl Platelet Count 245 K/uL Mean Platelet Volume 9.0 fL Neutrophils (%) (Auto) 59.1 % Lymphocytes (%) (Auto) 29.9 % Monocytes (%) (Auto) 6.9 % Eosinophils (%) (Auto) 3.6 % Basophils (%) (Auto) 0.3 % Neutrophils # (Auto) 5.10 K/uL Lymphocytes # (Auto) 2.58 K/uL Monocytes # (Auto) 0.60 K/uL Eosinophils # (Auto) 0.31 K/uL Basophils # (Auto) 0.03 K/uL RDW Standard Deviation 45.9 fL RDW Coefficient of Variation 13.8 % Immature Granulocyte % (Auto) 0.2 % Immature Granulocyte # (Auto) 0.02 K/uL Sodium Level 144 mmol/L Potassium Level 3.9 mmol/L Chloride Level 113 mmol/L Carbon Dioxide Level 27 mmol/L Anion Gap 4.0 mmol/L Blood Urea Nitrogen 10 mg/dl Creatinine 0.79 mg/dl Est Creatinine Clear Calc Drug Dose 83.9 ml/min Estimated GFR () 103.3 Estimated GFR (Non- 89.1 BUN/Creatinine Ratio 12.9 Random Glucose 78 mg/dl Calcium Level 8.2 mg/dl Phosphorus Level 3.3 mg/dl Magnesium Level 1.9 mg/dl Total Bilirubin 0.3 mg/dl Aspartate Amino Transf (AST/SGOT) 11 U/L Alanine Aminotransferase (ALT/SGPT) 19 U/L Alkaline Phosphatase 79 U/L Total Protein 5.8 gm/dl Albumin 2.7 gm/dl Globulin 3.1 gm/dl Albumin/Globulin Ratio 0.9 Assessment and Plan 1. Klonopin OD - no tele events - mental status at baseline - medically stable for transfer to mental health facility 2. MDD - h/o suicidal ideations with attempts - at risk of harming herself - psych meds per psych - possible inpatient mental health facility 3. Active smoking - cessation advised - nicotine patches - counselling provided 4. Vit D def - weekly ergocalciferol [id number] today
[2016-09-27] MEDS ORDERED: ERGOCALCIFEROL 50,000 INTER.UNIT CAP PO ONE (11:00)
--- NOTE | 2016-09-27 11:56 | Psychiatric Progress Notes ---
Psychiatric Progress Note Date of Service Sep 27, 2016. Notes ID: Patient reviewed with liaison nurse. I participated in the medical decision making outlined in the initial consult by BERENICE Santiago completed yesterday afternoon. CC: "I know I need some help with my anger" HPI: patient reiterated that she intentionally took Klonopin while intoxicated as angry at , admits her mood has been more labile and impulsive in context of that relationship. hasn't been in to hospital at this time. She reports depression and is amenable to inpatient care. ROS: denied physical complaints across 10 body systems MSE: alert, cooperative, affect mood congruent, thoughts organized. Denied SI currently. No HI. No weathers Imp: same as initial consult Plan: inpatient hospitalization is medically necessary, patient agreeable to 201 and expresses preference for Joe. If unwilling to sign when bed is located, would support 302 commitment as dangerous med combo, likely misrepresenting use and hx of inpatient hospitalization and unstable home relationship.
[2016-09-27] MEDS ORDERED: NURSING VERBAL MED ORDER ONE (12:15)
[2016-09-27] MEDS ORDERED: NCDT21 TD (15:42)
[2016-09-27] MEDS ORDERED: FOLATAB PO (15:42)
[2016-09-27] MEDS ORDERED: ATV/1 PO (15:42)
--- NOTE | 2016-09-27 15:42 | Discharge Instructions ---
Discharge Instructions Date of Service Sep 27, 2016. Admission Reason for Admission: Benzodiazepine Overdose Discharge Discharge Diagnosis / Problem: Klonopin overdose Discharge Goals Goal(s): Improve disease control, Prevent Disease Progression Activity Recommendations Activity Limitations: resume your previous activity . Current Hospital Diet Patient's current hospital diet: Regular Diet Discharge Diet Recommended Diet: Regular Diet Pending Studies Studies pending at discharge: no Laboratory Results Lipid Panel Test 07/08/16 06:40 Range/Units Triglycerides Level 213 H 0-150 mg/dl Cholesterol Level 224 H 0-200 mg/dl HDL Cholesterol 43 mg/dl Cholesterol/HDL Ratio 5.2 LDL Cholesterol, Calculated 138 mg/dl Medical Emergencies . Who to Call and When: Medical Emergencies: If at any time you feel your situation is an emergency, please call 911 immediately. . Non-Emergent Contact Non-Emergency issues call your: Primary Care Provider, Specialist (psychiatrist ) . . "Provider Documentation" section prepared by Kate Christianson. . VTE Core Measure Inpt VTE Proph given/why not?: Enoxaparin (Lovenox)SQ
--- NOTE | 2016-09-27 17:45 | Discharge Summary ---
Discharge Summary Date of Service Sep 27, 2016. Discharge Summary Admission Date: Sep 26, 2016 at 04:27 Discharge Date: Sep 27, 2016 Discharge Disposition: Acute care mental health Principal Diagnosis: Klonopin OD Medication Reconciliation New Medications: Folate-Vitamin [id number] (Intrinsi B12/Folate) 1 Tab Tab 1 TAB PO DAILY, #30 Lorazepam (Ativan) 1 Mg Tab 0.25 MG PO Q6H for agitation/anxiety for 14 Days, #14 TAB Nicotine (Nicotine) 1 Patch Tdsy 1 PATCH TD QAM for 14 Days Continued Medications: Aripiprazole (Abilify) 10 Mg Tab 1 TAB PO DAILY for 30 Days, #30 TAB 2 Refills Bupropion (Wellbutrin-Xl) 300 Mg Tabcr 300 MG PO QAM, TAB Ibuprofen (Motrin) 600 Mg Tab 600 MG PO BID PRN for Pain, #15 TAB Propranolol (Inderal) 20 Mg Tab 20 MG PO BID PRN for Anxiety, TAB Sertraline (Zoloft) 100 Mg Tab 150 MG PO DAILY, TAB Trazodone Hcl (Desyrel) 50 Mg Tab 50-100 MG PO HS PRN for Sleep, TAB Discontinued Medications: Clonazepam (Klonopin) 0.5 Mg Tab 0.5-1 TAB PO TID PRN for Anxiety Clonazepam (Klonopin) 2 Mg Tab 2 MG PO QAM Clonazepam (Klonopin) 2 Mg Tab 4 MG PO HS, TAB Vortioxetine HBr (Trintellix) 10 Mg Tab 10 MG PO DAILY Hospital Course 45-year-old female who presents with Klonopin and alcohol overdose. Uncertain of any other psychiatric diagnoses, though the patient is noted to be on multiple psychiatric medications. History is limited by the fact the patient is somnolent and cannot provide a cogent history. Per sign out from nursing and review of emergent department notes, the patient took anywhere from 5-10 Klonopin tablets. Currently she gets Klonopin prescribed and was just prescribed one week ago, but now her production bottles empty. She was observed under tele monitoring and mental status improved over 24 hours. Denies daily alcohol use and no e/o alcohol withdrawal while inpatient. Evaluated by psych and was deemed appropriate for inpatient mental health facility for attempting to harm herself by taking an excessive amount of Klonopin (15 tabs of 0.5mg tabs) along with alcohol. 1. Klonopin OD - no tele events - mental status at baseline - medically stable for transfer to mental health facility 2. MDD - h/o suicidal ideations with attempts - at risk of harming herself - psych meds per psych - possible inpatient mental health facility 3. Active smoking - cessation advised - nicotine patches - counselling provided 4. Vit D def - weekly ergocalciferol [id number] today, week 08/09 Total Time Spent: Greater than 30 minutes This includes examination of the patient, discharge planning, medication reconciliation, and communication with other providers. Discharge Instructions Please refer to the electronic Patient Visit Report (Discharge Instructions) for additional information. Additional Copies To Malu Argueta C.R.N.P
[2016-09-27] MEDS: ARIPIprazole TAB 10 MG TAB PO SCH (20:59)
[2016-09-27] MEDS: TRAZODONE HCL 50 MG TAB PO PRN (20:59)
[2016-09-28] MEDS ORDERED: NICOTINE 21 MG/24 HR TDSY TD SCH (09:00)
== END 2016-09-27 22:48 ==
LOC: ENRESERVDT → ENRESERVTM → C.EDA 00:38 → EDBD 00:38 → C.MSN 04:27 → C.2T 10:43
PROVIDERS: ADMIT Student in an Organized Health Care Education/Training Program; ATTEND Internal Medicine
DX: F10.121 Alcohol abuse with intoxication delirium (principal); T41 Poisoning by, adverse effect of and underdosing of anesthetics and therapeutic gases; X58.XXXA Exposure to other specified factors, initial encounter; E55.9 Vitamin D deficiency, unspecified; G47.00 Insomnia, unspecified; F32.9 Major depressive disorder, single episode, unspecified; E03.9 Hypothyroidism, unspecified; Z82.49 Family history of ischemic heart disease and other diseases of the circulatory system; Z83.6 Family history of other diseases of the respiratory system; Z87.891 Personal history of nicotine dependence; Z79.899 Other long term (current) drug therapy

== ENCOUNTER 2017-09-11 16:46 | Emergency (ER) | payer OTHER ==
[~2017-09-11] VITALS: Ht 157.5 cm; Wt 60.0 kg
[~2017-09-11 16:46] MED LIST changes: -ASPI-435 PO; -BUPR-83 PO; +BUPRTAB51 PO; +FOLATAB PO; +IBUP-1450 PO; -IBUP600T44 PO; -KLN1X PO; +NCDT21 TD; -PROP10TA7 PO; +PROP20TA67 PO; +TRAZ-119 PO; -TRAZ50TA35 PO
[2017-09-11 16:47] VITALS: TEMP 36.9; Ht 157.5 cm; Wt 60.0 kg
--- NOTE | 2017-09-11 16:57 | EMERGENCY ROOM VISIT NOTE ---
History Report prepared by Oren: Vikas Bourgeois Under the Supervision of: Dr. Nabil Hwang M.D. First contact with patient: 16:49 Chief Complaint: KNEEPAIN Stated Complaint: KNEE PAIN History of Present Illness The patient is a 46 year old female who presents to the Emergency Room via EMS with complaints of sudden right leg injury that occurred an hour ago. The patient was pushed by her dog and fell down 3 steps, and has had resulting right leg pain ever since the incident. The patient says that the pain is dull and achy when she is not moving, but with movement the pain is sharp. She notes that she did not hit her head hard on the fall, and denies any loss of consciousness, headaches, hip pain, or any pain other than the right leg over the anterior tibia and the knee. She states that she is not on any blood thinners. The patient notes that her last tetanus shot is up-to-date. Source of History: patient Onset: An hour ago Position: leg (right) Symptom Intensity: sharp pain with movement Quality: other (injury) Timing: other (sudden) Modifying Factors (Worsening): movement Associated Symptoms: No LOC, No headache Note: Right leg pain. Denies any other pain. Review of Systems See HPI for pertinent positives and negatives. A total of ten systems were reviewed and were otherwise negative. Past Medical & Surgical Medical Problems: (1) Acute exacerbation of chronic low back pain (2) Benzodiazepine overdose (3) Dehydration (4) Depression (5) HNP (herniated nucleus pulposus), lumbar (6) Hypothyroidism (7) Pain of right lower leg (8) Pain of right lower leg (9) Precordial chest pain (10) Renal insufficiency (11) Spasm of back muscles (12) Suicide attempt Surgical Problems: (1) History of - tubal ligation (2) Hx of decompressive lumbar laminectomy Family History Cancer Hypertension Lung disease Social History Smoking Status: Current Every Day Smoker Alcohol Use: none Drug Use: other Marital Status: Housing Status: lives with family Occupation Status: employed Current/Historical Medications Scheduled Bupropion (Wellbutrin-Xl), 300 MG PO QAM Sertraline (Zoloft), 200 MG PO DAILY Vortioxetine HBr (Trintellix), 5 MG PO DAILY Scheduled PRN Oxycodone/Acetaminophen 5MG/325MG (Percocet 5MG/325MG), 1 TAB PO TID PRN for Pain Propranolol (Inderal), 20 MG PO BID PRN for Anxiety Trazodone Hcl (Desyrel), 50-100 MG PO HS PRN for Sleep Allergies Coded Allergies: Penicillins (Verified Allergy, Intermediate, RASH/HIVES, 08/07/16) Ketorolac Tromethamine (Unverified Adverse Reaction, Unknown, "SWEATS AND VOMITING", 08/07/16) Physical Exam Vital Signs Date Time Temp Pulse Resp B/P (MAP) Pulse Ox O2 Delivery O2 Flow Rate FiO2 09/11/17 18:56 79 16 96 Room Air 09/11/17 18:06 90 20 109/79 95 Room Air 09/11/17 16:47 36.9 86 20 132/83 96 Room Air Physical Exam Physical Exam GENERAL: She is oriented to person, place, and time. She appears well- developed and well-nourished. She does not appear distressed. ____ HENT: Exam performed. Head: Normocephalic and atraumatic. Right Ear: External ear normal. No mastoid tenderness. Left Ear: External ear normal. No mastoid tenderness. Mouth/Throat: The oropharynx is clear and moist. No trismus in the jaw. No dental abscesses or uvula swelling. No oropharyngeal exudate or tonsillar abscesses. ____ EYES: Conjunctivae and EOM are normal. Pupils are equal, round, and reactive to light. Right eye exhibits no discharge. Left eye exhibits no discharge. No scleral icterus. ____ NECK: Normal range of motion. Neck supple. No JVD present. No spinous process tenderness present. No carotid bruit present. No rigidity. No tracheal deviation and normal range of motion present. No Brudzinski's sign and no Kernig 's sign noted. ____ CV: Normal rate, regular rhythm, normal heart sounds and intact distal pulses. There is no peripheral edema. Palpable radial pulses bue. ____ PULM/CHEST: Effort normal and breath sounds normal. No respiratory distress. No stridor. She has no wheezes. She has no rales. Chest Wall: She exhibits no tenderness. ____ ABD: The abdomen is soft. Bowel sounds are normal. She has no distension. No mass is present. There is no tenderness. There is no rebound, no guarding, no Cervantes's sign and no tenderness at McBurney's point. Rovsig negative MUSC/SKEL: The pelvis is stable. Pain on palpation right knee. Pain on palpation right popliteal area. No pain on palpation right medial or lateral malleolus. Full range of motion of left lower extremity._ LYMPH: No cervical adenopathy. ____ NEURO: She is alert and oriented to person, place, and time. She has normal strength. No cranial nerve deficit or sensory deficit. Coordination and gait normal. GCS eye subscore is 4. GCS verbal subscore is 5. GCS motor subscore is 6. Cerebellar tests wnl. ____ SKIN: Skin is warm and dry. She is not diaphoretic. ____ PSYCH: She has a normal mood and affect. She behavior is normal. Judgment and thought content normal. ____ Medical Decision & Procedures ER Provider Diagnostic Interpretation: Radiology results as stated below per my review and radiologist interpretation: PELVIS 1 OR 2 VIEW ROUTINE, R FEMUR 2 VIEWS ROUTINE, R KNEE 4 OR MORE VIEWS CLINICAL HISTORY: Fall. Pelvic pain. Right leg pain and right knee pain. COMPARISON STUDY: None. FINDINGS: No fracture or dislocation within the pelvis, hips, or right femur. There is a moderate lipohemarthrosis within the knee. No dislocation. Lateral tibial plateau fracture which extends to the midline. This also extends to the medial metaphysis. The lateral tibial plateau demonstrates approximately 2 mm of depression medially. IMPRESSION: 1. Proximal tibial fracture as described above with and associated moderate lipohemarthrosis. 2. No acute fracture or dislocation within the pelvis, hips, right femur. Electronically signed by: Mazin Nash M.D. 09/11/2017 5:42 PM Dictated Date/Time: 09/11/2017 5:37 PM PELVIS 1 OR 2 VIEW ROUTINE, R FEMUR 2 VIEWS ROUTINE, R KNEE 4 OR MORE VIEWS CLINICAL HISTORY: Fall. Pelvic pain. Right leg pain and right knee pain. COMPARISON STUDY: None. FINDINGS: No fracture or dislocation within the pelvis, hips, or right femur. There is a moderate lipohemarthrosis within the knee. No dislocation. Lateral tibial plateau fracture which extends to the midline. This also extends to the medial metaphysis. The lateral tibial plateau demonstrates approximately 2 mm of depression medially. IMPRESSION: 1. Proximal tibial fracture as described above with and associated moderate lipohemarthrosis. 2. No acute fracture or dislocation within the pelvis, hips, right femur. Electronically signed by: Mazin Nash M.D. 09/11/2017 5:42 PM Dictated Date/Time: 09/11/2017 5:37 PM PELVIS 1 OR 2 VIEW ROUTINE, R FEMUR 2 VIEWS ROUTINE, R KNEE 4 OR MORE VIEWS CLINICAL HISTORY: Fall. Pelvic pain. Right leg pain and right knee pain. COMPARISON STUDY: None. FINDINGS: No fracture or dislocation within the pelvis, hips, or right femur. There is a moderate lipohemarthrosis within the knee. No dislocation. Lateral tibial plateau fracture which extends to the midline. This also extends to the medial metaphysis. The lateral tibial plateau demonstrates approximately 2 mm of depression medially. IMPRESSION: 1. Proximal tibial fracture as described above with and associated moderate lipohemarthrosis. 2. No acute fracture or dislocation within the pelvis, hips, right femur. Electronically signed by: Mazin Nash M.D. 09/11/2017 5:42 PM Dictated Date/Time: 09/11/2017 5:37 PM R TIBIA/FIBULA 2 VIEWS ROUTINE CLINICAL HISTORY: Tibial plateau fracture. COMPARISON STUDY: Right knee 09/11/2017. FINDINGS: No fractures identified within the right fibula. Moderate lipohemarthrosis within the right knee is again noted. Comminuted proximal tibial fracture extending into the tibial spines and lateral tibial plateau. A fracture line also extends to the medial proximal metaphysis. There is 2 mm of depression of the lateral tibial plateau. IMPRESSION: 1. Redemonstration of the comminuted proximal tibial fracture. This demonstrates mild depression within the lateral tibial plateau. 2. Moderate lipohemarthrosis within the knee. Electronically signed by: Mazin Nash M.D. 09/11/2017 6:17 PM Dictated Date/Time: 09/11/2017 6:14 PM R ANKLE MIN 3 VIEWS ROUTINE CLINICAL HISTORY: Fall. COMPARISON: None FINDINGS: Alignment of the right ankle is anatomic. There is no acute fracture. Talar dome is intact. IMPRESSION: No acute fracture or dislocation of the right ankle. Electronically signed by: Jaiden Walters M.D. 09/11/2017 6:16 PM Dictated Date/Time: 09/11/2017 6:[address] DOSE: HISTORY: Tibial plateau fracture. TECHNIQUE: Multiaxial CT images of the right knee were performed and reformatted in the sagittal and coronal plane without the use of contrast. A dose lowering technique was utilized adhering to the principles of ALARA. COMPARISON: Right knee 09/11/2017. FINDINGS: Redemonstration of the proximal tibial fracture which extends into the tibial spines, lateral tibial plateau, anterior to the medial tibial plateau, and posterior aspect of the proximal tibial shaft. The majority of the fractures is not significantly displaced. There is slight depression of approximately 2 mm of the medial aspect of the lateral tibial plateau. The fibula, femur, patella are intact. Moderate lipohemarthrosis. IMPRESSION: 1. A comminuted proximal tibial fracture as described above. The majority of the fracture is not significantly displaced. There is approximately 2 mm of depression of the medial aspect of the lateral tibial plateau. 2. Moderate lipohemarthrosis. Electronically signed by: Mazin Nash M.D. 09/11/2017 7:17 PM Dictated Date/Time: 09/11/2017 7:13 PM Medications Administered Medications (Trade) Dose Ordered Sig/Larisa Route Start Time Stop Time Status Last Admin Dose Admin Ketorolac Tromethamine (Toradol Inj) 15 mg STK-MED ONCE .ROUTE 09/11/17 17:04 09/11/17 17:05 DC 09/11/17 17:05 15 MG Oxycodone/ Acetaminophen (Percocet 5-325mg Tab) 1 tab NOW ONCE PO 09/11/17 18:30 09/11/17 18:31 DC 09/11/17 18:35 1 TAB ED Course 1650: The patient was evaluated in room B3B. A complete history and physical exam was performed. 1830: Percocet 5-325mg Tab 1 tab PO. 0: X-ray shows tibial plateau fracture. I spoke with the ortho promotions assistant ([facility] ) - he said to get a CT of the patient's knee. 1843: I updated the patient and she is agreeable on the plan. 1924: I spoke with the ortho promotions assistant ([facility]) - he reviewed the patient's CT scan and says that the patient can be discharged with a knee immobilizer, and follow- up in 1 to 7 days. DC with analgesia. DISCHARGE - Plan of care discussed with patient and questions answered. The patient was given both verbal and printed discharge instructions. The patient verbalized understanding and ability to comply. The patient is to seek outpatient follow up as noted in the discharge instructions. The patient verbalized understanding and ability to comply. The patient is discharged in stable condition. The patient was instructed to return for worsening symptoms. Medical Decision 184: X-ray shows tibial plateau fracture. I spoke with the ortho promotions assistant ([facility] ) - he said to get a CT of the patient's knee. 1843: I updated the patient and she is agreeable on the plan. 1924: I spoke with the ortho promotions assistant ([facility]) - he reviewed the patient's CT scan and says that the patient can be discharged with a knee immobilizer, and follow- up in 1 to 7 days. DC with analgesia. DISCHARGE - Plan of care discussed with patient and questions answered. The patient was given both verbal and printed discharge instructions. The patient verbalized understanding and ability to comply. The patient is to seek outpatient follow up as noted in the discharge instructions. The patient verbalized understanding and ability to comply. The patient is discharged in stable condition. The patient was instructed to return for worsening symptoms. [place] Drug Monitoring Program Search Results: patient reviewed within database Drug Monitoring Findings: Patient does have a history of receiving Clonazepam from 2 providers. No red flags. Medication Reconcilliation Current Medication List: was personally reviewed by me Blood Pressure Screening Patient's blood pressure: Elevated blood pressure Blood pressure disposition: Elevated BP felt to be situational Consults Time Called: 183 Consulting Physician: [facility] promotions assistant Returned Call: 184 I spoke with the ortho promotions assistant ([facility]) - he said to get a CT of the patient's knee. Additional Consults: Time Called: 1919 Consulted Physician: Mad[facility] promotions assistant Returned Call: 1924 Additional Comments: spoke with the ortho promotions assistant ([facility]) - he reviewed the patient's CT scan and says that the patient can be discharged with a knee immobilizer, and follow-up in 1 to 7 days. Impression Primary Impression: Tibial plateau fracture, right Scribe Attestation The scribe's documentation has been prepared under my direction and personally reviewed by me in its entirety. I confirm that the note above accurately reflects all work, treatment, procedures, and medical decision making performed by me. The chart was completed utilizing [employer] Speech voice recognition software. Grammatical errors, random word insertions, pronoun errors, and incomplete sentences are an occasional consequence of this system due to software limitations, ambient noise, and hardware issues. Any formal questions or concerns about the content, text, or information contained within the body of this dictation should be directly addressed to the physician for clarification. Departure Information Dispostion Home / Self-Care Prescriptions Oxycodone/Acetaminophen 5MG/325MG (PERCOCET 5MG/325MG) Tab 1 TAB PO TID Y for Pain, #28 TAB Prov: Nabil Hwang M.D. 09/11/17 Referrals Malu Argueta C[facility] (PCP) [facility] Patient Instructions ED Fx Lower Ext, ED Immobilizer Knee, [facility] Problem Qualifiers Primary Impression: Tibial plateau fracture, right Encounter type: initial encounter Fracture type: closed Qualified Codes: S82.141A - Displaced bicondylar fracture of right tibia, initial encounter for closed fracture
[2017-09-11] MEDS ORDERED: KETOROLAC TROMETHAMINE 15 MG/ML VIAL ONE (17:04)
--- NOTE | 2017-09-11 17:44 | DIAGNOSTIC IMAGING REPORT ---
PELVIS 1 OR 2 VIEW ROUTINE, R FEMUR 2 VIEWS ROUTINE, R KNEE 4 OR MORE VIEWS CLINICAL HISTORY: Fall. Pelvic pain. Right leg pain and right knee pain. COMPARISON STUDY: None. FINDINGS: No fracture or dislocation within the pelvis, hips, or right femur. There is a moderate lipohemarthrosis within the knee. No dislocation. Lateral tibial plateau fracture which extends to the midline. This also extends to the medial metaphysis. The lateral tibial plateau demonstrates approximately 2 mm of depression medially. IMPRESSION: 1. Proximal tibial fracture as described above with and associated moderate lipohemarthrosis. 2. No acute fracture or dislocation within the pelvis, hips, right femur. Electronically signed by: Mazin Nash M.D. 09/11/2017 5:42 PM Dictated Date/Time: 09/11/2017 5:37 PM
[2017-09-11] MEDS ORDERED: VORT1TAB PO (18:05)
--- NOTE | 2017-09-11 18:18 | DIAGNOSTIC IMAGING REPORT ---
R ANKLE MIN 3 VIEWS ROUTINE CLINICAL HISTORY: Fall. COMPARISON: None FINDINGS: Alignment of the right ankle is anatomic. There is no acute fracture. Talar dome is intact. IMPRESSION: No acute fracture or dislocation of the right ankle. Electronically signed by: Jaiden Walters M.D. 09/11/2017 6:16 PM Dictated Date/Time: 09/11/2017 6:15 PM
--- NOTE | 2017-09-11 18:18 | DIAGNOSTIC IMAGING REPORT ---
R TIBIA/FIBULA 2 VIEWS ROUTINE CLINICAL HISTORY: Tibial plateau fracture. COMPARISON STUDY: Right knee 09/11/2017. FINDINGS: No fractures identified within the right fibula. Moderate lipohemarthrosis within the right knee is again noted. Comminuted proximal tibial fracture extending into the tibial spines and lateral tibial plateau. A fracture line also extends to the medial proximal metaphysis. There is 2 mm of depression of the lateral tibial plateau. IMPRESSION: 1. Redemonstration of the comminuted proximal tibial fracture. This demonstrates mild depression within the lateral tibial plateau. 2. Moderate lipohemarthrosis within the knee. Electronically signed by: Mazin Nash M.D. 09/11/2017 6:17 PM Dictated Date/Time: 09/11/2017 6:14 PM
[2017-09-11] MEDS ORDERED: OXYCODONE/ACETAMINOPHEN 5-325 TAB PO ONE (18:30)
--- NOTE | 2017-09-11 19:18 | DIAGNOSTIC IMAGING REPORT ---
RIGHT KNEE CT CT DOSE: HISTORY: Tibial plateau fracture. TECHNIQUE: Multiaxial CT images of the right knee were performed and reformatted in the sagittal and coronal plane without the use of contrast. A dose lowering technique was utilized adhering to the principles of ALARA. COMPARISON: Right knee 09/11/2017. FINDINGS: Redemonstration of the proximal tibial fracture which extends into the tibial spines, lateral tibial plateau, anterior to the medial tibial plateau, and posterior aspect of the proximal tibial shaft. The majority of the fractures is not significantly displaced. There is slight depression of approximately 2 mm of the medial aspect of the lateral tibial plateau. The fibula, femur, patella are intact. Moderate lipohemarthrosis. IMPRESSION: 1. A comminuted proximal tibial fracture as described above. The majority of the fracture is not significantly displaced. There is approximately 2 mm of depression of the medial aspect of the lateral tibial plateau. 2. Moderate lipohemarthrosis. Electronically signed by: Mazin Nash M.D. 09/11/2017 7:17 PM Dictated Date/Time: 09/11/2017 7:13 PM
[2017-09-11] MEDS ORDERED: OXYC-57 PO (19:30)
[2017-09-11 20:05] VITALS: BP 117/74; PULSE 79; O2SAT 95
[2017-09-12] MEDS ORDERED: XRL10 PO (19:30)
[2017-09-12] MEDS ORDERED: LURA40TA PO (19:59)
[2017-09-12] MEDS ORDERED: FLUT0.15 NAE (19:59)
== END 2017-09-11 20:23 | disposition home or self-care (01) ==
LOC: EDBD 16:46 → C.EDB 16:47
DX: S82.141A Displaced bicondylar fracture of right tibia, initial encounter for closed fracture (principal); W10.9XXA Fall (on) (from) unspecified stairs and steps, initial encounter; R03.0 Elevated blood-pressure reading, without diagnosis of hypertension; F32.9 Major depressive disorder, single episode, unspecified; F17.200 Nicotine dependence, unspecified, uncomplicated; Z79.899 Other long term (current) drug therapy; Z88.0 Allergy status to penicillin; Z88.6 Allergy status to analgesic agent; Z82.49 Family history of ischemic heart disease and other diseases of the circulatory system; Z83.6 Family history of other diseases of the respiratory system

== ENCOUNTER 2017-09-12 18:03 | Emergency (ER) | payer OTHER ==
[~2017-09-12 18:03] MED LIST changes: -ABL10 PO; -FLUT0.15 NAE; -FOLATAB PO; -IBUP-1450 PO; -LURA40TA PO; -NCDT21 TD; -XRL10 PO
[2017-09-12 18:22] VITALS: TEMP 37.4; Ht 157.5 cm
[2017-09-12] MEDS ORDERED: ONDANSETRON 4MG OD TAB PO STA (19:08)
[2017-09-12] MEDS ORDERED: RIVAROXABAN 20 MG TAB PO STA (19:08)
[2017-09-12] MEDS ORDERED: MoRPHine SULFATE 10 MG/ML CARP/VIAL IM STA (19:08)
[2017-09-12] MEDS ORDERED: RIVAROXABAN TAB 15 MG TAB PO STA (19:15)
[2017-09-12] MEDS ORDERED: XRL10 PO (19:30)
[2017-09-12] MEDS ORDERED: MoRPHine SULFATE 2 MG/ML CARP ONE (19:30)
[2017-09-12] MEDS ORDERED: MoRPHine SULFATE 4 MG/ML 1 ML CARP\\VIAL ONE (19:30)
--- NOTE | 2017-09-12 19:31 | EMERGENCY ROOM VISIT NOTE ---
History First contact with patient: 18:42 Chief Complaint: REFERRED BY DOCTOR Stated Complaint: SENT FROM ULTR, THROMBUS History of Present Illness The patient is a 46 year old female who presents to the Emergency Room with complaints of severe pain in the right leg and some numbness and tingling in the foot. The patient sustained a right tibial plateau fracture yesterday when she sustained a mechanical fall. The patient saw [facility] today. They ordered an ultrasound, which was performed. The patient was informed that she had a blood clot and needed to go to the emergency department. She denies any new injuries. She has been taking her pain medication with mild to moderate pain relief. No history of blood clots. She is a smoker. She denies any chest pain or shortness of breath. Review of Systems 10 system review performed and negative unless noted in HPI or below Past Medical/Surgical History Medical Problems: (1) Acute exacerbation of chronic low back pain (2) Benzodiazepine overdose (3) Dehydration (4) Depression (5) HNP (herniated nucleus pulposus), lumbar (6) Hypothyroidism (7) Pain of right lower leg (8) Pain of right lower leg (9) Precordial chest pain (10) Renal insufficiency (11) Spasm of back muscles (12) Suicide attempt Surgical Problems: (1) History of - tubal ligation (2) Hx of decompressive lumbar laminectomy Family History Cancer Hypertension Lung disease Social History Smoking Status: Current Every Day Smoker Alcohol Use: none Drug Use: other Marital Status: Housing Status: lives with family Occupation Status: employed Current/Historical Medications Scheduled Bupropion (Wellbutrin-Xl), 300 MG PO QAM Fluticasone Propionate (Nasal) (Flonase Allergy Relief), 1 SPRAY JUANI BID Lurasidone Hcl (Latuda), 40 MG PO DAILY Rivaroxaban (Xarelto), 1.5 TAB PO BID Sertraline (Zoloft), 200 MG PO DAILY Scheduled PRN Oxycodone/Acetaminophen 5MG/325MG (Percocet 5MG/325MG), 1 TAB PO TID PRN for Pain Trazodone Hcl (Desyrel), 50-100 MG PO HS PRN for Sleep Physical Exam Vital Signs Date Time Temp Pulse Resp B/P (MAP) Pulse Ox O2 Delivery O2 Flow Rate FiO2 09/12/17 20:14 100 18 108/75 93 Room Air 09/12/17 19:35 98 18 118/75 94 Room Air 09/12/17 18:22 37.4 97 18 115/82 98 Room Air Physical Exam VITALS: Vitals are noted on the nurse's note and reviewed by myself. Vital signs stable. GENERAL: 46-year-old female, mildly uncomfortable,, in no acute distress, nondiaphoretic, well-developed well-nourished. SKIN: The skin was intact HEAD: Normocephalic atraumatic. ABDOMEN: . MUSCULOSKELETAL: Right knee immobilizer in place. Mild, calf tenderness. No significant erythema or edema. DP and PT pulse in the right foot +2. The patient is able to wiggle her toes. Sensation over the medial aspect of the left foot subjectively decreased. NEURO: Patient was alert and oriented to person place and time. Medical Decision & Procedures Medications Administered Medications (Trade) Dose Ordered Sig/Larisa Route Start Time Stop Time Status Last Admin Dose Admin Ondansetron HCl (Zofran Odt) 4 mg NOW STAT PO 09/12/17 19:08 09/12/17 19:11 DC 09/12/17 19:36 4 MG Rivaroxaban (Xarelto Tab) 15 mg NOW STAT PO 09/12/17 19:15 09/12/17 19:16 DC 09/12/17 19:36 15 MG Morphine Sulfate (MoRPHine SULFATE INJ) 4 mg STK-MED ONCE .ROUTE 09/12/17 19:30 09/12/17 19:31 DC 09/12/17 19:36 4 MG Morphine Sulfate (MoRPHine SULFATE INJ) 2 mg STK-MED ONCE .ROUTE 09/12/17 19:30 09/12/17 19:31 DC 09/12/17 19:36 2 MG ED Course The patient was seen and examined She was medicated with morphine 6 mg IM and Zofran 4 mg ODT She was also given 1 dose of Xarelto 15 mg The case was discussed with my supervising physician who is in agreement with my plan Discharge instructions were reviewed, and she was discharged in good condition Medical Decision Differential diagnosis: DVT, PAD, neuropathy, edema, fracture, hypercoagulable state, compartment syndrome This patient presents to the emergency department per her orthopedic doctors request due to abnormal ultrasound results. The patient has a nearly occlusive thrombus of the peroneal vein. her DP and PT pulses are intact. Sensation in the toes is intact, however subjectively slightly dull over the medial aspect of the foot. She is able to wiggle her toes. I do not suspect compartment syndrome. Do not suspect arterial compromise. She denies any chest pain or shortness of breath. She is not hypoxic. I do not suspect a pulmonary embolus. No history of renal insufficiency. I believe she is stable to be discharged home on Xarelto. The patient is comfortable with this plan. She will follow-up with her PCP on Friday. She will return with any new or worsening symptoms. Impression Primary Impression: DVT (deep venous thrombosis) Departure Information Dispostion Home / Self-Care Condition GOOD Prescriptions Rivaroxaban (Xarelto) 10 Mg Tab 1.5 TAB PO BID for 21 Days, #63 TAB Prov: Priti Landry PA-C 09/12/17 Referrals Malu Argueta C.R.N.P (PCP) Patient Instructions [facility] Additional Instructions You were treated in the emergency department today for a blood clot. He will be started on a blood thinning medication called Xarelto. Please take 15 mg twice daily with food for 21 days unless otherwise directed by your primary care doctor Please follow-up with your primary care doctor as soon as possible. Call first thing Friday morning for a follow-up appointment Continue pain medication as prescribed Please do not hesitate to return to the emergency department with any new, worsening or concerning symptoms; especially, pain in your chest or difficulty breathing
[2017-09-12] MEDS ORDERED: LURA40TA PO (19:59)
[2017-09-12] MEDS ORDERED: FLUT0.15 NAE (19:59)
[2017-09-12 20:14] VITALS: BP 108/75; PULSE 100; O2SAT 93
== END 2017-09-12 20:32 | disposition home or self-care (01) ==
LOC: C.EDB 18:07 → C.EDC 20:32
DX: I82.401 Acute embolism and thrombosis of unspecified deep veins of right lower extremity (principal); S82.141D Displaced bicondylar fracture of right tibia, subsequent encounter for closed fracture with routine healing; X58.XXXD Exposure to other specified factors, subsequent encounter; F17.210 Nicotine dependence, cigarettes, uncomplicated; G89.29 Other chronic pain; M54.5 Low back pain; F32.9 Major depressive disorder, single episode, unspecified; E03.9 Hypothyroidism, unspecified; Z98.51 Tubal ligation status; Z80.9 Family history of malignant neoplasm, unspecified; Z82.49 Family history of ischemic heart disease and other diseases of the circulatory system; Z79.899 Other long term (current) drug therapy

== ENCOUNTER → 2017-09-12 | Outpatient (CLI) | payer OTHER ==
[~2017-09-12] MED LIST changes: +FLUT0.15 NAE; +LURA40TA PO; +OXYC-57 PO; +VORT1TAB PO; +XRL10 PO
--- NOTE | 2017-09-12 17:13 | DIAGNOSTIC IMAGING REPORT ---
RIGHT LOWER EXTREMITY VENOUS DOPPLER HISTORY: Right calf pain. COMPARISON STUDY: None. FINDINGS: There is near occlusive thrombus seen within the right peroneal vein. Otherwise, the remaining deep venous structures within the right lower extremity are patent. IMPRESSION: Near occlusive thrombus seen within the right peroneal veins. Electronically signed by: Mazin Nash M.D. 09/12/2017 5:11 PM Dictated Date/Time: 09/12/2017 5:11 PM
== END | disposition home or self-care (01) ==
LOC: C.ULTR 16:24
PROVIDERS: ATTEND Physician Assistant
DX: M79.661 Pain in right lower leg (principal); I82.401 Acute embolism and thrombosis of unspecified deep veins of right lower extremity

== ENCOUNTER 2018-01-25 00:26 | Emergency (ER) | payer OTHER ==
[~2018-01-25] VITALS: Ht 160 cm; Wt 64.2 kg
[~2018-01-25 00:26] MED LIST changes: +FLUT0.15 NAE; +LURA40TA PO; -PROP20TA67 PO; -TRAZ-119 PO; +TRAZ1TAB96 PO; -VORT1TAB PO
[2018-01-25 00:29] VITALS: TEMP 37.4; Ht 160 cm; Wt 64.2 kg
--- NOTE | 2018-01-25 00:43 | EMERGENCY ROOM VISIT NOTE ---
History Report prepared by Oren: Maynor Sharif Under the Supervision of: Dr. Yumiko Bartholomew D.O. First contact with patient: 00:36 Chief Complaint: BACK INJURY Stated Complaint: back injury History of Present Illness The patient is a 47 year old female who presents to the Emergency Room with complaints of constant upper to mid back pain beginning Friday morning. The patient states she was going up the stairs to her house when she fell backwards. She reports she fell three steps and landed on to her back on a gravel surface. The patient notes she thought a nights rest would make her feel better, but it did not. She states she hit her head, and she denies LOC. The patient reports it hurts to breathe, and when she breathes, her pain radiates to her sides. She notes she did not take anything for pain because she is on Xarelto, and she did not have Tylenol at her house. The patient also reports lower abdominal pain and denies previous injury. She states she has a history of sciatica surgery at the neuroforaminal opening by Dr. Devlin [facility]. Source of History: patient Onset: Friday morning Position: back (upper) Timing: constant Modifying Factors (Worsening): breathing Associated Symptoms: + abdominal pain, No LOC Note: Associated symptoms: side pain Review of Systems See HPI for pertinent positives & negatives. A total of 10 systems reviewed and were otherwise negative. Past Medical & Surgical Medical Problems: (1) Acute exacerbation of chronic low back pain (2) Benzodiazepine overdose (3) Dehydration (4) Depression (5) HNP (herniated nucleus pulposus), lumbar (6) Hypothyroidism (7) Pain of right lower leg (8) Pain of right lower leg (9) Precordial chest pain (10) Renal insufficiency (11) Spasm of back muscles (12) Suicide attempt Surgical Problems: (1) History of - tubal ligation (2) Hx of decompressive lumbar laminectomy Family History Cancer Hypertension Lung disease Social History Smoking Status: Current Every Day Smoker Alcohol Use: none Drug Use: other Marital Status: Housing Status: lives with family Occupation Status: employed Current/Historical Medications Scheduled Bupropion (Wellbutrin-Xl), 300 MG PO QAM Clonazepam (Klonopin), 0.5 MG PO QAM Lurasidone Hcl (Latuda), 60 MG PO DAILY Rivaroxaban (Xarelto), 10 MG PO DAILY Sertraline (Zoloft), 200 MG PO DAILY Scheduled PRN Trazodone Hcl (Desyrel), 50-100 MG PO HS PRN for Sleep Allergies Coded Allergies: Penicillins (Verified Allergy, Intermediate, RASH/HIVES, 01/25/18) Ketorolac Tromethamine (Unverified Adverse Reaction, Unknown, "SWEATS AND VOMITING", 01/25/18) Physical Exam Vital Signs Date Time Temp Pulse Resp B/P (MAP) Pulse Ox O2 Delivery O2 Flow Rate FiO2 01/25/18 04:12 98 18 110/72 99 01/25/18 00:29 37.4 133 16 105/72 92 Room Air Physical Exam HEENT: Head - normocephalic. Hematoma on the right occiput. Pupils are equal, round, and reactive to light. Extraocular eye muscles are intact and sclera are anicteric. Ears - bilaterally patent canals with no evidence of hemotympanum. Nose - moist nasal mucosa without evidence of trauma or discharge. Mouth - moist buccal mucosa with no trauma to the teeth or signs of malocclusion. Neck: The neck is supple and there is no pain to palpation over the posterior cervical spine and no obvious step-offs or deformities. There is no JVD or tracheal deviation. Chest: There are no signs of deformities, contusions or abrasions to the chest wall. There is no obvious crepitus or paradoxical chest rise. Heart: Regular, rate, and rhythm. There is a normal S1 and S2 with no murmurs, clicks, or gallops appreciated. Lungs: Clear to auscultation bilaterally with no wheezes, rales, or rhonchi. Abdomen: Soft, tenderness to the suprapubic and periumbilical regions upon palpation, nondistended, with good bowel sounds. There is no sign of trauma such as contusions, abrasions or penetrations. There are no palpable pulsatile masses or hepatosplenomegaly. There is no guarding, rigidity, or rebound noted. Pelvis: Stable to rock and compression. Extremities: No obvious trauma, deformities, contusions, or edema. There are easily palpable peripheral pulses. Neuro: The patient is awake and alert and easily able to follow commands. Muscle strength is 5 out of 5 in all 4 extremities. Otherwise, neuro exam is unremarkable. Back: The entire thoracic, lumbar, and sacral spine were palpated. There are no obvious step-offs or deformities noted. There are no obvious signs of penetrations noted to the back. Abrasions to the left mid back. Pain over the mid-thoracic spine. Medical Decision & Procedures ER Provider Diagnostic Interpretation: Radiology results as stated below per my review and the radiologist's interpretation: CT CHEST With Contrast: Findings: There is apical bullous replacement in the lungs with extensive peripheral bleb formation the upper lobes. There is thickening of the fissure on right. No evidence of or pneumothorax or pulmonary contusion. No evidence of mediastinal hemorrhage or hematoma. No evidence for abnormality aorta. No evidence for displaced rib fracture. Is a compression deformity of superior endplate of T11 with approximately 3 mm loss of height. No significant retropulsion of the posterior margin the vertebral body into the canal no significant canal effacement. Fracture line does not extend into the pedicles. Impression: Fracture T11 approximately 3 mm loss of height. No evidence pneumothorax. No evidence for mediastinal hemorrhage or hematoma. Extensive peripheral bleb formation with apical bullous replacement in the lungs CT T SPINE: Findings: Compression deformity of the superior endplate of T11 with approximately 3 mm loss of height. There is no significant retropulsion the posterior margin of the vertebral body into the canal. No significant canal effacement noted. Fracture line does not extend to the pedicles. No other fractures are identified. Impression: Compression deformity of the superior endplate of T11 with 3 mm loss of height CT ABDOMEN & PELVIS With Contrast: FINDINGS: The lung bases are clear. The liver and spleen are normal in size and free of mass lesions. The gallbladder, bile ducts and pancreas are normal. The adrenal gland are unremarkable. The kidneys are normal in size. There is a 1.7 cm right renal cyst. No evidence for hydronephrosis. No evidence for renal calculi. The appendix is unremarkable, as is the rest of the GI tract. Aorta is normal caliber. No adenopathy or extraluminal air. There is a compression deformity superior endplate of T11 with approximately 3 mm loss of height. No significant retropulsion the posterior margin the vertebral body into the canal. No significant canal effacement. Fracture does not extend to the posterior elements. IMPRESSION: Unremarkable CT abdomen and pelvis. There is a compression deformity of T11 with 3 mm loss of height. No significant canal effacement. Radiologist: Carlin Hager MD Study ready at 01:31 and initial results transmitted at 02:24 Medications Administered Medications (Trade) Dose Ordered Sig/Larisa Route Start Time Stop Time Status Last Admin Dose Admin Oxycodone HCl (Roxicodone Immediate Rel Tab) 5 mg NOW STAT PO 01/25/18 01:19 01/25/18 01:20 DC 01/25/18 01:42 5 MG Procedure Medications Ordered: Oxycodone, Percocet Homepack. ED Course 0037: Past medical records reviewed. The patient was evaluated in room B07. A complete history and physical exam was performed. 0119: Ordered Oxycodone HCl 5mg PO. The patient went for CT scan of the chest, abdomen/pelvis, and thoracic spine. 0323: Upon reevaluation, the patient is feeling better. I discussed findings and results with her. She verbalized agreement of the treatment plan. The patient was discharged home. 0400: Ordered Percocet 1 homepack PO. She was encouraged to [facility]. Medical Decision The patient is a 47 year old female who presents to the Emergency Department with constant upper back pain. Differential diagnosis includes compression fracture to the thoracic spine, intraabdominal trauma, contusion to the back, thoracic spine strain, rib fracture. Head Trauma GCS Score: 15 Medication Reconcilliation Current Medication List: was personally reviewed by me Blood Pressure Screening Patient's blood pressure: Normal blood pressure Blood pressure disposition: Did not require urgent referral Impression Primary Impression: Traumatic compression fracture of eleventh thoracic vertebra Scribe Attestation The scribe's documentation has been prepared under my direction and personally reviewed by me in its entirety. I confirm that the note above accurately reflects all work, treatment, procedures, and medical decision making performed by me. Departure Information Dispostion Home / Self-Care Referrals Malu Argueta, C.R.N.P (PCP) Forms HOME CARE DOCUMENTATION FORM, IMPORTANT VISIT INFORMATION Patient Instructions My [facility] Additional Instructions Rest. no strenuous activity until follow up percocet - 1 tab. every 6 hours for pain. Follow up with PCP and with [facility] Problem Qualifiers Primary Impression: Traumatic compression fracture of eleventh thoracic vertebra Encounter type: initial encounter Fracture type: closed Qualified Codes: S22.080A - Wedge compression fracture of t11-T12 vertebra, initial encounter for closed fracture
[2018-01-25] MEDS ORDERED: OPTIRAY 320 IV PRN (01:00)
[2018-01-25] MEDS ORDERED: OXYCODONE HCL IR 5 MG TAB (IMMEDIATE RELEASE) PO STA (01:19)
[2018-01-25] MEDS ORDERED: KLN/5 PO (02:22)
[2018-01-25] MEDS ORDERED: RIVA1TAB PO (02:22)
[2018-01-25] MEDS ORDERED: PERCOCET HOME PACK PO ONE (04:00)
[2018-01-25 04:12] VITALS: BP 110/72; PULSE 98; O2SAT 99
--- NOTE | 2018-01-25 07:37 | DIAGNOSTIC IMAGING REPORT ---
THORACIC SPINE WITHOUT HISTORY: 47 years-old Female reconsruct from chest ct acute mid to lower back pain status post fall COMPARISON: CT chest abdomen and pelvis of same day, lumbar spine radiographs 06/05/2016 TECHNIQUE: Multiple axial CT images of the thoracic spine were obtained without the use of IV contrast. A dose lowering technique was used consistent with the principals of CATRACHO. FINDINGS: Acute appearing 30% anterior endplate compression deformity of the T11 vertebral body with 2 mm retropulsion of the posterior superior endplate. No significant central canal or associated foraminal narrowing. Minimal associated paravertebral edema. No additional acute fracture or subluxation. Small posterior disc osteophyte complex relation at L1-L2 with mild multilevel spondylitic spurring and facet arthropathy. Intervertebral disc space narrowing is noted at C6-C7 with posterior disc osteophyte complex formation. Imaged ribs appear intact. Emphysematous changes about the imaged lungs. Bilateral bronchial wall thickening. Please see separately dictated CT chest, abdomen and pelvis of same day for further discussion. IMPRESSION: 1. Acute 30% anterior endplate compression deformity of the T11 vertebral body with only minimal retropulsion. No significant associated central canal or foraminal narrowing. 2. Mild multilevel spondylitic spurring with facet arthropathy. The above report was generated using voice recognition software. It may contain grammatical, syntax or spelling errors. Electronically signed by: Cedrick Cardenas M.D. 01/25/2018 7:36 AM Dictated Date/Time: 01/25/2018 7:31 AM
--- NOTE | 2018-01-25 07:50 | DIAGNOSTIC IMAGING REPORT ---
CHEST CT WITH CONTRAST; CT ABDOMEN AND PELVIS WITH IV CONTRAST ONLY HISTORY: Acute trauma the chest, abdomen and pelvis status post fall. Patient presents with acute mid back pain. eval for trauma - fall TECHNIQUE: Multiaxial CT images of the chest, abdomen and pelvis were performed following the intravenous administration of contrast. A dose lowering technique was utilized adhering to the principles of ALARA. COMPARISON: CT thoracic spine of same day. FINDINGS: CT CHEST: Homogeneous appearance of the thyroid. Scattered nonenlarged mediastinal lymph nodes are likely physiologic. No pathologically enlarged lymph nodes are identified. The heart is normal in size without pericardial effusion. Thoracic aorta is normal in both course and caliber. No thoracic aortic aneurysm or dissection. The imaged great vessels appear to be patent. Mild mixed plaquing about the descending thoracic aorta. The opacified pulmonary arterial tree appears unremarkable. No pneumothorax, focal airspace consolidation or pleural effusion. Mild dependent subsegmental bibasilar atelectasis. Mild bilateral bronchial wall thickening. Mild scattered areas of mosaic attenuation suggests associated air trapping. 3 mm nodule about the left lung base on image 160 series 4 suggests physiologic fissural lymph node. Additional likely benign 3 mm solid nodule left upper lobe, image 116 series 4. Linear pleural-based area of consolidation about the right middle lobe adjacent to the fissure suggests area of pleural-parenchymal scarring. Moderate upper lobe predominant centrilobular emphysema with biapical pleural-parenchymal scarring. Central airways appear patent. No suspicious pulmonary nodules or masses. Soft tissues and breast parenchyma appear to be within normal limits. Bones appear to be intact. No acute rib fracture identified. 30% anterior endplate compression deformity of the T11 vertebral body with 2 mm retropulsion of the superior aspect posterior endplate. No significant central canal or foraminal narrowing. Mild multilevel spondylitic spurring of the spine. CT ABDOMEN/PELVIS: Liver, gallbladder, spleen, pancreas and right adrenal gland are unremarkable. Mild thickening about the medial limb left adrenal gland with adjacent calcifications. Calcifications suggest prior infection or hemorrhage. 2.0 cm cyst about the interpolar right kidney. No renal calculi or obstructive uropathy. Ureters and bladder are unremarkable. Uterus and adnexa are within normal limits. Moderate mixed plaquing about the aorta without aneurysm. IVC appears unremarkable. Patent portal vein. There are no pathologically enlarged lymph nodes identified. No bowel obstruction. Mild rectal wall thickening with trace perirectal inflammatory stranding. Air-fluid level about the right hemicolon and terminal ileum. Appendix appears normal. No ascites. Soft tissues are within normal limits. Degenerative changes about the bilateral SI joints. Mild multilevel facet arthrosis. Mild intervertebral disc space narrowing at L4-L5. Mild lumbar dextroscoliosis. IMPRESSION: 1. Acute 30% anterior endplate compression deformity of the T11 vertebral body with only minimal retropulsion. No central canal or foraminal narrowing identified. 2. Moderate emphysema. 3. Mild circumferential rectal wall thickening with subtle perirectal inflammatory stranding. This could be correlated with clinical exam and possibly colonoscopy. 4. Air-fluid levels about the right hemicolon suggest diarrheal illness. 5. Additional findings as above. Electronically signed by: Cedrick Cardenas M.D. 01/25/2018 7:49 AM Dictated Date/Time: 01/25/2018 7:36 AM
== END 2018-01-25 04:14 | disposition home or self-care (01) ==
LOC: C.EDB 00:27
DX: S22.080A Wedge compression fracture of T11-T12 vertebra, initial encounter for closed fracture (principal); W10.9XXA Fall (on) (from) unspecified stairs and steps, initial encounter; Y92.018 Other place in single-family (private) house as the place of occurrence of the external cause; F32.9 Major depressive disorder, single episode, unspecified; E03.9 Hypothyroidism, unspecified; N28.9 Disorder of kidney and ureter, unspecified; F17.210 Nicotine dependence, cigarettes, uncomplicated; Z79.01 Long term (current) use of anticoagulants; Z79.899 Other long term (current) drug therapy; Z88.0 Allergy status to penicillin; Z88.8 Allergy status to other drugs, medicaments and biological substances

== ENCOUNTER 2024-01-12 11:09 | Inpatient (IN) ==
--- NOTE | 2024-01-08 09:40 | Anesthesiology Consultation ---
Date of Service January 08, 2024 Assessment & Plan (1) Encounter for pre-operative examination: - Per senior climate advisor on 01/07/24: No known infectious disease contacts, current infectious disease symptoms in past 10 days or COVID positive test result in the past 30 days. Chart Review Chart Review: Acceptable Risk for Surgery and Patient NOT seen in Pre Admission Testing History Surgery Operation Date: 01/12/24 13:20 Proposed Procedures p Laparoscopic Right Hemicolectomy - Vikas Oreilly, Height/Weight Height: 5 ft 2 in Weight: 51.256 kg Allergies Allergy/AdvReac Type Severity Reaction Status Date / Time Penicillins Allergy Intermediate RASH/HIVES Verified 01/07/24 11:24 ketorolac AdvReac Mild "SWEATS Verified 01/07/24 11:24 AND VOMITING" Medications Home Medications Medication Instructions Recorded Confirmed Last Taken acetaminophen 325 mg tablet 325 mg PO PRN PRN Pain 12/21/18 01/07/24 Unknown bupropion HCl 300 mg 24 hr tablet, 300 mg PO QAM 12/21/18 01/07/24 12/24/23 extended release trazodone 50 mg tablet 50 mg PO HS PRN Insomnia 12/21/18 01/07/24 Unknown lurasidone 80 mg tablet 160 mg PO QPM 07/14/19 01/07/24 12/24/23 citalopram 20 mg tablet (Celexa) 20 mg PO QAM 09/23/23 01/07/24 12/24/23 umeclidinium 62.5 mcg-vilanterol 1 inh inhalation DAILY #60 ea 10/20/23 01/07/24 12/24/23 25 mcg/actuation powdr for inhalation (Anoro Ellipta) multivitamin 1 tab PO DAILY 01/07/24 01/07/24 Unknown ondansetron 4 mg disintegrating 4 mg PO Q8H PRN nausea and 01/07/24 01/07/24 Unknown tablet vomiting 4 days #20 tabs Past Medical History Medical History (Updated 01/08/24 @ 09:35 by Zari Phelan PA-C) Abnormal CT scan, chest (11/2023) Abnormal PFTs (11/2023) Anxiety and depression Atherosclerosis of aorta no caridologist COPD (chronic obstructive pulmonary disease) well controlled w/ daily inhaler use, states does not use prn inhaler, follows with pulm [facility] Emphysema lung H/O degenerative disc disease Hx of compression fracture of spine chronic compression deformity of T9 and T11. Hx of deep venous thrombosis (2019) Hx DVT x 1. treated with anticoagulation for ~1 year, then stopped anticoagulation Osteopenia Primary adenocarcinoma of ascending colon and hepatic flexure Slow to wake up after anesthesia had been on klonopin at the time, tolerated recent colonoscopy well Spinal stenosis Past Family History Family History Father Colon cancer Mother Colon cancer Other No family history of adverse response to anesthesia Past Surgical History Surgical History History of D&C History of tubal ligation Hx of colonoscopy (12/2023) Hx of decompressive lumbar laminectomy Social History Smoking Status: Former smoker tobacco type: cigarettes Smoking cigarettes per day: 10-15 cig per day Do You Dip or Chew Tobacco: No Smoking End Date: October 01, 2023 (06/03 ppd) Hx Alcohol Use: No Hx Substance Use: No substance use type: does not use Lab Results Anesthesia Preop Results Results Anesthesia Widget: WBC 7.12 K/ul (4.8-10.8) 01/07/24 Hgb 12.9 g/dl (12.0-16.0) 01/07/24 Hct 40.0 % (37.0-47.0) 01/07/24 Plt 392 K/uL (130-400) 01/07/24 Na 136 mmol/L (136-145) 01/07/24 K 4.5 mmol/L (3.5-5.1) 01/07/24 Cl 101 mmol/L (98-107) 01/07/24 CO2 27 mmol/L (21-32) 01/07/24 BUN 17 mg/dl (6-23) 01/07/24 Creat 1.06 mg/dl (0.6-1.2) 01/07/24 Glucose Level 75 mg/dl (70-99(Fasting)) 01/07/24 Testing Electrocardiogram Date: 01/07/24 NSR, rate 73 bpm Chest X-Ray Date: 09/23/23 Equivocal 8 mm left upper lobe nodule. This may be artifactual however a chest CT is recommended. Pulmonary Function Test Date: 11/30/23 Moderate airflow obstruction. Other Testing Chest CT 12/26/23 1. Emphysema with mild likely infectious or inflammatory bronchiolitis of the right lower lobe. 2. No lymphadenopathy or evidence of metastatic disease. 3. Low suspicion subcentimeter solid nodules of the lungs measure up to 5 mm. 4. Please refer to the same day CT abdomen and pelvis study of same day for additional findings. Abdomen pelvis CT 12/26/23 1. A 3.5 cm area of masslike thickening within the hepatic flexure of the colon which is highly suspicious for a colonic mass. Colonoscopy can be performed for confirmation if not already performed. 2. No evidence for metastatic disease within the abdomen or pelvis. 3. Cholelithiasis. 4. A subacute mild superior endplate compression fracture at L3. 5. Additional findings as described above.
[2024-01-12] MEDS: LR 15ML/HR IV SCH (11:49)
[2024-01-12] MEDS: metroNIDAZOLE 500 MG/100 ML BAG IV SCH ×2 (11:50→19:29)
[2024-01-12] MEDS ORDERED: GLYCOPYRROLATE 0.2 MG/ML VIAL ONE (12:47)
[2024-01-12] MEDS ORDERED: MIDAZOLAM HCL 1 MG/ML 2ML VIAL ONE (12:47)
[2024-01-12] MEDS ORDERED: DEXAMETHASONE SOD INJ 4 MG/ML VIAL ONE (12:47)
[2024-01-12] MEDS ORDERED: ROCURONIUM BROMIDE 10 MG/ML 5 ML VIAL IV ONE (12:47)
[2024-01-12] MEDS ORDERED: PROPOFOL IV EMULSION 10 MG/ML 20 ML VIAL IV ONE (12:47)
[2024-01-12] MEDS ORDERED: ONDANSETRON INJ 2 MG/ML 2 ML VIAL ONE (12:47)
[2024-01-12] MEDS ORDERED: LIDOCAINE 2% 2 ML VIAL/AMP(20MG/ML) INFIL ONE (12:47)
[2024-01-12] MEDS ORDERED: fentaNYL citrate PF 100 MCG/2 ML VIAL ONE ×2 (12:48→13:34)
[2024-01-12] MEDS ORDERED: SUGAMMADEX SODIUM 200 MG/2 ML VIAL IV ONE (12:48)
[2024-01-12] MEDS ORDERED: ePHEDrine sulfate 50 MG/ML AMP IV PRN (12:53)
[2024-01-12] MEDS ORDERED: ATROPINE SULFATE 0.1 MG/ML 10ML SYR IV PRN (12:53)
[2024-01-12] MEDS ORDERED: ONDANSETRON INJ 2 MG/ML 2 ML VIAL IV PRN (12:53)
--- NOTE | 2024-01-12 12:54 | History & Physical Bridge Note ---
Date of Service January 12, 2024 History & Physical Bridge Note I have examined the patient, reviewed the History & Physical and in the interval since the performance of the History & Physical I have noted the following changes of clinical significance: no changes noted
[2024-01-12] MEDS: CIPROFLOXACIN / D5W 400 MG/200 ML BAG IV SCH (13:06)
[2024-01-12] MEDS ORDERED: PHENYLEPHRINE 100MCG/ML 10ML SYR IV ONE (14:07)
[2024-01-12] MEDS: BUPIVACAINE/EPINEPHRINE 0.5% MPF 1:200,000 30 ML VIAL ONE (14:45)
--- NOTE | 2024-01-12 14:58 | Operative Report ---
PG Post Operative Report Pre & Post Diagnosis Operation Date: 01/12/24 12:50 Pre-Op Diagnosis: Primary Adenocarcinoma of Ascending Colon Post-Op Diagnosis: Primary Adenocarcinoma of Ascending Colon I identified the patient and participated in the time-out.: Yes Procedure Operation Date: 01/12/24 12:50 Actual Procedures p Laparoscopic Right hemicolectomy; partial omentectomy(Not Applicable) - Vikas Oreilly DO Surgeon Vikas Oreilly DO Utility Bill Collector zander caldwell Estimated Blood Loss 5 Findings Consistent with Post-Op Diagnosis Specimens terminal ileum, right colon, portion of transverse colon, portion of ementum Description of Procedure After informed consent was obtained the patient was taken to the operating room and placed in supine position. After successful intubation the abdomen was sterilely prepped and draped in usual fashion. I began with an infraumbilical incision with an 11 blade scalpel. This was carried down through the soft tissue using cautery. Anterior fascia was opened using cautery and two #0 Vicryl stay sutures were placed. Peritoneum was elevated using hemostats and incised under direct vision using a Metzenbaum scissor. Finger sweep was performed. A 12 mm Quintero trocar was placed and the abdomen was insufflated to 18 mmHg. Laparoscope was inserted and the abdomen examined in 360 degrees. I could readily identify the tattoo gladys on the proximal transverse colon. I placed a suprapubic 5 mm port, a left lower quadrant 12 mm port, and eventually an upper midline 5 mm port. The patient was placed in a Trendelenburg position and slightly airplaned to the left. There was no evidence anywhere of metastatic disease. Liver and peritoneal surfaces all appeared normal. I was able to begin by mobilizing the cecum and right colon along the white line of Toldt using primarily blunt dissection with small amounts of harmonic scalpel. Next, I made a small window in the mesentery of the terminal ileum. A ADRIAN 60 mm brown cartridge stapler was used to transect the terminal ileum. Next I identified a portion of the transverse colon just proximal to the middle colic vessels. I created a small window in the mesentery of the transverse colon and transected it also using a ADRIAN brown cartridge linear staplers. I then used blunt dissection and harmonic scalpel to take down the attachments of the hepatic flexure. I was able to identify the duodenum during this process to keep it out of harm's way. Once it was fully mobilized I then took down the mesentery of the proximal transverse and right colon staying as low as possible. I used the harmonic scalpel primarily for this although I did staple off the right colic artery with a ADRIAN brown cartridge stapler. Once I had the right colon terminal ileum and proximal transverse colon completely detached I then grasped the staple line of the transverse colon as well as the staple line of the terminal ileum and brought them into the upper midline. Next I desufflated the abdomen. The upper midline incision was elongated laterally and medially including the fascia. I was then able to extract the specimen and send it to pathology. Next we delivered the distal transverse colon as well as the stapled small bowel out through this fascial opening. There was some associated omentum which was slightly thickened and irregular and I therefore decided to perform partial omentectomy. We removed probably half of the omentum using the harmonic scalpel and sent it with the specimen. Next we performed a [id number] small bowel to transverse colon anastomosis using a ADRIAN brown cartridge 60 mm stapler. A TA 60 device was used to close the common enterotomy. At this point we changed our gloves. 3-[address] a crotch stitch. I also used 3- 0 silk to imbricate the staple lines using Lembert technique. At this point we placed the anastomosis back into the abdominal cavity. I closed the fascia usi ng #1 PDS in running fashion. At this point we re-insufflated the abdomen. I evaluated the anastomosis which was widely patent with no evidence of ischemia. There was adequate hemostasis. Anastomosis was not twisted. A final look around the abdomen showed no other abnormalities. We irrigated the upper abdomen. All the trocars were removed and the abdomen desufflated. The fascia of the camera port as well as the left lower quadrant fascia was closed using 0 Vicryl in [id number] fashion. All the wounds were irrigated. The larger incision was closed using 3-0 Vicryl for deep layers and 4-0 Monocryl for skin. Trocar sites were all closed using 4-0 Monocryl. Marcaine with epinephrine was injected around them for postoperative analgesia. Benzoin Steri-Strips gauze and tape was used as a dressing. The patient was awakened, extubated and transferred to recovery in stable condition. My nurse practitioner was present through the entire case and was instrumental in assisting with providing exposure, running the camera, assisting with the anastomosis, wound closure and dressing placement. I attest to the content of the Intraoperative Record and any orders documented therein. Any exceptions are noted below.
[2024-01-12] MEDS: fentaNYL citrate PF 100 MCG/2 ML VIAL IV PRN (15:09)
[2024-01-12] MEDS: HYDROmorphone INJ 1 MG/ML SYRINGE IV PRN (15:32)
[2024-01-12] MEDS: HYDROmorphone INJ 1 MG/ML SYRINGE ONE (15:34)
--- NOTE | 2024-01-12 15:58 | Anesthesiology Progress Note ---
Date of Service January 12, 2024 Anesthesia Post Procedure Vital Signs Vital Signs: Temp Pulse Pulse Resp BP Pulse Ox O2 Del Method 01/12/24 15:55 36.8 C 75 9 L 128/79 94 Room Air 01/12/24 15:45 77 11 L 136/82 95 Room Air 01/12/24 15:35 75 10 L 139/84 95 Room Air 01/12/24 15:25 78 11 L 138/83 97 Room Air 01/12/24 15:15 80 11 L 136/89 100 Oxymask 01/12/24 15:05 79 13 142/80 H 100 Oxymask 01/12/24 14:56 36.1 C L 83 11 L 144/96 H 100 Oxymask 01/12/24 11:31 37 C 80 21 116/71 98 Room Air O2 Flow Rate 01/12/24 15:55 01/12/24 15:45 01/12/24 15:35 01/12/24 15:25 01/12/24 15:15 5 01/12/24 15:05 11 01/12/24 14:56 11 01/12/24 11:31 Pain Intensity Abdomen: Pain Intensity: 3 Transfer of Care Handoff Completed per policy Notes Mental Status: alert / awake / arousable Patient Amnestic to Procedure: Yes Nausea / Vomiting: adequately controlled Pain: adequately controlled Airway Patency, RR, SpO2: stable & adequate BP & HR: stable & adequate Hydration State: stable & adequate Anesthetic Complications: no major complications apparent
[2024-01-12] MEDS ORDERED: ACETAMINOPHEN 325 MG TAB PO PRN (16:18)
[2024-01-12] MEDS ORDERED: traZODone HCL 50 MG TAB PO PRN (16:18)
[2024-01-12] MEDS ORDERED: MoRPHine SULFATE 4 MG/ML 1 ML CARP\\VIAL IV PRN (16:18)
[2024-01-12] MEDS: LACTATED RINGER'S 1,000 ML IV SCH (16:40)
[2024-01-12] MEDS: ACETAMINOPHEN 1,000 MG/100 ML VIAL IV SCH (16:40)
[2024-01-12] MEDS: MoRPHine SULFATE 2 MG/ML CARP IV PRN (16:55)
[2024-01-12] MEDS: oxyCODONE HCL IR 5 MG TAB (IMMEDIATE RELEASE) PO PRN (19:24)
[2024-01-12] MEDS: CIPROFLOXACIN / D5W 200 MG/100 ML BAG IV SCH (20:35)
[2024-01-12] MEDS: LURASIDONE HCL 20 MG TAB PO SCH (20:36)
[2024-01-13] MEDS: CITALOPRAM 20 MG TAB PO SCH (07:39)
[2024-01-13] MEDS: buPROPion XL 300 MG TABCR PO SCH (07:39)
[2024-01-13 08:17] LABS: Basophils # (auto) 0.01 K/uL (0.00-0.20); Basophils % (auto) 0.1 %; Hematocrit (blood only) 30.9 % (37.0-47.0); Hemoglobin 10.4 g/dl (12.0-16.0); Immature Granulocytes # (auto) 0.03 K/uL (0.01-0.20); Immature Granulocytes % (auto) 0.3 %; Lymphocytes # (auto) 1.43 K/uL (1.20-3.40); Lymphocytes % (auto) 13.6 %; Mean Corpuscular Hgb Conc 33.7 g/dL (32.0-36.0); Mean Corpuscular Volume 83.3 fL (80.0-100.0); Mean Platelet Volume 8.4 fL (9.4-12.4); Monocytes # (auto) 0.84 K/uL (0.11-0.59); Neutrophils # (auto) 8.23 K/uL (1.40-6.50); Platelet Count 286 K/uL (130-400); RDW Coefficient of Variation 14.1 % (11.5-14.5); RDW Standard Deviation 43.4 fL (36.4-46.3); Red Blood Count 3.71 M/uL (4.20-5.40); White Blood Count 10.54 K/ul (4.8-10.8)
--- NOTE | 2024-01-13 08:36 | Surgery Progress Note ---
Date of Service January 13, 2024 Assessment & Plan (1) Status post right hemicolectomy: Plan: POD 1 laparoscopic R Hemicolectomy Pain tolerable with po oxycodone and IV Tylenol tolerating clears, no n/v , +mild belching No flatus or BM . will keep on clears until return for bowel function Remove serrano cath this AM Get OOB to chair Encourage ambulation as tolerated WBC wnl , VSS CMP pending will monitor Dressing CDI , gauze +medipore tape Admission and Anticipated Discharge Date Admission Date: January 12, 2024 Subjective denies n/v , cp, sob, flatus , bm +abd pain Review of Systems Constitutional: no fever and no chills Eyes: + corrective lenses Ear, Nose, Mouth, Throat: no hearing loss Respiratory: no dyspnea Cardiovascular: no chest pain Gastrointestinal: + abdominal pain and + belching; no bloa ting, no nausea and no vomiting Musculoskeletal: no muscle weakness Psychiatric: no confusion Physical Exam Constitutional: well developed, cooperative and comfortable; no acute distress Respiratory: normal respiratory effort and able to speak in complete sentences; no respiratory distress Cardiovascular: Rate/Rhythm: regular rate Gastrointestinal (Abdomen): Inspection/Auscultation: + abdominal surgical incision (CDI); abdomen not distended Percussion/Palpation: abdomen soft Musculoskeletal: no cyanosis or clubbing, extremities motor strength 5/5 Psychiatric: A+Ox3, euthymic affect Results & Data Vital Signs (Past 12 Hours) Vital Signs Temp Pulse Resp BP Pulse Ox O2 Del Method 01/13/24 07:00 98.1 F 71 20 108/70 94 Room Air 01/13/24 03:23 98.8 F 72 18 108/70 95 Room Air 01/12/24 23:00 98.1 F 82 18 117/72 93 Room Air Results CBC w Diff Results: RBC 3.79 M/uL (4.20-5.40) L 01/14/24 WBC 10.43 K/ul (4.8-10.8) 01/14/24 Hgb 10.5 g/dl (12.0-16.0) L 01/14/24 Hct 31.8 % (37.0-47.0) L 01/14/24 MCV 83.9 fL (80.0-100.0) 01/14/24 MCH 27.7 pg (25.0-34.0) 01/14/24 MCHC 33.0 g/dL (32.0-36.0) 01/14/24 RDW Standard Deviation 43.9 fL (36.4-46.3) 01/14/24 RDW Coefficient of Variation 14.4 % (11.5-14.5) 01/14/24 Plt Count 298 K/uL (130-400) 01/14/24 MPV 8.8 fL (9.4-12.4) L 01/14/24 Neutrophils (%) (Auto) 66.7 % 01/14/24 Lymphocytes (%) (Auto) 24.4 % 01/14/24 Monocytes # (Auto) 0.77 K/uL (0.11-0.59) H 01/14/24 Eosinophils # (Auto) 0.09 K/uL (0.00-0.50) 01/14/24 Immature Granulocyte % (Auto) 0.2 % 01/14/24 Neutrophils # (Auto) 6.96 K/uL (1.40-6.50) H 01/14/24 Lymphocytes # (Auto) 2.55 K/uL (1.20-3.40) 01/14/24 Monocytes # (Auto) 0.77 K/uL (0.11-0.59) H 01/14/24 Eosinophils # (Auto) 0.09 K/uL (0.00-0.50) 01/14/24 Basophils # (Auto) 0.04 K/uL (0.00-0.20) 01/14/24 Immature Granulocyte # (Auto) 0.02 K/uL (0.01-0.20) 4 PG Care Time/CCT Total # of Minutes Spent Total Time Spent with Patient: Total time spent is greater than 50% in coordination of care (as documented) at patient's floor/unit and/or counseling patient: Coding Level of Care Code 20268 Post Operative Follow-Up Diagnoses Status post right hemicolectomy Z90.49
[2024-01-13 08:43] LABS: Albumin Globulin Ratio 1.2 (0.9-2); Albumin Level 3.2 gm/dl (3.4-5.0); BUN Creatinine Ratio 9.4 (10-20); Bilirubin,Total 0.5 mg/dl (0.2-1.0); Calcium 8.4 mg/dl (8.6-10.3); Creatinine Clr Calc Pharmacy 78.2 ml/min; Est GFR (African American) 116.4 ml/min; Est GFR (Non-African American) 100.5 ml/min; Globulin 2.6 gm/dl (2.5-4.0); Potassium 3.8 mmol/L (3.5-5.1); Total Protein 5.8 gm/dl (6.0-8.3)
[2024-01-13] MEDS: UMECLIDINIUM/VILANTEROL 62.5/25MCG 7 PUFFS/INHALER INH SCH (09:21)
[2024-01-14] MEDS: oxyCODONE HCL IR 5 MG TAB (IMMEDIATE RELEASE) PO PRN (03:26)
[2024-01-14] MEDS: ONDANSETRON INJ 2 MG/ML 2 ML VIAL IV PRN (07:38)
[2024-01-14] MEDS: ENOXAPARIN INJ 40 MG/0.4 ML SYR SQ SCH (08:01)
[2024-01-14 08:07] LABS: Basophils # (auto) 0.04 K/uL (0.00-0.20); Basophils % (auto) 0.4 %; Eosinophils # (auto) 0.09 K/uL (0.00-0.50); Eosinophils % (auto) 0.9 %; Hematocrit (blood only) 31.8 % (37.0-47.0); Hemoglobin 10.5 g/dl (12.0-16.0); Immature Granulocytes # (auto) 0.02 K/uL (0.01-0.20); Immature Granulocytes % (auto) 0.2 %; Lymphocytes # (auto) 2.55 K/uL (1.20-3.40); Lymphocytes % (auto) 24.4 %; Mean Corpuscular Hemoglobin 27.7 pg (25.0-34.0); Mean Corpuscular Volume 83.9 fL (80.0-100.0); Mean Platelet Volume 8.8 fL (9.4-12.4); Monocytes # (auto) 0.77 K/uL (0.11-0.59); Monocytes % (auto) 7.4 %; Neutrophils # (auto) 6.96 K/uL (1.40-6.50); Neutrophils % (auto) 66.7 %; Platelet Count 298 K/uL (130-400); RDW Coefficient of Variation 14.4 % (11.5-14.5); RDW Standard Deviation 43.9 fL (36.4-46.3); Red Blood Count 3.79 M/uL (4.20-5.40); White Blood Count 10.43 K/ul (4.8-10.8)
[2024-01-14 08:22] LABS: Albumin Globulin Ratio 1.2 (0.9-2); Albumin Level 3.2 gm/dl (3.4-5.0); BUN Creatinine Ratio 6.3 (10-20); Bilirubin,Total 0.4 mg/dl (0.2-1.0); Calcium 8.4 mg/dl (8.6-10.3); Creatinine Clr Calc Pharmacy 79.5 ml/min; Globulin 2.7 gm/dl (2.5-4.0); Potassium 3.3 mmol/L (3.5-5.1); Total Protein 5.9 gm/dl (6.0-8.3)
--- NOTE | 2024-01-14 08:24 | Surgery Progress Note ---
Date of Service January 14, 2024 Assessment & Plan (1) Status post right hemicolectomy: Plan pod 2 doing well will try full liquids path pending. possible d/c tomorrow though likely will be friday. add lovenox for dvt prevention Admission and Anticipated Discharge Date Admission Date: January 12, 2024 Subjective pt seen. +bm. loose. pain control adequate. no emesis. occ nausea associated with pain. Physical Exam Physical Exam: alert. comfortable. no acute distress. incisions all look good. Results & Data Vital Signs (Past 12 Hours) Vital Signs Temp Pulse Resp BP Pulse Ox O2 Del Method 01/14/24 07:51 Room Air 01/14/24 07:04 36.9 C 66 16 145/91 H 95 Room Air 01/13/24 20:28 36.9 C 69 18 121/76 96 Room Air PG Care Time/CCT Total # of Minutes Spent Total Time Spent with Patient: Total time spent is greater than 50% in coordination of care (as documented) at patient's floor/unit and/or counseling patient: Coding Level of Care Code 13073 Post Operative Follow-Up Diagnoses Status post right hemicolectomy Z90.49
[2024-01-15] MEDS ORDERED: Nursing to Pharmacy Communication SCH (02:45)
[2024-01-15 06:56] LABS: Basophils # (auto) 0.04 K/uL (0.00-0.20); Basophils % (auto) 0.4 %; Eosinophils # (auto) 0.22 K/uL (0.00-0.50); Eosinophils % (auto) 2.2 %; Hematocrit (blood only) 32.6 % (37.0-47.0); Hemoglobin 11.1 g/dl (12.0-16.0); Immature Granulocytes # (auto) 0.05 K/uL (0.01-0.20); Immature Granulocytes % (auto) 0.5 %; Lymphocytes # (auto) 1.89 K/uL (1.20-3.40); Mean Corpuscular Hemoglobin 28.2 pg (25.0-34.0); Mean Corpuscular Volume 82.7 fL (80.0-100.0); Mean Platelet Volume 8.4 fL (9.4-12.4); Monocytes # (auto) 0.66 K/uL (0.11-0.59); Monocytes % (auto) 6.6 %; Neutrophils # (auto) 7.07 K/uL (1.40-6.50); Neutrophils % (auto) 71.3 %; Platelet Count 311 K/uL (130-400); RDW Coefficient of Variation 14.2 % (11.5-14.5); RDW Standard Deviation 42.9 fL (36.4-46.3); Red Blood Count 3.94 M/uL (4.20-5.40); White Blood Count 9.93 K/ul (4.8-10.8)
[2024-01-15 07:04] LABS: Albumin Globulin Ratio 1.1 (0.9-2); Albumin Level 3.2 gm/dl (3.4-5.0); BUN Creatinine Ratio 4.8 (10-20); Bilirubin,Total 0.4 mg/dl (0.2-1.0); Calcium 8.6 mg/dl (8.6-10.3); Creatinine Clr Calc Pharmacy 79.5 ml/min; Globulin 2.8 gm/dl (2.5-4.0); Potassium 3.5 mmol/L (3.5-5.1)
[2024-01-15] MEDS: POTASSIUM CHLORIDE / WTR 10 MEQ/100 ML PLCT IV SCH (08:00)
--- NOTE | 2024-01-15 08:31 | Surgery Progress Note ---
Date of Service January 15, 2024 Assessment & Plan (1) Status post right hemicolectomy: Plan: doing well. pod 3 path still pending keep on fulls for now. awaiting full return of bowel fx possible d/c tomorrow (2) Primary adenocarcinoma of ascending colon and hepatic flexure: Admission and Anticipated Discharge Date Admission Date: January 12, 2024 Subjective pt seen. feeling well. mild nausea. no further bm. dudley fulls. pain controlled. Physical Exam Physical Exam: alert. nad. incsions look good. non-distended Results & Data Vital Signs (Past 12 Hours) Vital Signs Temp Pulse Resp BP Pulse Ox O2 Del Method 01/15/24 07:09 37 C 70 16 152/90 H 96 Room Air 01/15/24 07:00 Room Air 01/14/24 20:30 Room Air PG Care Time/CCT Total # of Minutes Spent Total Time Spent with Patient: Total time spent is greater than 50% in coordination of care (as documented) at patient's floor/unit and/or counseling patient: Coding Level of Care Code 84985 Post Operative Follow-Up Diagnoses Status post right hemicolectomy Z90.49 Primary adenocarcinoma of ascending colon and hepatic flexure C18.2; C18.3
[2024-01-16 06:29] LABS: Basophils # (auto) 0.04 K/uL (0.00-0.20); Basophils % (auto) 0.4 %; Eosinophils # (auto) 0.35 K/uL (0.00-0.50); Eosinophils % (auto) 3.3 %; Hemoglobin 13.4 g/dl (12.0-16.0); Immature Granulocytes # (auto) 0.03 K/uL (0.01-0.20); Immature Granulocytes % (auto) 0.3 %; Lymphocytes # (auto) 1.55 K/uL (1.20-3.40); Lymphocytes % (auto) 14.5 %; Mean Corpuscular Hemoglobin 27.7 pg (25.0-34.0); Mean Corpuscular Hgb Conc 33.5 g/dL (32.0-36.0); Mean Corpuscular Volume 82.8 fL (80.0-100.0); Mean Platelet Volume 8.6 fL (9.4-12.4); Monocytes # (auto) 0.69 K/uL (0.11-0.59); Monocytes % (auto) 6.5 %; Neutrophils # (auto) 8.02 K/uL (1.40-6.50); Platelet Count 368 K/uL (130-400); RDW Coefficient of Variation 14.4 % (11.5-14.5); RDW Standard Deviation 43.6 fL (36.4-46.3); Red Blood Count 4.83 M/uL (4.20-5.40); White Blood Count 10.68 K/ul (4.8-10.8)
[2024-01-16 06:45] LABS: Albumin Globulin Ratio 1.2 (0.9-2); Albumin Level 3.5 gm/dl (3.4-5.0); BUN Creatinine Ratio 5.1 (10-20); Bilirubin,Total 0.5 mg/dl (0.2-1.0); Calcium 9.2 mg/dl (8.6-10.3); Creatinine Clr Calc Pharmacy 63.4 ml/min; Est GFR (African American) 97.7 ml/min; Est GFR (Non-African American) 84.3 ml/min; Potassium 4.1 mmol/L (3.5-5.1); Total Protein 6.5 gm/dl (6.0-8.3)
--- NOTE | 2024-01-16 07:46 | Surgery Progress Note ---
Date of Service January 16, 2024 Assessment & Plan (1) Status post right hemicolectomy: Plan: POD#4 R hemicolectomy Overall feeling well. Vital signs are stable Tolerating fulls, wants to try more to eat BM 2 day ago Incisions c/d/i, abdomen soft Ambulating well Will advance to low fiber, if goes well can consider dispo F/u in the office with Dr. Oreilly in 7-10 days Admission and Anticipated Discharge Date Admission Date: January 12, 2024 Subjective Pt feeling well overall. Nausea is controlled and mild. She is tolerating a full liquid diet without any worsening symptoms. Had BM 2 days ago. Has been ambulating. Is eager to be discharged. Physical Exam Physical Exam: awake/alert, no distress Respiratory: normal respiratory effort Gastrointestinal (Abdomen): Inspection/Auscultation: + abdominal surgical incision (c/d/i with steri strips) Percussion/Palpation: abdomen soft Results & Data Vital Signs (Past 12 Hours) Vital Signs Temp Pulse Resp BP Pulse Ox O2 Del Method 01/15/24 21:15 98.2 F 72 16 127/84 94 Room Air PG Care Time/CCT Total # of Minutes Spent Total Time Spent with Patient: Total time spent is greater than 50% in coordination of care (as documented) at patient's floor/unit and/or counseling patient: Coding Level of Care Code 05809 Post Operative Follow-Up Diagnoses Status post right hemicolectomy Z90.49
[2024-01-16 08:00] VITALS: BP 106/78; PULSE 94; RESP 19; TEMP 98.7; O2SAT 92
--- NOTE | 2024-01-20 11:57 | Discharge Summary ---
Date of Service January 16, 2024 Principal Diagnosis adenocarcinoma of ascending colon and hepatic flexure s/p R hemicolectomy Discharge Exam awake/alert, no distress Respiratory normal respiratory effort Gastrointestinal (Abdomen) Inspection/Auscultation: + abdominal surgical incision (c/d/i with steri strips) Percussion/Palpation: abdomen soft Discharge Data Allergies Allergy/AdvReac Type Severity Reaction Status Date / Time Penicillins Allergy Intermediate RASH/HIVES Verified 01/12/24 11:28 pollen extracts Allergy Unknown Unknown Verified 01/12/24 11:28 ketorolac AdvReac Mild "SWEATS Verified 01/12/24 11:28 AND VOMITING" Procedures Performed Operation Date: 01/12/24 12:50 Actual Procedures p Laparoscopic Resection of Portion of Omentum,Terminal Ileum, Cecum, Right Colon and Portion of Transverse Colon with Re-anastamosis(Not Applicable) - Vikas Oreilly, Hospital Course (1) Primary adenocarcinoma of ascending colon and hepatic flexure: This is a 53yF with a diagnosis of colon cancer who presented to the [facility] on 01/12/24 for an elective R hemicolectomy with Dr. Oreilly. The patient tolerated the procedure well, see op note for full details. The patient recovered in the PACU and was transferred to the med/surg unit in stable condition. Post op serrano was removed and she was able to void without issues. Her pain was controlled with prn pain medications. As her bowel function returned her diet was slowly advanced as tolerated from clears to fulls to eventual low fiber. Daily Lovenox was used for DVT prophylaxis and ambulation encouraged. Incisions remained c/d/i without signs of infection. On POD#4 the patient was deemed stable for discharge to home on a low fiber diet with instructions to follow up in the office within 2 weeks. (2) Status post right hemicolectomy: Total Time Total Time Spent Total Time Spent (In Minutes): 15 Discharge Plan Discharge Items Patient Disposition: Home - Self-Care Reason For Visit: Primary Adenocarcinoma of Ascending Colon Discharge Diagnosis: Laparoscopic Right Hemicolectomy Activity: As commented below Lifting: No more than 10 pounds Bathing Comment: You can shower 01/15/24. No soaking in pools or baths for 2 weeks Exercise/Sports: Wait until after follow-up appointment Driving/Machine Use: Wait until follow up Non-emergency contact: Surgeon Call non-emergency contact if: you have any medication questions, your symptoms worsen, you have a fever, your temperature is above 101.5, your wound has increased redness, your wound has increased drainage and your wound pain has increased Follow-up/Referrals: Vikas Oreilly DO [Surgeon] - (call office for a follow up in 2 weeks ) Zain Diaz DO [Primary Care Provider] - Diet: Low Fiber Diet Comment: Low fiber Addtl Attending Provider Instructions: . You will have small white bandages called steri strips that are over your incision. You may shower with these on. They will tend to fall off on their own in a 7-10 days. Continue a low fiber diet for the next few weeks You may purchase Tylenol and/or Ibuprofen over the counter if needed for additional pain control over the next few days. Take per manufacturers instructions Pending Studies at Discharge: Yes Studies:: surgical pathology Stand-Alone Forms: My [facility] Medications and DC Order Prescriptions: New oxycodone 5 mg tablet 5 - 10 mg PO .[id number] PRN (Reason: pain, for initial therapy, max 6 tabs per day) Qty: 15 0RF Continued bupropion HCl 300 mg tablet extended release 24 hr 300 mg PO QAM trazodone 50 mg tablet 50 mg PO HS PRN (Reason: Insomnia) acetaminophen 325 mg tablet 325 mg PO PRN PRN (Reason: Pain) lurasidone 80 mg tablet 160 mg PO QPM multivitamin Tablet 1 tab PO DAILY ondansetron 4 mg tablet,disintegrating 4 mg PO Q8H PRN (Reason: nausea and vomiting) 4 Days Qty: 20 0RF Anoro Ellipta 62.5-25 mcg/actuation blister with device 1 inh inhalation DAILY Qty: 60 5RF citalopram [Celexa] 20 mg tablet 20 mg PO QAM Discharge Orders: Discharge Order (Routine); Ordered 01/16/24 Ordered By: Sonal Freire Admission Data Admit Date/Time: 01/12/24 15:01 Attending Provider: Vikas Oreilly Admit Provider: Vikas Oreilly Primary Care Provider: Zain Diaz Other Interventions: Discharge Summary Assessment (RN) Last Done: 01/16/24 10:23 Coding Level of Care Code 37865 IN/OBS DISCH 30 MIN/LESS Diagnoses Primary adenocarcinoma of ascending colon and hepatic flexure C18.2; C18.3 Status post right hemicolectomy Z90.49
== END 2024-01-16 11:39 | disposition home or self-care (01) | DRG 329 ==
LOC: ASU 11:09 → 3N 15:01 → 3W 01-13 14:53

== ENCOUNTER 2024-07-08 10:54 | Inpatient (IN) ==
--- NOTE | 2024-07-08 11:36 | Emergency Department Note ---
Impression & Plan Acute right flank pain, Acute urinary retention, Sacral fracture, Fall, Leukocytosis ED Provider Note NAME: CLEO RODGERS AGE: 53 SEX: F : 1970 ARRIVES VIA: Ambulance INFORMANT: [Patient] ED PROVIDER(S): [Alex Marie MD] CHIEF COMPLAINT: Flank pain HISTORY OF PRESENT ILLNESS: The patient is a 53-year-old female who states that she did fall about 3 weeks ago. She is undergoing treatment for colon cancer. The patient states that this morning, she was unable to move her urine. She felt fullness and some right flank pain. She presents for evaluation. She has not had fever, no nausea or vomiting, no chills. No history of frequent UTI. She has no history of kidney stones. She has never had issues with urination previously. She states that last night, she was able to urinate without difficulty. Of note, as per our nursing staff, a bladder scan returned with results of over 800 cc. PMHx/PSHx/Social Hx: See Below PHYSICAL EXAM: GENERAL: Patient is in no acute distress. HEENT: No acute trauma, normocephalic atraumatic, mucous membranes moist, no nasal congestion. NECK: No stridor, no adenopathy, no meningismus, trachea is midline. LUNGS: Clear to auscultation bilaterally, no wheeze, no rhonchi, breath sounds equal. HEART: Without murmurs gallops or rubs, regular rate and rhythm. ABDOMEN: Soft, somewhat tender in the area of the mid pelvis/bladder. EXTREMITIES: No cyanosis, full range of motion of all the joints without pain or difficulty. NEUROLOGIC: Oriented x 3, no acute motor or sensory deficits, no focal weakness. SKIN: No jaundice, no diaphoresis. DIFFERENTIAL DIAGNOSIS: UTI, hydronephrosis, urinary retention, urinary obstruction, renal failure, renal stone, among others. EMERGENCY DEPARTMENT PROCEDURES: MEDICAL DECISION MAKING: There is a moderate leukocytosis, this could be consistent with infection or just the stress of her current situation. There was a mild anemia present. There was a normal platelet count. No renal failure or significant electrolyte abnormality. There were some very subtle liver enzyme elevations, the bilirubin was normal. No evidence for pancreatitis. Urinalysis does not show infection. Bladder scan did show significant urinary retention. Abdominal and pelvis CT shows a Mason catheter within the bladder, there was no acute ureteral obstruction. The bladder was distended despite the Mason catheter being in proper position. The patient did have some sacral fractures which were thought nonoperable. The patient was given IV Dilaudid for pain, she received IV ceftriaxone as antibiotic coverage. The nursing staff had a very difficult time placing the Mason catheter. The urethra was quite narrow. A very small diameter Mason catheter was required and unfortunately, this allowed for some drainage but did not completely drain the bladder. I spoke with urology. For now, no further urologic intervention was felt necessary. Given the recent fall and resultant sacral fracture, her cancer diagnosis, the leukocytosis, the persistent urinary retention despite Mason catheter placement, I do think a hospital stay is warranted. I spoke with the patient and shoe caser. The on-call hospitalist was consulted. The patient may in fact require a urologic procedure during this hospitalization. Prior/Outside records/notes reviewed: Today's EMS notes describing her presentation and transport to this hospital. Imaging/x-ray results per my interpretation: Chronic Medical/Social conditions affecting care: History of colon cancer currently undergoing treatment. Care/Management discussed with: Case management, the on-call hospitalist. On- call urology-Dr. Torres Level of care consideration(s): After review of the information above and other included data: --I believe the patient requires escalation of care to admission DISPOSITION: Admission Past Med/Surg History Problem List (Updated 07/08/24 @ 16:35 by Alex Marie MD) Leukocytosis (Acute) Fall (Acute) Sacral fracture (Acute) Acute urinary retention (Acute) Acute right flank pain (Acute) Lumbar radiculopathy, acute Urine retention Status post right hemicolectomy Primary adenocarcinoma of ascending colon and hepatic flexure Abnormal CT scan, chest Abnormal PFT Chronic obstructive pulmonary disease Atherosclerosis of aorta History of compression fracture of spine chronic compression deformity of T9 and T11. Osteopenia Emphysema lung Anxiety and depression Cough 09/23/23 Weight loss Cerumen impaction Urinary urgency Urinary incontinence Degenerative disc disease Acute bronchitis 07/14/19 Precordial chest pain 07/06/16 Exposure to carbon monoxide (Acute) 08/07/04 Benzodiazepine overdose 09/26/16 Medical History COPD (chronic obstructive pulmonary disease) Abnormal PFTs (11/2023) Abnormal CT scan, chest (11/2023) Primary adenocarcinoma of ascending colon and hepatic flexure s/p hemicolectomy 01/12/24; awaiting port to start chemo Hx of deep venous thrombosis (2019) Hx DVT x 1. treated with anticoagulation for ~1 year, then stopped anticoagulation H/O degenerative disc disease Hx of compression fracture of spine chronic compression deformity of T9 and T11. Spinal stenosis Slow to wake up after anesthesia hx of--per pt had been on klonopin at the time--pt states with hemicolectomy 01/12/24 no anesthesia issues Surgical History Port-A-Cath in place (02/27/24) Insertion Access Port with Fluoroscopy Left Subclavian(Left) - Vikas Oreilly, H/O right hemicolectomy (01/12/24) Laparoscopic R hemicolectomy; GA: [place]#2, ETT#7.0 oral, Gr View 2 Hx of colonoscopy (12/2023) Hx of decompressive lumbar laminectomy History of D&C History of tubal ligation Family History Father Colon cancer Mother Colon cancer Other No family history of adverse response to anesthesia Social History Smoking Status: Current every day smoker Tobacco Type: Cigarettes Age Quit Using Tobacco: 52; packs per day: 0.5; Cigarettes Per Day: 10-15 cig per day; Second Hand Exposure: No; Do You Dip or Chew Tobacco: No; Hx Alcohol Use: No Hx Substance Use: No Preferred Language: Swedish Communication Ability: Effective Visual Impairment: No Limitations Group Director Required: No Beliefs That Will Affect Care: None marital status: Current Living Situation: Spouse current occupational status: employed current occupation: fast food cashier How many Children do You have: 4 Feels Safe at Home: Yes Childhood Exposure to Second-Hand Smoke: Yes Diet: regular caffeine: Yes Dental Care, Regularly: No Physical Activity Frequency: Daily Seatbelt Use: always Sunscreen Use: No Assistive Devices: Denture - Upper and Denture - Lower Allergies Allergies Allergy/AdvReac Type Severity Reaction Status Date / Time Penicillins Allergy Intermediate RASH/HIVES Verified 07/08/24 13:36 pollen extracts Allergy Unknown Unknown Verified 07/08/24 13:36 ketorolac AdvReac Mild "SWEATS Verified 07/08/24 13:36 AND VOMITING" Home Meds Home Medications Medication Instructions Recorded Confirmed bupropion HCl 300 mg 24 hr tablet, 300 mg PO QAM 12/21/18 07/08/24 extended release trazodone 50 mg tablet 50 mg PO HS PRN Insomnia 12/21/18 07/08/24 citalopram 20 mg tablet (Celexa) 20 mg PO QAM 09/23/23 07/08/24 oxycodone 5 mg tablet 5 mg PO UD PRN Pain 02/23/24 07/08/24 acetaminophen 500 mg tablet 500 mg PO Q6H PRN Pain 07/08/24 07/08/24 baclofen 10 mg tablet 10 mg PO TID PRN Muscle Spasm 07/08/24 07/08/24 lurasidone 120 mg tablet 120 mg PO QPM 07/08/24 07/08/24 omeprazole 20 mg capsule,delayed 20 mg PO BID 07/08/24 07/08/24 release Previous Rx's Medication Instructions Recorded umeclidinium 62.5 mcg-vilanterol 1 inh inhalation QAM #60 ea 06/21/24 25 mcg/actuation powdr for inhalation (Anoro Ellipta) Results & Data (ED) Vital Signs Vital Signs - 24 hr 07/08/24 10:56 07/08/24 11:14 07/08/24 12:03 Temperature 36.8 C Temperature Source Oral Pulse Rate 91 H 88 85 Pulse Rate from SpO2 Sensor 86 Respiratory Rate 13 17 Blood Pressure 158/101 H Blood Pressure Mean 120 Blood Pressure Position Semi-fowlers Pulse Oximetry 96 96 Oxygen Delivery Method Room Air Sepsis Recent Fever Within 48 Hours No Sepsis New/Unexplained Change in Mental Status No Sepsis Action Taken by Nursing No Action Required 07/08/24 13:03 Temperature Temperature Source Pulse Rate 89 Pulse Rate from SpO2 Sensor 89 Respiratory Rate 15 Blood Pressure 128/72 Blood Pressure Mean 90 Blood Pressure Position Pulse Oximetry 95 Oxygen Delivery Method Sepsis Recent Fever Within 48 Hours Sepsis New/Unexplained Change in Mental Status Sepsis Action Taken by Correction Medications Current Medication List: was personally reviewed by me Laboratory Data Attestation: I reviewed the patient's lab results. 07/08/24 11:33 07/08/24 11:33 Lab Results 07/08/24 07/08/24 Range/Units 11:23 11:33 WBC 14.64 H (4.8-10.8) K/ul RBC 3.88 L (4.20-5.40) M/uL Hgb 11.8 L (12.0-16.0) g/dl Hct 36.3 L (37.0-47.0) % MCV 93.6 (80.0-100.0) fL MCH 30.4 (25.0-34.0) pg MCHC 32.5 (32.0-36.0) g/dL RDW Std Deviation 66.5 H (36.4-46.3) fL RDW Coeff of Felicita 19.8 H (11.5-14.5) % Plt Count 257 (130-400) K/uL MPV 9.6 (9.4-12.4) fL Immature Gran % (Auto) 0.8 % Neut % (Auto) 88.0 % Lymph % (Auto) 7.4 % [place] % (Auto) 3.5 % Eos % (Auto) 0.1 % Baso % (Auto) 0.2 % Neut # (Auto) 12.90 H (1.40-6.50) K/uL Lymph # (Auto) 1.08 L (1.20-3.40) K/uL [place] # (Auto) 0.51 (0.11-0.59) K/uL Eos # (Auto) 0.01 (0.00-0.50) K/uL Baso # (Auto) 0.03 (0.00-0.20) K/uL Immature Gran # (Auto) 0.11 (0.01-0.20) K/uL Sodium 140 (136-145) mmol/L Potassium 4.1 (3.5-5.1) mmol/L Chloride 105 (98-107) mmol/L Carbon Dioxide 29 (21-32) mmol/L Anion Gap 6 (3-11) BUN 18 (6-23) mg/dl Creatinine 0.75 (0.6-1.2) mg/dl Est Cr Clr Drug Dosing 67.0 ml/min eGFR 93.96 BUN/Creatinine Ratio 24.0 H (10-20) Glucose 105 H (70-99(Fasting)) mg/dl Calcium 9.2 (8.6-10.3) mg/dl Total Bilirubin 0.4 (0.2-1.0) mg/dl AST 61 H (13-39) U/L ALT 43 (7-52) U/L Alkaline Phosphatase 173 H (34-104) U/L Total Protein 7.1 (6.0-8.3) gm/dl Albumin 3.6 (3.4-5.0) gm/dl Globulin 3.5 (2.5-4.0) gm/dl Albumin/Globulin Ratio 1.0 (0.9-2) Lipase 26 (11-82) U/L Urine Color Yellow Urine Appearance Clear (Clear) Urine pH 7.0 (4.5-7.5) Ur Specific [place] 1.014 (1.000-1.030) Urine Protein Negative (Negative) Urine Glucose (UA) Negative (Negative) Urine Ketones Negative (Negative) Urine Blood Negative (Negative) Urine Nitrite Negative (Negative) Urine Bilirubin Negative (Negative) Urine Urobilinogen Negative (Negative) Ur Leukocyte Esterase Negative (Negative) Administered Medications Discontinued Medications Gabapentin (Gabapentin 100 Mg Cap) 100 mg PO ONE STA Stop: 07/08/24 13:32 Last Admin: 07/08/24 15:12 Dose: 100 mg Documented By: CEF Gadobutrol (Gadobutrol 65ml Vial) 6 ml IV ONCE ONE Stop: 07/08/24 15:02 Last Admin: 07/08/24 15:01 Dose: 6 ml Documented By: VALENTIN Hydromorphone HCl (Hydromorphone Inj 0.5 Mg/0.5 Ml Syr) 0.5 mg IV NOW STA Stop: 07/08/24 11:17 Last Admin: 07/08/24 11:47 Dose: 0.5 mg Documented By: CEF Hydromorphone HCl (Hydromorphone Inj 0.5 Mg/0.5 Ml Syr) 0.5 mg IV Q15M PRN PRN Reason: Pain Stop: 07/22/24 11:15 Last Admin: 07/08/24 13:43 Dose: 0.5 mg Documented By: CEF Ceftriaxone Sodium (Rocephin) 2,000 mg in 50 mls @ 100 mls/hr IV NOW STA Stop: 07/08/24 12:33 Last Infusion: 07/08/24 12:59 Dose: Infused Documented By: Admin: 07/08/24 12:22 Dose: 100 mls/hr Documented By: CEF Ioversol (Optiray 320 100ml) 93 ml IV ONCE ONE Stop: 07/08/24 12:36 Last Admin: 07/08/24 12:35 Dose: 93 ml Documented By: KSMitchell Imaging Data Radiologist's Impression: Abdomen/Pelvis CT 07/08/24 11:[address] WITH IV CONTRAST CT DOSE: 465.3 mGy.cm HISTORY: Acute onset abdominal pain with urinary retention urinary retention TECHNIQUE: Multiaxial CT images of the abdomen and pelvis were performed following the IV administration of 93 cc of Optiray, A dose lowering technique was utilized adhering to the principles of ALARA. COMPARISON STUDY: 06/13/2024 FINDINGS: Pulmonary emphysema with bronchial wall thickening. No pneumatosis, free air or portal venous gas is present. There are no hepatic lesions. Peripherally calcified gallstone within the gallbladder is noted. There is no evidence for acute cholecystitis. The spleen, right adrenal gland, left kidney and pancreas are unremarkable. Nodularity of the left adrenal gland is unchanged. This is likely benign. A water attenuation 3.5 cm right renal lesion represents a cyst. There is no hydronephrosis. Mason catheter balloon within the urinary bladder. Bladder is mildly distended measuring up to 9.6 cm and contains a focus of air within the nondependent lumen, likely secondary to instrumentation. Mild urinary bladder wall thickening. The caliber and wall thickness of small and large bowel are normal. There are expected findings following right hemicolectomy. There is no abdominal or pelvic lymphadenopathy. No abdominal or pelvic fluid collections are present. Major vasculature is patent. There are no suspicious lesions within the visualized skeletal structures. Chronic thoracolumbar compression deformities. Acute mildly comminuted bilateral sacral alar fractures extend into the SI joint with minimal displacement. 2 mm volar displacement of the mid sacrum at S2-S3. Trace presacral stranding/hemorrhage. IMPRESSION: 1. Mild distention of the urinary bladder with Mason catheter in place. 2. No urolith or hydronephrosis. 3. Prior right hemicolectomy. 4. No lymphadenopathy or evidence of metastatic disease. 5. Acute comminuted minimally displaced sacral fractures are new from 06/13/2024. ACT 112: Negative or not required by law. The above report was generated using voice recognition software. It may contain grammatical, syntax or spelling errors. Electronically signed by: Umer Cardenas M.D. 07/08/2024 12:55 PM Lumbar Spine MRI 07/08/24 13:30 MR lumbar spine wo/w con CLINICAL HISTORY: right lumbar radicular pain L5 distribution. COMPARISON: TECHNIQUE: Multiplanar, multi sequence MRI of the lumbar spine was performed before and after 6 cc gadolinium IV. FINDINGS: Compared with x-ray of 06/22/2024 There is motion artifact. Conus medullaris terminates normally at L1. There is moderate height loss at the T11 vertebral body and mild height loss at the L3 vertebral body with no abnormal signal consistent with chronic vertebral body compression abnormalities. No acute fracture or subluxation seen. There is diffuse degenerative disc disease. No abnormal enhancement seen. L1-2: There is a mild right paracentral disc bulge without significant central canal narrowing. There is mild right neuroforaminal narrowing. L2-3: There is a minimal disc bulge with ligamentum flavum and facet hypertrophy. No significant central canal narrowing. There is mild bilateral neural foraminal narrowing. L3-4: There is a mild disc bulge with mild ligamentum flavum flavum and facet hypertrophy. No significant central canal narrowing. There is mild bilateral neural foraminal narrowing. L4-5: There is a mild disc bulge. No significant central canal narrowing. There is moderate bilateral neural foraminal narrowing. L5-S1: There is a minimal disc bulge without central canal narrowing. There is mild bilateral neural foraminal narrowing. IMPRESSION: 1. No acute fracture seen. 2. Diffuse degenerative changes as described. ACT 112: Negative or not required by law. The above report was generated using voice recognition software. It may contain grammatical, syntax or spelling errors. Electronically signed by: Naif Siegel M.D. 07/08/2024 3:20 PM Discharge Plan Visit Data Chief Complaint: Flank Pain Stated Complaint: r flank pain ED Provider: Alex Marie Discharge Problem: Acute right flank pain, Acute urinary retention, Sacral fracture, Fall, Leukocytosis Patient Disposition: Admitted As Inpatient Condition: Fair Discharge Instructions Interventions: ED Discharge Assessment Last Done: 07/08/24 15:44 Discharge Problem: Sacral fracture Qualifiers: Encounter type: initial encounter Fracture type: closed Fracture morphology: u nspecified fracture morphology Qualified Code(s): S32.10XA - Unspecified fracture of sacrum, initial encounter for closed fracture Fall Qualifiers: Encounter type: initial encounter Qualified Code(s): W19.XXXA - Unspecified fall, initial encounter Leukocytosis Qualifiers: Leukocytosis type: unspecified Qualified Code(s): D72.829 - Elevated white blood cell count, unspecified
[2024-07-08] MEDS: HYDROmorphone INJ 0.5 MG/0.5 ML SYR IV STA (11:47)
[2024-07-08 11:50] LABS: Appearance Urine Clear (Clear); Bilirubin Urine Negative (Negative); Blood Urine Negative (Negative); Color Urine Yellow; Glucose Urine UA Negative (Negative); Ketones Urine Negative (Negative); Leukocyte Esterase Urine Negative (Negative); Nitrite Urine Negative (Negative); Protein Urine Negative (Negative); Specific Gravity Urine 1.014 (1.000-1.030); Urobilinogen Urine Negative (Negative)
[2024-07-08 12:04] LABS: Basophils # (auto) 0.03 K/uL (0.00-0.20); Basophils % (auto) 0.2 %; Eosinophils # (auto) 0.01 K/uL (0.00-0.50); Eosinophils % (auto) 0.1 %; Hematocrit (blood only) 36.3 % (37.0-47.0); Hemoglobin 11.8 g/dl (12.0-16.0); Immature Granulocytes # (auto) 0.11 K/uL (0.01-0.20); Immature Granulocytes % (auto) 0.8 %; Lymphocytes # (auto) 1.08 K/uL (1.20-3.40); Lymphocytes % (auto) 7.4 %; Mean Corpuscular Hemoglobin 30.4 pg (25.0-34.0); Mean Corpuscular Hgb Conc 32.5 g/dL (32.0-36.0); Mean Corpuscular Volume 93.6 fL (80.0-100.0); Mean Platelet Volume 9.6 fL (9.4-12.4); Monocytes # (auto) 0.51 K/uL (0.11-0.59); Monocytes % (auto) 3.5 %; Platelet Count 257 K/uL (130-400); RDW Coefficient of Variation 19.8 % (11.5-14.5); RDW Standard Deviation 66.5 fL (36.4-46.3); Red Blood Count 3.88 M/uL (4.20-5.40); White Blood Count 14.64 K/ul (4.8-10.8)
[2024-07-08 12:21] LABS: Albumin Level 3.6 gm/dl (3.4-5.0); Bilirubin,Total 0.4 mg/dl (0.2-1.0); Calcium 9.2 mg/dl (8.6-10.3); Globulin 3.5 gm/dl (2.5-4.0); Potassium 4.1 mmol/L (3.5-5.1); Total Protein 7.1 gm/dl (6.0-8.3)
[2024-07-08] MEDS: cefTRIAXone SODIUM 2,000 MG/50 ML BAG IV STA (12:22)
[2024-07-08] MEDS: OPTIRAY 320 100ml IV ONE (12:35)
--- NOTE | 2024-07-08 12:56 | CT Scan Report ---
ABDOMEN AND PELVIS CT WITH IV CONTRAST CT DOSE: 465.3 mGy.cm HISTORY: Acute onset abdominal pain with urinary retention urinary retention TECHNIQUE: Multiaxial CT images of the abdomen and pelvis were performed following the IV administrat ion of 93 cc of Optiray, A dose lowering technique was utilized adhering to the principles of ALARA. COMPARISON STUDY: 06/13/2024 FINDINGS: Pulmonary emphysema with bronchial wall thickening. No pneumatosis, free air or portal veno us gas is present. There are no hepatic lesions. Peripherally calcified gallstone within the gallblad fox is noted. There is no evidence for acute cholecystitis. The spleen, right adrenal gland, left kid jing and pancreas are unremarkable. Nodularity of the left adrenal gland is unchanged. This is likely benign. A water attenuation 3.5 cm right renal lesion represents a cyst. There is no hydronephrosis. Mason ca theter balloon within the urinary bladder. Bladder is mildly distended measuring up to 9.6 cm and con tains a focus of air within the nondependent lumen, likely secondary to instrumentation. Mild urinary bladder wall thickening. The caliber and wall thickness of small and large bowel are normal. There a re expected findings following right hemicolectomy. There is no abdominal or pelvic lymphadenopathy. No abdominal or pelvic fluid collections are present. Major vasculature is patent. There are no suspi cious lesions within the visualized skeletal structures. Chronic thoracolumbar compression deformitie s. Acute mildly comminuted bilateral sacral alar fractures extend into the SI joint with minimal disp lacement. 2 mm volar displacement of the mid sacrum at S2-S3. Trace presacral stranding/hemorrhage. IMPRESSION: 1. Mild distention of the urinary bladder with Mason catheter in place. 2. No urolith or hydronephrosis. 3. Prior right hemicolectomy. 4. No lymphadenopathy or evidence of metastatic disease. 5. Acute comminuted minimally displaced sacral fractures are new from 06/13/2024. ACT 112: Negative or not required by law. The above report was generated using voice recognition software. It may contain grammatical, syntax o r spelling errors. Electronically signed by: Umer Cardenas M.D. 07/08/2024 12:55 PM
--- NOTE | 2024-07-08 13:34 | History & Physical Report ---
Date of Service July 08, 2024 Assessment & Plan (1) Urine retention: Plan: Current Mason catheter does not appear to be completely emptying the bladder ER discussed with urology and advised to leave in place for now pending urology review (2) Sacral fracture: Plan: Weight bear as tolerated Pain control with acetaminophen 1g PO TID, Toradol 15mg q6h, oxycodone PRN, PT/OT (3) Lumbar radiculopathy, acute: Plan: Suspect most likely from disc protrusion given initial association with fall but given worsening symptoms, colon cancer diagnosis and now with urine retention will get MRI w/wo IV contrast to assess for alternative etiology and cauda equina. Acetaminophen, Toradol, oxycodone as above Add gabapentin 100mg PO TID (4) Leukocytosis: Plan: Continue to monitor but appears to be stable. Urine is not infected appearing. (5) Primary adenocarcinoma of ascending colon and hepatic flexure: Plan: Currently on FOLFOX chemotherapy Plan VTE Prophylaxis - Lovenox 40mg SQ daily Diet - regular Disposition - admit to med/surg Admission and Anticipated Discharge Date Admission Date: July 08, 2024 History of Present Illness Chief Complaint: Urine retention Primary Care Provider: DO Rachel Jim Jaylan is a 53 year old female on chemotherapy (FOLFOX) for colorectal cancer diagnosed in December 2023 presents to the ER due to inability to urinate starting today. Denies fever, chills, new flank pain, dysuria, hematuria, change in urine smell. In the ER bladder scan showed 800 mL. Attemp naif Mason catheter was successful although not fully draining her bladder as can be seen on CT scan. Urology was contacted by ER provider and will be seen later today. No prior radiation. She was notes 1 month history of right sided, buttocks and leg pain. Original injury was when she slipped and fell on the ice with right sided radicular pain since then going down to her knee. A few days off this her dog knocked her down in addition. She has been having this lumbar radicular pain since then with no prior MRI imaging. No bowel issues. Allergies Allergy/AdvReac Type Severity Reaction Status Date / Time Penicillins Allergy Intermediate RASH/HIVES Verified 07/08/24 13:36 pollen extracts Allergy Unknown Unknown Verified 07/08/24 13:36 ketorolac AdvReac Mild "SWEATS Verified 07/08/24 13:36 AND VOMITING" Home Medications Medication Instructions Recorded Confirmed Type bupropion HCl 300 mg 24 hr tablet, 300 mg PO QAM 12/21/18 07/08/24 History extended release trazodone 50 mg tablet 50 mg PO HS PRN Insomnia 12/21/18 07/08/24 History citalopram 20 mg tablet (Celexa) 20 mg PO QAM 09/23/23 07/08/24 History oxycodone 5 mg tablet 5 mg PO UD PRN Pain 02/23/24 07/08/24 History umeclidinium 62.5 mcg-vilanterol 1 inh inhalation QAM #60 ea 06/21/24 07/08/24 Rx 25 mcg/actuation powdr for inhalation (Anoro Ellipta) acetaminophen 500 mg tablet 500 mg PO Q6H PRN Pain 07/08/24 07/08/24 History baclofen 10 mg tablet 10 mg PO TID PRN Muscle Spasm 07/08/24 07/08/24 History lurasidone 120 mg tablet 120 mg PO QPM 07/08/24 07/08/24 History omeprazole 20 mg capsule,delayed 20 mg PO BID 07/08/24 07/08/24 History release Past Med/Surg History Problem List (Updated 07/08/24 @ 16:35 by Alex Marie MD) Leukocytosis (Acute) Fall (Acute) Sacral fracture (Acute) Acute urinary retention (Acute) Acute right flank pain (Acute) Lumbar radiculopathy, acute Urine retention Status post right hemicolectomy Primary adenocarcinoma of ascending colon and hepatic flexure Abnormal CT scan, chest Abnormal PFT Chronic obstructive pulmonary disease Atherosclerosis of aorta History of compression fracture of spine chronic compression deformity of T9 and T11. Osteopenia Emphysema lung Anxiety and depression Cough 09/23/23 Weight loss Cerumen impaction Urinary urgency Urinary incontinence Degenerative disc disease Acute bronchitis 07/14/19 Precordial chest pain 07/06/16 Exposure to carbon monoxide (Acute) 08/07/04 Benzodiazepine overdose 09/26/16 Medical History COPD (chronic obstructive pulmonary disease) Abnormal PFTs (11/2023) Abnormal CT scan, chest (11/2023) Primary adenocarcinoma of ascending colon and hepatic flexure s/p hemicolectomy 01/12/24; awaiting port to start chemo Hx of deep venous thrombosis (2019) Hx DVT x 1. treated with anticoagulation for ~1 year, then stopped anticoagulation H/O degenerative disc disease Hx of compression fracture of spine chronic compression deformity of T9 and T11. Spinal stenosis Slow to wake up after anesthesia hx of--per pt had been on klonopin at the time--pt states with hemicolectomy 01/12/24 no anesthesia issues Surgical History Port-A-Cath in place (02/27/24) Insertion Access Port with Fluoroscopy Left Subclavian(Left) - Vikas Oreilly DO H/O right hemicolectomy (01/12/24) Laparoscopic R hemicolectomy; GA: [place]#2, ETT#7.0 oral, Gr View 2 Hx of colonoscopy (12/2023) Hx of decompressive lumbar laminectomy History of D&C History of tubal ligation Family History Father Colon cancer Mother Colon cancer Other No family history of adverse response to anesthesia Social History Smoking Status: Current every day smoker Tobacco Type: Cigarettes Age Quit Using Tobacco: 52; packs per day: 0.5; Cigarettes Per Day: 10; Second Hand Exposure: No; Do You Dip or Chew Tobacco: No; Tobacco Cessation Education Requested by Patient: No Hx Alcohol Use: No Hx Substance Use: No Preferred Language: Mohawk Communication Ability: Effective Visual Impairment: No Limitations Travel Rn Required: No Beliefs That Will Affect Care: None marital status: Current Living Situation: Spouse current occupational status: employed current occupation: cook cashier food prep How many Children do You have: 4 Feels Safe at Home: Yes Safety Concerns: Feels Safe At This Time Childhood Exposure to Second-Hand Smoke: Yes Diet: regular caffeine: Yes Dental Care, Regularly: No Physical Activity Frequency: Daily Seatbelt Use: always Sunscreen Use: No Assistive Devices: Denture - Upper and Denture - Lower Review of Systems Review of Systems: All systems reviewed & are unremarkable except as noted in HPI & below Physical Exam Constitutional: WD/WN, vitals as above ENMT: external ear and nose normal, oropharynx normal Respiratory: normal respiratory effort, lungs clear to auscultation Cardiovascular: RRR, no murmur, no edema Gastrointestinal (Abdomen): Inspection/Auscultation: abdomen normal to inspection; abdomen not distended Percussion/Palpation: + abdomen tender (Suprapubic) and abdomen soft Skin: no rashes, warm and dry Neurologic: moves all extremities and awake right lower extremity hip flex 4/5 limited by pain, ankle dorsi/plantarflex 5/5 PT/DP pulses intact Psychiatric: A+Ox3, euthymic affect Genitourinary: no CVA tenderness Results & Data Results & Data Vital Signs (Past 12 Hours) Vital Signs Temp Pulse Resp BP Pulse Ox O2 Del Method 07/08/24 13:03 89 15 128/72 95 07/08/24 12:03 85 17 96 07/08/24 11:14 88 07/08/24 10:56 36.8 C 91 H 13 158/101 H 96 Room Air Laboratory Results Abnormal lab results 07/08/24 Range/Units 11:33 WBC 14.64 H (4.8-10.8) K/ul RBC 3.88 L (4.20-5.40) M/uL Hgb 11.8 L (12.0-16.0) g/dl Hct 36.3 L (37.0-47.0) % RDW Std Deviation 66.5 H (36.4-46.3) fL RDW Coeff of Felicita 19.8 H (11.5-14.5) % Neut # (Auto) 12.90 H (1.40-6.50) K/uL Lymph # (Auto) 1.08 L (1.20-3.40) K/uL BUN/Creatinine Ratio 24.0 H (10-20) Glucose 105 H (70-99(Fasting)) mg/dl AST 61 H (13-39) U/L Alkaline Phosphatase 173 H (34-104) U/L Diagnostic Findings ABDOMEN AND PELVIS CT WITH IV CONTRAST CT DOSE: 465.3 mGy.cm HISTORY: Acute onset abdominal pain with urinary retention urinary retention TECHNIQUE: Multiaxial CT images of the abdomen and pelvis were performed following the IV administration of 93 cc of Optiray, A dose lowering technique was utilized adhering to the principles of ALARA. COMPARISON STUDY: 06/13/2024 FINDINGS: Pulmonary emphysema with bronchial wall thickening. No pneumatosis, free air or portal venous gas is present. There are no hepatic lesions. Peripherally calcified gallstone within the gallbladder is noted. There is no evidence for acute cholecystitis. The spleen, right adrenal gland, left kidney and pancreas are unremarkable. Nodularity of the left adrenal gland is unchanged. This is likely benign. A water attenuation 3.5 cm right renal lesion represents a cyst. There is no hydronephrosis. Mason catheter balloon within the urinary bladder. Bladder is mildly distended measuring up to 9.6 cm and contains a focus of air within the nondependent lumen, likely secondary to instrumentation. Mild urinary bladder wall thickening. The caliber and wall thickness of small and large bowel are normal. There are expected findings following right hemicolectomy. There is no abdominal or pelvic lymphadenopathy. No abdominal or pelvic fluid collections are present. Major vasculature is patent. There are no suspicious lesions within the visualized skeletal structures. Chronic thoracolumbar compression deformit ies. Acute mildly comminuted bilateral sacral alar fractures extend into the SI joint with minimal displacement. 2 mm volar displacement of the mid sacrum at S2-S3. Trace presacral stranding/hemorrhage. IMPRESSION: 1. Mild distention of the urinary bladder with Mason catheter in place. 2. No urolith or hydronephrosis. 3. Prior right hemicolectomy. 4. No lymphadenopathy or evidence of metastatic disease. 5. Acute comminuted minimally displaced sacral fractures are new from 06/13/2024. Medications Administered ER medications given: Dilaudid 0.5 mg IV x 2 Ceftriaxone 2000 mg IV Code Status & VTE Plan Code Status Full VTE Prophylaxis Plan VTE Prophylaxis will be ordered: Yes PG Care Time/CCT Total # of Minutes Spent Total Time Spent with Patient: Total time spent is greater than 50% in coordination of care (as documented) at patient's floor/unit and/or counseling patient: Coding Level of Care Code 60022 INT INP/OBS CARE 3/75MIN Diagnoses Urine retention R33.9 Sacral fracture S32.10XA Encounter type: initial encounter Fracture morphology: unspecified fracture morphology Fracture type: closed Lumbar radiculopathy, acute M54.16 Leukocytosis D72.829 Leukocytosis type: unspecified Primary adenocarcinoma of ascending colon and hepatic flexure C18.2; C18.3 (2) Sacral fracture Encounter type: initial encounter Fracture morphology: unspecified fracture morphology Fracture type: closed Qualified Code(s): S32.10XA - Unspecified fracture of sacrum, initial encounter for closed fracture (4) Leukocytosis Leukocytosis type: unspecified Qualified Code(s): D72.829 - Elevated white blood cell count, unspecified
[2024-07-08] MEDS: HYDROmorphone INJ 0.5 MG/0.5 ML SYR IV PRN ×2 (13:43→20:26)
--- NOTE | 2024-07-08 14:39 | Urology Consultation ---
Date of Consultation July 08, 2024 Assessment & Plan (1) Urine retention: 53-year-old female with colon cancer and recent falls admitted for sacral fracture, acute lumbar pain with radiculopathy and urinary retention. Patient is afebrile and hemodynamically stable Labs reviewedcreatinine 0.75, WBC 14.64, hemoglobin 11.8 Urinalysis was not suspicious for infection CT imaging reviewed and showed mild bladder distention with Mason catheter within bladder, no hydronephrosis Difficult catheter placement per nursing, 12 Afghan catheter currently in place and draining appropriately Maintain Mason catheter for management of urinary retention, at least 7-10 days or until pain/ambulation is improved Recommend continue with current catheter at this time, can be upsized if needed Continue pain control and medical management of sacral fracture per hospital service We can arrange outpatient follow-up with our service for voiding trial and ongoing management will sign off, please contact us if issues arise during hospitalization History of Present Illness Reason for Consultation: Urinary retention Requesting Physician: Dr. Jon Attending Physician: Dr. Jon History of Present Illness This is a 53-year-old female with past medical history including colon cancer status post right hemicolectomy currently on chemotherapy who experienced a fall on the ice about 3 weeks ago and presented to the emergency department today for evaluation of inability to void, bladder pressure and right flank pain. On arrival to ED, she was afebrile, hypertensive. Lab work showed WBC 14.64, hemoglobin 11.8, creatinine 0.75. Patient was bladder scanned for over 800 mL. Nursing had difficulty placing Mason catheter, but ultimately was able to place a 12 Afghan catheter. Urinalysis unremarkable. Workup in ED included a CT abdomen pelvis with IV contrast. CT showed no hydronephrosis. Mason catheter within the urinary bladder, mild distention of the bladder noted. Acute comminuted minimally displaced sacral fractures new from 06/13/2024. She was admitted to the hospital medicine service for further evaluation and management. Patient ordered to have MRI with and without IV contrast for further evaluation. Patient seen and examined in the emergency department. She is awake and resting in litter, no apparent distress. She reports she was voiding spontaneously without difficulty until approximately 3 AM. No dysuria or hematuria. Denies constipation. She reports she has experienced 2 falls recently and has had worsening back pain with radiation to right leg. No abdominal or suprapubic pain at present. Continues to have back pain, but improved since arrival. Denies fever, chills, nausea or vomiting at present. Mason intact. Allergies Allergy/AdvReac Type Severity Reaction Status Date / Time Penicillins Allergy Intermediate RASH/HIVES Verified 07/08/24 13:36 pollen extracts Allergy Unknown Unknown Verified 07/08/24 13:36 ketorolac AdvReac Mild "SWEATS Verified 07/08/24 13:36 AND VOMITING" Home Medications Medication Instructions Recorded Confirmed Type bupropion HCl 300 mg 24 hr tablet, 300 mg PO QAM 12/21/18 07/08/24 History extended release trazodone 50 mg tablet 50 mg PO HS PRN Insomnia 12/21/18 07/08/24 History citalopram 20 mg tablet (Celexa) 20 mg PO QAM 09/23/23 07/08/24 History oxycodone 5 mg tablet 5 mg PO UD PRN Pain 02/23/24 07/08/24 History umeclidinium 62.5 mcg-vilanterol 1 inh inhalation QAM #60 ea 06/21/24 07/08/24 Rx 25 mcg/actuation powdr for inhalation (Anoro Ellipta) acetaminophen 500 mg tablet 500 mg PO Q6H PRN Pain 07/08/24 07/08/24 History baclofen 10 mg tablet 10 mg PO TID PRN Muscle Spasm 07/08/24 07/08/24 History lurasidone 120 mg tablet 120 mg PO QPM 07/08/24 07/08/24 History omeprazole 20 mg capsule,delayed 20 mg PO BID 07/08/24 07/08/24 History release Patient History Medical History COPD (chronic obstructive pulmonary disease) Abnormal PFTs (11/2023) Abnormal CT scan, chest (11/2023) Primary adenocarcinoma of ascending colon and hepatic flexure s/p hemicolectomy 01/12/24; awaiting port to start chemo Hx of deep venous thrombosis (2019) Hx DVT x 1. treated with anticoagulation for ~1 year, then stopped anticoagulation H/O degenerative disc disease Hx of compression fracture of spine chronic compression deformity of T9 and T11. Spinal stenosis Slow to wake up after anesthesia hx of--per pt had been on klonopin at the time--pt states with hemicolectomy 01/12/24 no anesthesia issues Surgical History Port-A-Cath in place (02/27/24) Insertion Access Port with Fluoroscopy Left Subclavian(Left) - Vikas Oreilly, H/O right hemicolectomy (01/12/24) Laparoscopic R hemicolectomy; GA: [place]#2, ETT#7.0 oral, Gr View 2 Hx of colonoscopy (12/2023) Hx of decompressive lumbar laminectomy History of D&C History of tubal ligation Family History Father Colon cancer Mother Colon cancer Other No family history of adverse response to anesthesia Social History Smoking Status: Current every day smoker Tobacco Type: Cigarettes Age Quit Using Tobacco: 52; packs per day: 0.5; Cigarettes Per Day: 10-15 cig per day; Second Hand Exposure: No; Do You Dip or Chew Tobacco: No; Hx Alcohol Use: No Hx Substance Use: No Preferred Language: Tanzanian Communication Ability: Effective Visual Impairment: No Limitations Shipping Weigher Required: No Beliefs That Will Affect Care: None marital status: Current Living Situation: Spouse current occupational status: employed current occupation: booth cashier How many Children do You have: 4 Feels Safe at Home: Yes Childhood Exposure to Second-Hand Smoke: Yes Diet: regular caffeine: Yes Dental Care, Regularly: No Physical Activity Frequency: Daily Seatbelt Use: always Sunscreen Use: No Assistive Devices: Denture - Upper and Denture - Lower Review of Systems Review of Systems: All systems reviewed & are unremarkable except as noted in HPI & below Physical Exam Constitutional: no acute distress Respiratory: normal respiratory effort; no respiratory distress and no labored breathing Gastrointestinal (Abdomen): Inspection/Auscultation: abdomen normal to inspection Musculoskeletal: Head/Neck/Chest: normocephalic Neurologic: moves all extremities and awake Psychiatric: Orientation: alert and oriented x 3 Genitourinary: Mason patent and draining clear yellow urine Results & Data Vital Signs (Past 12 Hours) Vital Signs Temp Pulse Resp BP Pulse Ox O2 Del Method 07/08/24 13:03 89 15 128/72 95 07/08/24 12:03 85 17 96 07/08/24 11:14 88 07/08/24 10:56 36.8 C 91 H 13 158/101 H 96 Room Air PG Care Time/CCT Total # of Minutes Spent Total Time Spent with Patient: Total time spent is greater than 50% in coordination of care (as documented) at patient's floor/unit and/or counseling patient: Coding Level of Care Code 83689 IN/OBS CONSULT LVL 4,60M Diagnoses Urine retention R33.9
[2024-07-08] MEDS: GADOBUTROL 65ML VIAL IV ONE (15:01)
[2024-07-08] MEDS: GABAPENTIN 100 MG CAP PO STA (15:12)
--- NOTE | 2024-07-08 15:23 | Magnetic Resonance Report ---
MR lumbar spine wo/w con CLINICAL HISTORY: right lumbar radicular pain L5 distribution. COMPARISON: TECHNIQUE: Multiplanar, multi sequence MRI of the lumbar spine was performed before and after 6 cc ga dolinium IV. FINDINGS: Compared with x-ray of 06/22/2024 There is motion artifact. Conus medullaris terminates normally at L1. There is moderate height loss a t the T11 vertebral body and mild height loss at the L3 vertebral body with no abnormal signal consis tent with chronic vertebral body compression abnormalities. No acute fracture or subluxation seen. Th ere is diffuse degenerative disc disease. No abnormal enhancement seen. L1-2: There is a mild right paracentral disc bulge without significant central canal narrowing. There is mild right neuroforaminal narrowing. L2-3: There is a minimal disc bulge with ligamentum flavum and facet hypertrophy. No significant cent ral canal narrowing. There is mild bilateral neural foraminal narrowing. L3-4: There is a mild disc bulge with mild ligamentum flavum flavum and facet hypertrophy. No signifi cant central canal narrowing. There is mild bilateral neural foraminal narrowing. L4-5: There is a mild disc bulge. No significant central canal narrowing. There is moderate bilateral neural foraminal narrowing. L5-S1: There is a minimal disc bulge without central canal narrowing. There is mild bilateral neural foraminal narrowing. IMPRESSION: 1. No acute fracture seen. 2. Diffuse degenerative changes as described. ACT 112: Negative or not required by law. The above report was generated using voice recognition software. It may contain grammatical, syntax o r spelling errors. Electronically signed by: Naif Siegel M.D. 07/08/2024 3:20 PM
[2024-07-08] MEDS ORDERED: oxyCODONE HCL IR 5 MG TAB (IMMEDIATE RELEASE) PO PRN (16:01)
[2024-07-08] MEDS ORDERED: HYDROmorphone INJ 0.5 MG/0.5 ML SYR IV PRN (16:01)
[2024-07-08] MEDS: ACETAMINOPHEN 500 MG TAB PO SCH (16:43)
[2024-07-08] MEDS: KETOROLAC TROMETHAMINE 15 MG/ML VIAL IV SCH (16:43)
[2024-07-08] MEDS: buPROPion XL 300 MG TABCR PO SCH (20:26)
[2024-07-08] MEDS: GABAPENTIN 100 MG CAP PO SCH (20:26)
[2024-07-08] MEDS: PANTOprazole 40 MG TAB PO SCH (20:26)
[2024-07-08] MEDS: traZODone HCL 50 MG TAB PO PRN (20:26)
[2024-07-08] MEDS: CITALOPRAM 20 MG TAB PO SCH (20:26)
[2024-07-09] MEDS: oxyCODONE HCL IR 5 MG TAB (IMMEDIATE RELEASE) PO PRN (05:42)
[2024-07-09] MEDS: HEPARIN 100 UNIT/ML 5ML FLUSH FLUSH PRN (06:51)
[2024-07-09 07:12] LABS: Basophils # (auto) 0.02 K/uL (0.00-0.20); Basophils % (auto) 0.3 %; Eosinophils # (auto) 0.03 K/uL (0.00-0.50); Eosinophils % (auto) 0.4 %; Hematocrit (blood only) 32.1 % (37.0-47.0); Hemoglobin 10.6 g/dl (12.0-16.0); Immature Granulocytes # (auto) 0.05 K/uL (0.01-0.20); Immature Granulocytes % (auto) 0.6 %; Lymphocytes # (auto) 1.84 K/uL (1.20-3.40); Lymphocytes % (auto) 23.1 %; Mean Corpuscular Hemoglobin 30.7 pg (25.0-34.0); Mean Platelet Volume 9.6 fL (9.4-12.4); Monocytes # (auto) 0.13 K/uL (0.11-0.59); Monocytes % (auto) 1.6 %; Platelet Count 225 K/uL (130-400); RDW Coefficient of Variation 18.7 % (11.5-14.5); RDW Standard Deviation 63.8 fL (36.4-46.3); Red Blood Count 3.45 M/uL (4.20-5.40); White Blood Count 7.97 K/ul (4.8-10.8)
[2024-07-09 07:20] LABS: Albumin Globulin Ratio 1.1 (0.9-2); Albumin Level 3.1 gm/dl (3.4-5.0); Bilirubin,Total 0.3 mg/dl (0.2-1.0); Calcium 8.9 mg/dl (8.6-10.3); Creatinine Clr Calc Pharmacy 68.9 ml/min; Globulin 2.8 gm/dl (2.5-4.0); Potassium 3.8 mmol/L (3.5-5.1); Total Protein 5.9 gm/dl (6.0-8.3)
[2024-07-09 07:51] VITALS: O2SAT 96
[2024-07-09] MEDS: ENOXAPARIN INJ 40 MG/0.4 ML SYR SQ SCH (08:21)
[2024-07-09] MEDS: UMECLIDINIUM/VILANTEROL 62.5/25MCG 7 PUFFS/INHALER INH SCH (10:07)
[2024-07-09 12:41] VITALS: BP 142/88; RESP 16; TEMP 99.1
--- NOTE | 2024-07-09 14:04 | Communication Note ---
Date of Service: July 09, 2024 PossibleAge-related osteoporotic fracture of the sacrum 53-year-old female with known history of osteoporosis who presents after a fall approximately 3 weeks ago presents with urinary retention and pain. She has been diagnosed with a sacral fracture. Pelvic CT confirms acute comminuted minimally displaced sacral fractures that are new since 06/13/2024. Risk Factor(s): Age, female, known osteoporosis, Ground-level fall inducing sacral fractures Treatment: P.o. as needed oxycodone, as needed IV Dilaudid, p.o. Neurontin,
--- NOTE | 2024-07-09 14:05 | Discharge Summary ---
Discharge Summary Date of Service July 09, 2024 Principal Dx & Hospital Course #1 = Principal Diagnosis (1) Urine retention: Current Mason catheter does not appear to be completely emptying the bladder ER discussed with urology and advised to leave in place for now pending urology review (2) Sacral fracture: Weight bear as tolerated Pain control with acetaminophen 1g PO TID, Toradol 15mg q6h, oxycodone PRN, PT/OT (3) Lumbar radiculopathy, acute: Suspect most likely from disc protrusion given initial association with fall but given worsening symptoms, colon cancer diagnosis and now with urine retention will get MRI w/wo IV contrast to assess for alternative etiology and cauda equina. Acetaminophen, Toradol, oxycodone as above Add gabapentin 100mg PO TID (4) Leukocytosis: Continue to monitor but appears to be stable. Urine is not infected appearing. (5) Primary adenocarcinoma of ascending colon and hepatic flexure: Currently on FOLFOX chemotherapy Plan Possible Age-related osteoporotic fracture of the sacrum 53-year-old female with known history of osteoporosis who presents after a fall approximately 3 weeks ago presents with urinary retention and pain. She has been diagnosed with a sacral fracture. Pelvic CT confirms acute comminuted minimally displaced sacral fractures that a re new since 06/13/2024. Risk Factor(s): Age, female, known osteoporosis, Ground-level fall inducing sacral fractures Treatment: P.o. as needed oxycodone, as needed IV Dilaudid, p.o. Neurontin, VTE Prophylaxis - Lovenox 40mg SQ daily Diet - regular Disposition - admit to med/surg Admission HPI Per Admitting Provider Rachel Tian is a 53 year old female on chemotherapy (FOLFOX) for colorectal cancer diagnosed in December 2023 presents to the ER due to inability to urinate starting today. Denies fever, chills, new flank pain, dysuria, hematuria, change in urine smell. In the ER bladder scan showed 800 mL. Attempted Mason catheter was successful although not fully draining her bladder as can be seen on CT scan. Urology was contacted by ER provider and will be seen later today. No prior radiation. She was notes 1 month history of right sided, buttocks and leg pain. Original injury was when she slipped and fell on the ice with right sided radicular pain since then going down to her knee. A few days off this her dog knocked her down in addition. She has been having this lumbar radicular pain since then with no prior MRI imaging. No bowel issues. Discharge Plan Discharge Items Reason For Visit: LUMBAR RADICULOPATHY, URINE RETENTION Condition on Discharge: Fair Follow-up/Referrals: Zain Diaz DO [Primary Care Provider] - Medications and DC Order Prescriptions: No Action Anoro Ellipta 62.5-25 mcg/actuation blister with device 1 inh inhalation QAM Qty: 60 5RF bupropion HCl 300 mg tablet extended release 24 hr 300 mg PO QAM trazodone 50 mg tablet 50 mg PO HS PRN (Reason: Insomnia) citalopram [Celexa] 20 mg tablet 20 mg PO QAM oxycodone 5 mg Tablet 5 mg PO UD PRN (Reason: Pain) Rx Instructions: Q4-6H acetaminophen [Tylenol Ex Str Rapid Release] 500 mg Tablet 500 mg PO Q6H PRN (Reason: Pain) baclofen 10 mg tablet 10 mg PO TID PRN (Reason: Muscle Spasm) omeprazole 20 mg capsule,delayed release(DR/EC) 20 mg PO BID lurasidone 120 mg tablet 120 mg PO QPM Admission Data Admit Date/Time: 07/08/24 13:39 Attending Provider: Ravindra Perez Admit Provider: Enrique Jon Primary Care Provider: Zain Diaz Other Providers: Enrique Jon; [facility] Hospital Stay Data Consultations 07/08/24 13:08 ED Decision to Admit Stat 07/08/24 13:23 Consult Urology Stat Diagnostic Imagining Performed 07/08/24 11:16 CT Abd and Pelvis [CT abd pelvis IV con only] Stat 07/08/24 13:30 MRI Lumbar Spine [MR lumbar spine wo/w con] Stat Coding Diagnoses Urine retention R33.9 Sacral fracture S32.10XA Encounter type: initial encounter Fracture morphology: unspecified fracture morphology Fracture type: closed Lumbar radiculopathy, acute M54.16 Leukocytosis D72.829 Leukocytosis type: unspecified Primary adenocarcinoma of ascending colon and hepatic flexure C18.2; C18.3
[2024-07-09 15:20] VITALS: PULSE 84
[2024-07-09] MEDS ORDERED: LURASIDONE HCL 20 MG TAB PO SCH (15:30)
== END 2024-07-09 15:44 | disposition home or self-care (01) | DRG 543 ==
LOC: EDSEX → ED 10:54 → SUATTDRO 13:39 → 3E 13:39